=== PATIENT | male | born 1950 | race Caucasian/White ===

== ENCOUNTER 2017-12-11 03:58 | Observation (INO) | payer MEDICARE, OTHER ==
[2017-12-11] MEDS ORDERED: NITROGLYCERIN SL TABS 0.4 MG TAB SUBLINGUAL PRN (04:35)
[2017-12-11] MEDS ORDERED: diphenhydrAMINE 25 MG CAP PO PRN (04:37)
[2017-12-11] MEDS ORDERED: MELATONIN 1 MG TAB PO PRN (04:37)
--- NOTE | 2017-12-11 04:38 | ED ---
Chest Pain HPI - General Chief Complaint: Chest Pain Stated Complaint: Chest pain Time Seen by Provider: 12/11/17 04:06 Source: patient Mode of arrival: EMS Limitations: no limitations - History of Present Illness Initial Comments: This patient is 67-year-old man transferred here from [facility]. He presented there with substernal chest pain. He's been having intermittent episodes like this going back days to weeks. He states that the pain is brought on by exertion and relieved by rest. He states that he also believes the pain can be brought on if his potassium gets low, though he also gets body aches associated with this. The patient had gone to [facility], the physician there had discussed his case with college hire who felt that he should be transferred here to have telemetry monitoring and serial cardiac enzymes. The patient states that his symptoms have resolved by the time he arrives here. MD Complaint: chest pain -: days(s) Onset: during exertion Pain Location: substernal Pain Radiation: none Severity: moderate Quality: aching Consistency: now resolved Improves With: rest, other (Potassium) - Related Data Home Medications Medication Instructions Recorded Confirmed ALPRAZolam [Xanax] 0.25 mg PO TID 12/11/17 12/11/17 Aspirin EC [Ecotrin Low Dose] 81 mg PO DAILY 12/11/17 12/11/17 Atenolol [Tenormin] 25 mg PO DAILY 12/11/17 12/11/17 Furosemide [Lasix] 40 mg PO BID 12/11/17 12/11/17 Metolazone [Zaroxolyn] 5 mg PO DAILY 12/11/17 12/11/17 Potassium Chloride ER [K-Dur 20] 20 meq PO DAILY 12/11/17 12/11/17 Previous Rx's Medication Instructions Recorded Clopidogrel [Plavix] 75 mg PO DAILY #30 tab 12/17/13 Nitroglycerin Sl Tabs [Nitrostat] 0.4 mg SUBLINGUAL Q5M PRN #25 tab 03/23/14 Allergies Allergy/AdvReac Type Severity Reaction Status Date / Time heparin Allergy Unknown Verified 12/11/17 09:31 warfarin [From Coumadin] Allergy Unknown Verified 12/11/17 09:31 lisinopril AdvReac Intermediate Unknown Verified 12/11/17 09:31 Review of Systems ROS Statement: Those systems with pertinent positive or pertinent negative responses have been documented in the HPI. ROS Other: All systems not noted in ROS Statement are negative. Constitutional: Denies: fever Respiratory: Denies: cough, dyspnea Cardiovascular: Reports: chest pain, dyspnea on exertion. Denies: palpitations , orthopnea, edema, syncope Gastrointestinal: Denies: abdominal pain, vomiting, diarrhea Genitourinary: Denies: dysuria, hematuria Musculoskeletal: Denies: back pain Skin: Denies: rash Neurological: Denies: headache, weakness, numbness EKG Findings - EKG Results: EKG: interpreted by ERMD, normal axis EKG shows: atrial fibrillation - Blocks, [place], Hypertrophy, ST Abn: Repolarization changes or abnormalities: ST or T wave suggestive of ischemia ( There are ST depressions in 2, 3, aVF, V3 through 5 concerning for ischemia. The transferring physician reports these are present on the previous EKG) Past Medical History Past Medical History: Chest Pain / Angina, Hyperlipidemia, Hypertension, Myocardial Infarction ([place]), Mitral Valve Prolapse (MVP) Additional Past Medical History / Comment(s): hx closed head injury, mild he will lysis likely related to his mitral valve repair and ring placement causing intravascular hemolytic lysis. Was seen by hematology back in September 2013 hospitalization. CABG 08/27/2013 Last Myocardial Infarction Date:: 2004 History of Any Multi-Drug Resistant Organisms: None Reported Past Surgical History: Coronary Bypass/CABG, Heart Catheterization With Stent, Tonsillectomy Additional Past Surgical History / Comment(s): mitral valve repair Past Anesthesia/Blood Transfusion Reactions: Previous Problems w/ Anesthesia Additional Past Anesthesia/Blood Transfusion Reaction / Comment(s): confusion and lost memory from anesthesia Date of Last Stent Placement:: 2004 Past Psychological History: Anxiety Smoking Status: Former smoker Past Alcohol Use History: None Reported Past Drug Use History: None Reported - Past Family History Father Family Medical History: Myocardial Infarction ([place]) Additional Family Medical History / Comment(s): Father of a heart attack at age 55 General Exam Limitations: no limitations General appearance: alert, in no apparent distress Head exam: Present: atraumatic, normocephalic Eye exam: Present: normal appearance. Absent: scleral icterus, conjunctival injection ENT exam: Present: normal oropharynx Respiratory exam: Present: normal lung sounds bilaterally. Absent: respiratory distress, wheezes, rales, rhonchi, stridor Cardiovascular Exam: Present: irregular rhythm, systolic murmur (Grade 2/6 systolic ejection murmur). Absent: diastolic murmur, rubs, gallop GI/Abdominal exam: Present: soft. Absent: distended, tenderness, guarding, rebound, mass Extremities exam: Present: normal inspection, normal capillary refill. Absent: pedal edema, calf tenderness Back exam: Present: normal inspection. Absent: CVA tenderness (R), CVA tenderness (L) Neurological exam: Present: alert Skin exam: Present: warm, dry, intact, other (Chronic venous stasis changes to the bilateral lower extremities. No evidence of cellulitis.). Absent: rash Course Vital Signs 12/11/17 12/11/17 12/11/17 04:05 04:29 05:11 Temperature 98.2 F 98.1 F Pulse Rate 91 89 Pulse Rate [ 112 H Or First Assist Registered Nurse ] Respiratory 18 18 Rate Blood Pressure 161/84 130/68 O2 Sat by Pulse 100 99 Oximetry Chest Pain [facility] Patient's 67-year-old man with intermittent chest pain, transferred here for telemetry monitoring, serial cardiac enzymes, cardiology evaluation. The patient does have a heparin ALLERGY Disposition Clinical Impression: Chest pain Disposition: ADMITTED IP TO THIS HOSP Condition: Fair
[2017-12-11] MEDS ORDERED: NITROGLYCERIN OINT 1 INCH/GM PACKET TOPICAL SCH (06:00)
[2017-12-11 06:04] VITALS: BMI 27.5
[2017-12-11 08:48] VITALS: RESP 16
[2017-12-11] MEDS ORDERED: LOSARTAN 25 MG TAB PO SCH (09:00)
[2017-12-11] MEDS ORDERED: DILTIAZEM ORAL 60 MG TAB PO SCH (09:00)
[2017-12-11] MEDS ORDERED: ATENOLOL 25 MG TAB PO SCH ×2 (09:00→21:00)
[2017-12-11] MEDS ORDERED: CLOPIDOGREL 75 MG TAB PO SCH (09:00)
[2017-12-11] MEDS ORDERED: FUROSEMIDE 40 MG TAB PO SCH (09:00)
[2017-12-11 09:20] LABS: Albumin 3.9 g/dL (3.5-5.0); Calcium 8.9 mg/dL (8.4-10.2); Total Bilirubin 1.6 mg/dL (0.2-1.3); Total Protein 7.3 g/dL (6.3-8.2)
[2017-12-11] MEDS ORDERED: FUROSEMIDE 10 MG/ML 4 ML VIAL IV SCH (11:15)
--- NOTE | 2017-12-11 11:28 | P.HPIM ---
History of Present Illness 67-year-old gentleman with known history of coronary artery disease with CABG stent to LAD, mitral valve replacement, removal of atrial appendage for atrial fibrillation and as per the patient with heart failure ejection fraction of 40 with 50% given with complaints of chest pressure-like sensation lasted for a few hours denied any diaphoresis was comparing of some on and off shortness of breath cannot did not give a clear history of orthopnea paroxysmal nocturnal dyspnea. Patient's baseline creatinine 2014 was around 0.8 and now around 1.4 patient has mild pleural effusion. Patient denied any fever chills patient was having some chronic cough since his CABG probably from DARIANA inhibitor, patient was also having bilateral pedal edema hypokalemia. Review of Systems REVIEW OF SYSTEMS: CONSTITUTIONAL: No fever, no malaise, no fatigue. HEENT: No recent visual problems or hearing problems. Denied any sore throat. CARDIOVASCULAR: No orthopnea, PND, no palpitations, no syncope. PULMONARY no hemoptysis. GASTROINTESTINAL: No diarrhea, no nausea, no vomiting, no abdominal pain. Normoactive bowel sounds. NEUROLOGICAL: No headaches, no weakness, no numbness. HEMATOLOGICAL: Denies any bleeding or petechiae. GENITOURINARY: Denies any burning micturition, frequency, or urgency. MUSCULOSKELETAL/RHEUMATOLOGICAL: Denies any joint pain, swelling, or any muscle pain. ENDOCRINE: Denies any polyuria or polydipsia. The rest of the 14-point review of systems is negative. Past Medical History Past Medical History: Chest Pain / Angina, Hyperlipidemia, Hypertension, Myocardial Infarction ([place]), Mitral Valve Prolapse (MVP) Additional Past Medical History / Comment(s): hx closed head injury, mild he will lysis likely related to his mitral valve repair and ring placement causing intravascular hemolytic lysis. Was seen by hematology back in September 2013 hospitalization. CABG 08/27/2013 Last Myocardial Infarction Date:: 2004 History of Any Multi-Drug Resistant Organisms: None Reported Past Surgical History: Coronary Bypass/CABG, Heart Catheterization With Stent, Tonsillectomy Additional Past Surgical History / Comment(s): mitral valve repair Past Anesthesia/Blood Transfusion Reactions: Previous Problems w/ Anesthesia Additional Past Anesthesia/Blood Transfusion Reaction / Comment(s): confusion and lost memory from anesthesia Date of Last Stent Placement:: 2004 Past Psychological History: Anxiety Smoking Status: Former smoker Past Alcohol Use History: None Reported Past Drug Use History: None Reported - Past Family History Father Family Medical History: Myocardial Infarction ([place]) Additional Family Medical History / Comment(s): Father of a heart attack at age 55 Medications and Allergies Home Medications Medication Instructions Recorded Confirmed Type Clopidogrel [Plavix] 75 mg PO DAILY #30 tab 12/17/13 12/11/17 Rx Nitroglycerin Sl Tabs [Nitrostat] 0.4 mg SUBLINGUAL Q5M PRN #25 tab 03/23/14 Rx ALPRAZolam [Xanax] 0.25 mg PO TID 12/11/17 12/11/17 History Aspirin EC [Ecotrin Low Dose] 81 mg PO DAILY 12/11/17 12/11/17 History Atenolol [Tenormin] 25 mg PO DAILY 12/11/17 12/11/17 History Furosemide [Lasix] 40 mg PO BID 12/11/17 12/11/17 History Metolazone [Zaroxolyn] 5 mg PO DAILY 12/11/17 12/11/17 History Potassium Chloride ER [K-Dur 20] 20 meq PO DAILY 12/11/17 12/11/17 History Allergies Allergy/AdvReac Type Severity Reaction Status Date / Time heparin Allergy Unknown Verified 12/11/17 09:31 warfarin [From Coumadin] Allergy Unknown Verified 12/11/17 09:31 lisinopril AdvReac Intermediate Unknown Verified 12/11/17 09:31 Physical Exam Vitals: Vital Signs Temp Pulse Pulse Pulse Resp BP BP 12/11/17 08:00 97.7 F 88 16 138/74 12/11/17 06:08 112 H 18 12/11/17 05:11 98.1 F 89 18 130/68 12/11/17 04:29 112 H 12/11/17 04:05 98.2 F 91 18 161/84 Pulse Ox 12/11/17 08:00 97 12/11/17 06:08 12/11/17 05:11 99 12/11/17 04:29 12/11/17 04:05 100 Intake and Output 12/10/17 12/11/17 12/11/17 22:59 06:59 14:59 Intake Total 500 Balance 500 Intake: Oral 500 Other: # Voids 1 Weight 87.1 kg PHYSICAL EXAMINATION: GENERAL: The patient is alert and oriented x3, not in any acute distress. Well developed, well nourished. HEENT: Pupils are round and equally reacting to light. EOMI. No scleral icterus. No conjunctival pallor. Normocephalic, atraumatic. No pharyngeal erythema. No thyromegaly. CARDIOVASCULAR: S1 and S2 present. No murmurs, rubs, or gallops. PULMONARY: Chest is clear to auscultation, no wheezing or crackles. ABDOMEN: Soft, nontender, nondistended, normoactive bowel sounds. No palpable organomegaly. MUSCULOSKELETAL: No joint swelling or deformity. EXTREMITIES: No cyanosis, clubbing, does have bilateral pitting pedal edema NEUROLOGICAL: Gross neurological examination did not reveal any focal deficits. SKIN: No rashes. Results CBC & Chem 7: 12/11/17 04:27 Labs: Abnormal Lab Results - Last 24 Hours (Table) 12/11/17 Range/Units 04:27 Sodium 136 L (137-145) mmol/L Chloride 96 L (98-107) mmol/L BUN 56 H (9-20) mg/dL Creatinine 1.44 H (0.66-1.25) mg/dL Glucose 111 H (74-99) mg/dL Total Bilirubin 1.6 H (0.2-1.3) mg/dL Alkaline Phosphatase 170 H (38-126) U/L Thrombosis Risk Factor Assmnt - Choose All That Apply Each Risk Factor Represents 2 Points: Age 61-74 years Thrombosis Risk Factor Assessment Total Risk Factor Score: 2 Thrombosis Risk Factor Assessment Level: Low Risk Assessment and Plan Plan: chest pain: We'll rule out acute coronary syndromes cardiology is consulted to assess of troponins and EKG EKG showed ST-T wave depressions in anterolateral leads with T-wave inversions in the anterior leads which appear to be old changes. -Congestive heart failure chronic systolic dysfunction mild systolic dysfunction with mild acute exacerbation patient was switched to IV Lasix -Chronic kidney disease stage II with possible acute kidney injury probably from heart failure expected to improve with the Lasix -History of atrial fibrillation removal of atrial appendage in the past patient is not on any anticoagulation at this time. No issues with the atrial fibrillation since his surgery. -Hyperlipidemia -History of mitral valve prolapse status post replacement -Coronary artery disease with CABG in the past -Hypertension
[2017-12-11 11:52] VITALS: BP 145/72; PULSE 102; TEMP 98.1
--- NOTE | 2017-12-11 12:42 | P.DS ---
Providers Date of admission: 12/11/17 04:37 Expected date of discharge: 12/11/17 Attending physician: Bunny Portillo Consults: 12/11/17 04:35 Consult Physician Urgent Consulting Provider: Terry Haney Consult Reason/Comments: chest pain Do you want consulting provider notified?: Yes Primary care physician: [facility] Course: Final Diagnoses: chest pain: rule out acute coronary syndromes cardiology is consulted to assess of troponins and EKG EKG showed ST-T wave depressions in anterolateral leads with T-wave inversions in the anterior leads which appear to be old changes. Cleared by cardiology, patient to [facility], and will see Dr. NORMAN Solano at 1500 today as previously scheduled. -Congestive heart failure chronic systolic dysfunction mild systolic dysfunction with mild acute exacerbation. -Chronic kidney disease stage II with possible acute kidney injury. -History of atrial fibrillation removal of atrial appendage in the past patient is not on any anticoagulation at this time. No issues with the atrial fibrillation since his surgery. -Hyperlipidemia -History of mitral valve prolapse status post replacement -Coronary artery disease with CABG in the past -Hypertension 67-year-old gentleman with known history of coronary artery disease with CABG stent to LAD, mitral valve replacement, removal of atrial appendage for atrial fibrillation and as per the patient with heart failure ejection fraction of 40 with 50% given with complaints of chest pressure-like sensation lasted for a few hours denied any diaphoresis was comparing of some on and off shortness of breath cannot did not give a clear history of orthopnea paroxysmal nocturnal dyspnea. Patient's baseline creatinine 2014 was around 0.8 and now around 1.4 patient has mild pleural effusion. Patient denied any fever chills patient was having some chronic cough since his CABG probably from DARIANA inhibitor, patient was also having bilateral pedal edema hypokalemia. Evaluated by Dr. Meier, cardiology and cleared for discharge.[facility] to proceed [facility], and maintain appointment with Dr. NORMAN Solano at 1500 today as previously scheduled. Denies chest pain, palpitations or increased shortness of breath. Significant clinical improvement. Patient is being discharged home in a stable condition with her prognosis. EXAMINATION: GENERAL: The patient is alert and oriented x3, not in any acute distress. CARDIOVASCULAR: S1 and S2 present. No murmurs, rubs, or gallops. PULMONARY: Chest is clear to auscultation, no wheezing or crackles. ABDOMEN: Soft, nontender, nondistended, normoactive bowel sounds. NEUROLOGICAL: Gross neurological examination did not reveal any focal deficits. The impression and plan of care has been dictated as directed. : I performed a history and examination of this patient, discussed the same with the dictator. I agree with the dictator's note ,documented as a scribe. Any additional findings or plans will be noted. Time taken: 35 minutes Patient Condition at Discharge: Stable Plan - Discharge Summary New Discharge Prescriptions: Continue Clopidogrel [Plavix] 75 mg PO DAILY #30 tab Nitroglycerin Sl Tabs [Nitrostat] 0.4 mg SUBLINGUAL Q5M PRN #25 tab PRN Reason: Chest Pain Potassium Chloride ER [K-Dur 20] 20 meq PO DAILY ALPRAZolam [Xanax] 0.25 mg PO TID Aspirin EC [Ecotrin Low Dose] 81 mg PO DAILY Furosemide [Lasix] 40 mg PO BID Changed Atenolol [Tenormin] 25 mg PO BID #0 Discontinued Metolazone [Zaroxolyn] 5 mg PO DAILY Discharge Medication List Clopidogrel [Plavix] 75 mg PO DAILY #30 tab 12/17/13 [Rx] Nitroglycerin Sl Tabs [Nitrostat] 0.4 mg SUBLINGUAL Q5M PRN #25 tab 03/23/14 [Rx ] ALPRAZolam [Xanax] 0.25 mg PO TID 12/11/17 [History] Aspirin EC [Ecotrin Low Dose] 81 mg PO DAILY 12/11/17 [History] Atenolol [Tenormin] 25 mg PO BID #0 12/11/17 [Rx] Furosemide [Lasix] 40 mg PO BID 12/11/17 [History] Potassium Chloride ER [K-Dur 20] 20 meq PO DAILY 12/11/17 [History] Follow up Appointment(s)/Referral(s): Charles Antoine MD [Primary Care Provider] - 3 Days Lavonne Solano MD [STAFF PHYSICIAN] - 12/11/17 Ambulatory/Diagnostic Orders: Complete Blood Count w/diff [LAB.AMB] Time Frame: 3 Days, Location: None Selected
--- NOTE | 2017-12-11 14:21 | P.CRDCN ---
History of Present Illness History of present illness: Mr. 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 He recently established with Dr. NORMAN Solano last week. He had previously followed with Dr. Okeefe. When he saw Dr. Solano last week his medications were adjusted. He was previously on aldactone which was stopped due to significant breast tenderness. Blood work was drawn one week after stopping aldactone and his potassium was 2.7. He was called at home and instructed to take increased oral potassium and then see Dr. Solano in the office today at 1500. He states he was trying to take the increased potassium but he felt so weak, tired and was crampy all over. He went to ED at [facility] and his potassium was 3.3, magnesium 2.2. He was transferred here for further evaluation. He denies chest pain, shortness of breath, nausea, vomiting, palpitations, diaphoresis or dizziness. He states he is feeling much better with no further symptoms of weakness or fatigue. EKG reveals atrial fibrillation with controlled ventricular response, heart rate 85, ST depression noted in the inferior leads with T-wave inversion, ST depression noted in precordial leads. Compared to old EKG this is not a new finding. Laboratory data obtained here reveals sodium 136, creatinine 1.44, proBNP 2002 130, cardiac enzymes negative 1. Current cardiac medications include aspirin 81 mg daily, atenolol 25 mg twice a day, Plavix 75 mg daily, Lasix 40 mg twice a day potassium supplementation. Most recently underwent a RAQUEL at [facility] July 2017 revealed reduced LV systolic function with ejection fraction 40-45%, mildly thickened mitral valve leaflets with moderate to severe MR, mild systolic flattening of the septum, moderately dilated left atrium, moderately to severely dilated right atrium and moderate tricuspid regurgitation. Review of Systems At the time of my exam: CONSTITUTIONAL: Denies fever. Denies chills. EYES: Denies blurred vision. Denies vision changes. Denies eye pain. EARS, NOSE, MOUTH & THROAT: Denies headache. Denies sore throat. Denies ear pain. CARDIOVASCULAR: Denies chest pain. Denies shortness of breath. Denies orthopnea. Denies PND. Denies palpitations. RESPIRATORY: Denies cough. GASTROINTESTINAL: Denies abdominal pain. Denies diarrhea. Denies constipation. Denies nausea. Denies vomiting. MUSCULOSKELETAL: Denies myalgias. INTEGUMENTARY: Denies pruitis. Denies rash. NEUROLOGIC: Denies numbness. Denies tingling. Denies weakness. PSYCHIATRIC: Denies anxiety. Denies depression. ENDOCRINE: Denies fatigue. Denies weight change. Denies polydipsia. Denies polyurina. GENITOURINARY: Denies burning, hematuria or urgency with micturation. HEMATOLOGIC: Denies history of anemia. Denies bleeding. Past Medical History Past Medical History: Chest Pain / Angina, Hyperlipidemia, Hypertension, Myocardial Infarction ([place]), Mitral Valve Prolapse (MVP) Additional Past Medical History / Comment(s): hx closed head injury, mild he will lysis likely related to his mitral valve repair and ring placement causing intravascular hemolytic lysis. Was seen by hematology back in September 2013 hospitalization. CABG 08/27/2013 Last Myocardial Infarction Date:: 2004 History of Any Multi-Drug Resistant Organisms: None Reported Past Surgical History: Coronary Bypass/CABG, Heart Catheterization With Stent, Tonsillectomy Additional Past Surgical History / Comment(s): mitral valve repair Past Anesthesia/Blood Transfusion Reactions: Previous Problems w/ Anesthesia Additional Past Anesthesia/Blood Transfusion Reaction / Comment(s): confusion and lost memory from anesthesia Date of Last Stent Placement:: 2004 Past Psychological History: Anxiety Smoking Status: Former smoker Past Alcohol Use History: None Reported Past Drug Use History: None Reported - Past Family History Father Family Medical History: Myocardial Infarction ([place]) Additional Family Medical History / Comment(s): Father of a heart attack at age 55 Medications and Allergies Home Medications Medication Instructions Recorded Confirmed Type Clopidogrel [Plavix] 75 mg PO DAILY #30 tab 12/17/13 12/11/17 Rx Nitroglycerin Sl Tabs [Nitrostat] 0.4 mg SUBLINGUAL Q5M PRN #25 tab 03/23/14 Rx ALPRAZolam [Xanax] 0.25 mg PO TID 12/11/17 12/11/17 History Aspirin EC [Ecotrin Low Dose] 81 mg PO DAILY 12/11/17 12/11/17 History Atenolol [Tenormin] 25 mg PO BID #0 12/11/17 12/11/17 Rx Furosemide [Lasix] 40 mg PO BID 12/11/17 12/11/17 History Potassium Chloride ER [K-Dur 20] 20 meq PO DAILY 12/11/17 12/11/17 History Allergies Allergy/AdvReac Type Severity Reaction Status Date / Time heparin Allergy Unknown Verified 12/11/17 09:31 warfarin [From Coumadin] Allergy Unknown Verified 12/11/17 09:31 lisinopril AdvReac Intermediate Unknown Verified 12/11/17 09:31 Physical Exam Vitals: Vital Signs Temp Pulse Pulse Pulse Resp BP BP 12/11/17 11:51 98.1 F 102 H 16 145/72 12/11/17 08:00 97.7 F 88 16 138/74 12/11/17 06:08 112 H 18 12/11/17 05:11 98.1 F 89 18 130/68 12/11/17 04:29 112 H 12/11/17 04:05 98.2 F 91 18 161/84 Pulse Ox 12/11/17 11:51 97 12/11/17 08:00 97 12/11/17 06:08 12/11/17 05:11 99 12/11/17 04:29 12/11/17 04:05 100 Intake and Output 12/10/17 12/11/17 12/11/17 22:59 06:59 14:59 Intake Total 500 Balance 500 Intake: Oral 500 Other: Voiding Method Toilet # Voids 1 Weight 87.1 kg Blood pressure 138/74 heart rate 88 afebrile maintaining oxygen saturation on room air GENERAL: This is a 67-year-old male in no apparent distress at the time of my examination. HEENT: Head is atraumatic, normocephalic. Pupils are equal, round. Sclerae anicteric. Conjunctivae are clear. Mucous membranes of the mouth are moist. Neck is supple. There is no jugular venous distention. No carotid bruit is heard. LUNGS: Clear to auscultation no wheezes, rales or rhonchi. No chest wall tenderness is noted on palpation or with deep breathing. HEART: Irregular rate and rhythm with systolic ejection murmur, no rubs or gallops. S1 and S2 heard. ABDOMEN: Soft, nontender. Bowel sounds are heard. No organomegaly noted. EXTREMITIES: 1+ bilateral lower extremity edema and no calf tenderness noted. Patient states this is much improved over the previous week. VASCULAR: Radial and dorsalis pedis pulses palpated, no evidence of clubbing. NEUROLOGIC: Patient is awake, alert and oriented x3. Results 12/11/17 04:27 Cardiac Enzymes 12/11/17 12/11/17 Range/Units 04:27 04:27 AST 45 (17-59) U/L Troponin I 0.019 (0.000-0.034) ng/mL Comprehensive Metabolic Panel 12/11/17 Range/Units 04:27 Sodium 136 L (137-145) mmol/L Potassium (3.5-5.1) mmol/L Chloride 96 L (98-107) mmol/L Carbon Dioxide 27 (22-30) mmol/L BUN 56 H (9-20) mg/dL Creatinine 1.44 H (0.66-1.25) mg/dL Glucose 111 H (74-99) mg/dL Calcium 8.9 (8.4-10.2) mg/dL AST 45 (17-59) U/L ALT 37 (21-72) U/L Alkaline Phosphatase 170 H (38-126) U/L Total Protein 7.3 (6.3-8.2) g/dL Albumin 3.9 (3.5-5.0) g/dL Intake and Output 12/10/17 12/11/17 12/11/17 22:59 06:59 14:59 Intake Total 500 Balance 500 Intake: Oral 500 Other: Voiding Method Toilet # Voids 1 Weight 87.1 kg 12/11/17 04:27 Assessment and Plan Assessment: ASSESSMENT Hypokalemia, resolved Chronic persistent atrial fibrillation not on middle or intermediate school principal anticoagulation History of coronary artery disease status post bypass grafting and multiple stents History of ischemic cardiomyopathy, last ejection fraction 40-45% Hypertension Dyslipidemia, patient refuses to take statin medication. History of mitral valve prolapse status post repair and subsequent mitral regurgitation PLAN Potassium level has significantly improved. Ongoing lower extremity edema is improving with recent medications changes per Dr. Solano. Stable from a cardiac perspective to go home on current medications to see Dr. Solano in the office at 1500 today. Thank you kindly for this consultation. Nurse Practitioner note has been reviewed, I agree with a documented findings and plan of care. Patient was seen and examined.
[2017-12-11 15:21] LABS: Potassium 3.3 mmol/L (3.5-5.1)
[2017-12-11] MEDS ORDERED: ATORVASTATIN 80 MG TAB PO SCH (21:00)
[2017-12-12] MEDS ORDERED: ASPIRIN 325 MG TAB PO SCH (09:00)
[2017-12-12] MEDS ORDERED: ASPIRIN 81 MG PO SCH (09:00)
== END 2017-12-11 13:17 | disposition home or self-care (01) ==
LOC: EC 03:58 → 3OBS 04:37
PROVIDERS: ADMIT Internal Medicine; ATTEND Internal Medicine
DX: R07.89 Other chest pain (principal); E87.6 Hypokalemia; J90 Pleural effusion, not elsewhere classified; I25.5 Ischemic cardiomyopathy; I48.1 Persistent atrial fibrillation; I48.2 Chronic atrial fibrillation; I13.0 Hypertensive heart and chronic kidney disease with heart failure and stage 1 through stage 4 chronic kidney disease, or unspecified chronic kidney disease; N18.2 Chronic kidney disease, stage 2 (mild); I50.23 Acute on chronic systolic (congestive) heart failure; I36.1 Nonrheumatic tricuspid (valve) insufficiency; I25.10 Atherosclerotic heart disease of native coronary artery without angina pectoris; F41.9 Anxiety disorder, unspecified; E78.5 Hyperlipidemia, unspecified; Z79.82 Long term (current) use of aspirin; Z79.02 Long term (current) use of antithrombotics/antiplatelets; Z79.899 Other long term (current) drug therapy; Z88.8 Allergy status to other drugs, medicaments and biological substances; Z95.1 Presence of aortocoronary bypass graft; Z95.5 Presence of coronary angioplasty implant and graft; Z95.2 Presence of prosthetic heart valve; Z87.891 Personal history of nicotine dependence; Z87.820 Personal history of traumatic brain injury; Z82.49 Family history of ischemic heart disease and other diseases of the circulatory system
CPT/HCPCS: 99285 ×2; 96374; 36415; 93005; 83880; 80053; 84484; G0378; J1940

== ENCOUNTER 2019-05-12 14:54 | Observation (INO) | payer MEDICARE, OTHER ==
[2019-05-12] MEDS ORDERED: SODIUM CHLORIDE 0.9% 1,000 ML IV STA ×2 (15:17)
--- NOTE | 2019-05-12 15:28 | ED ---
General Adult HPI - General Chief complaint: Recheck/Abnormal Lab/Rx Stated complaint: low hemoglobin Time Seen by Provider: 05/12/19 15:01 Source: patient, EMS, RN notes reviewed, old records reviewed Mode of arrival: ambulatory Limitations: physical limitation - History of Present Illness Initial comments: Patient is a 69-year-old male with history of heart disease, and recent histories of GI bleed. Patient reports that he is currently staying at [facility] and initially signed hospice papers in regards to his health and multiple cardiac issues. Patient reports that when he was discharged from [facility] and sent to [facility] the past few days. Patient reports on discharge at [facility] they will resume patient Eliquis. Patient reports that he has been feeling increased fatigue, and has noted that he has had some darker stools within the past 2 days of returning to [facility]. Patient states that he has had this happen before when he was placed on Eliquis again. Patient states that he has no specific pains at this time. He states that he is just feeling generally very weak and fell. He reports that he has required blood tra nsfusions in the past. Patient states that upon arriving here he does not want to be on hospice criteria anymore, and wants to be a full code. Patient states that he was told by hospice nurse he could change his mind at any time for hospice versus full care choices. - Related Data Home Medications Medication Instructions Recorded Confirmed ALPRAZolam [Xanax] 0.25 mg PO TID 12/11/17 12/11/17 Aspirin EC [Ecotrin Low Dose] 81 mg PO DAILY 12/11/17 12/11/17 Furosemide [Lasix] 40 mg PO BID 12/11/17 12/11/17 Potassium Chloride ER [K-Dur 20] 20 meq PO DAILY 12/11/17 12/11/17 Previous Rx's Medication Instructions Recorded Clopidogrel [Plavix] 75 mg PO DAILY #30 tab 12/17/13 Nitroglycerin Sl Tabs [Nitrostat] 0.4 mg SUBLINGUAL Q5M PRN #25 tab 03/23/14 Atenolol [Tenormin] 25 mg PO BID #0 12/11/17 Allergies Allergy/AdvReac Type Severity Reaction Status Date / Time heparin Allergy Unknown Verified 12/11/17 09:31 warfarin [From Coumadin] Allergy Unknown Verified 12/11/17 09:31 lisinopril AdvReac Intermediate Unknown Verified 12/11/17 09:31 Review of Systems ROS Statement: Those systems with pertinent positive or pertinent negative responses have been documented in the HPI. ROS Other: All systems not noted in ROS Statement are negative. Past Medical History Past Medical History: Chest Pain / Angina, Hyperlipidemia, Hypertension, Myocardial Infarction ([place]), Mitral Valve Prolapse (MVP) Additional Past Medical History / Comment(s): hx closed head injury, mild he will lysis likely related to his mitral valve repair and ring placement causing intravascular hemolytic lysis. Was seen by hematology back in September 2013 hospitalization. CABG 08/27/2013 Last Myocardial Infarction Date:: 2004 History of Any Multi-Drug Resistant Organisms: None Reported Past Surgical History: Coronary Bypass/CABG, Heart Catheterization With Stent, Tonsillectomy Additional Past Surgical History / Comment(s): mitral valve repair Past Anesthesia/Blood Transfusion Reactions: Previous Problems w/ Anesthesia Additional Past Anesthesia/Blood Transfusion Reaction / Comment(s): confusion and lost memory from anesthesia Date of Last Stent Placement:: 2004 Past Psychological History: Anxiety Smoking Status: Former smoker Past Alcohol Use History: None Reported Past Drug Use History: None Reported - Past Family History Father Family Medical History: Myocardial Infarction ([place]) Additional Family Medical History / Comment(s): Father of a heart attack at age 55 General Exam - General Exam Comments Initial Comments: 69-year-old male. Patient appears pale. He is resting comfortably in bed. Denies any complaints of pain. Does appear to be generally weak. Limitations: physical limitation General appearance: alert, in no apparent distress Head exam: Present: atraumatic, normocephalic, normal inspection Eye exam: Present: normal appearance, PERRL, EOMI. Absent: scleral icterus, conjunctival injection, periorbital swelling ENT exam: Present: normal exam, mucous membranes moist Neck exam: Present: normal inspection. Absent: tenderness, meningismus, lymphadenopathy Respiratory exam: Present: normal lung sounds bilaterally. Absent: respiratory distress, wheezes, rales, rhonchi, stridor Cardiovascular Exam: Present: regular rate, normal rhythm, normal heart sounds. Absent: systolic murmur, diastolic murmur, rubs, gallop, clicks GI/Abdominal exam: Present: soft, normal bowel sounds, other. Absent: distended, tenderness, guarding, rebound, rigid Rectal exam: Present: normal rectal tone, black stool. Absent: normal inspection Extremities exam: Present: normal inspection, full ROM, normal capillary refill. Absent: tenderness, pedal edema, joint swelling, calf tenderness Back exam: Present: normal inspection Neurological exam: Present: alert, oriented X3, CN II-XII intact Psychiatric exam: Present: normal affect, normal mood Skin exam: Present: warm, dry, intact, normal color. Absent: rash Course Vital Signs 05/12/19 14:57 Temperature 97.0 F L Pulse Rate 101 H Respiratory 18 Rate Blood Pressure 116/70 O2 Sat by Pulse 100 Oximetry EKG Findings - EKG Comments: EKG Findings:: EKG shows atrial fibrillation, Patient reports this is chronic. ST-T wave abnormality considering anterolateral ischemia. Patient saturating 94 bpm. [place] normal undetected. QRS duration 88 ms. QT QTc is 360/450. Medical Decision Making - Medical Decision Making 59-year-old male presents from [facility], for low hemoglobin weakness. Patient denies pains. Patient is of sound mind and states that he does not want to be on hospice upon arriving to emergency department at this time. And does want full resuscitation and blood products. He does have an occult positive stool. Currently pending records from [facility] for patient's previous scopes within the past month for previous GI bleed. He reports he believes that this started after he was resumed on Elquis when returning to the [facility] facility the past 2 days. Patient is stool occult positive. Patient is hemoglobin at this time is 6.9. Given 1 unit of PRBCs. Patient had EKG which shows atrial fibrillation, with some anterolateral T-wave inversions. These were present on previous EKGs. He denies any chest pain. I discussed the case with Dr. Daugherty will admit the Patient. I then discussed the case with Allyssa SANTIAGO for [facility] hospitalist. Consult GI. - Lab Data Result diagrams: 05/12/19 15:39 05/12/19 15:39 Lab Results 05/12/19 05/12/19 05/12/19 Range/Units 15:39 15:39 15:39 WBC 9.3 (3.8-10.6) k/uL RBC 2.65 L (4.30-5.90) m/uL Hgb 6.9 L* (13.0-17.5) gm/dL Hct 22.9 L (39.0-53.0) % MCV 86.2 (80.0-100.0) fL MCH 26.1 (25.0-35.0) pg MCHC 30.3 L (31.0-37.0) g/dL RDW 20.6 H (11.5-15.5) % Plt Count 250 (150-450) k/uL Neutrophils % 78 % Lymphocytes % 9 % Monocytes % 6 % Eosinophils % 5 % Basophils % 0 % Neutrophils # 7.3 (1.3-7.7) k/uL Lymphocytes # 0.9 L (1.0-4.8) k/uL Monocytes # 0.5 (0-1.0) k/uL Eosinophils # 0.4 (0-0.7) k/uL Basophils # 0.0 (0-0.2) k/uL Hypochromasia Marked Poikilocytosis Slight Anisocytosis Moderate APTT (22.0-30.0) sec Sodium 130 L (137-145) mmol/L Potassium 4.6 (3.5-5.1) mmol/L Chloride 97 L (98-107) mmol/L Carbon Dioxide 27 (22-30) mmol/L Anion Gap 6 mmol/L BUN 43 H (9-20) mg/dL Creatinine 1.34 H (0.66-1.25) mg/dL Est GFR (CKD-EPI)AfAm 63 (>60 ml/min/1.73 sqM) Est GFR (CKD-EPI)NonAf 55 (>60 ml/min/1.73 sqM) Glucose 116 H (74-99) mg/dL Plasma Lactic Acid Angel (0.7-2.0) mmol/L Calcium 8.2 L (8.4-10.2) mg/dL Magnesium 2.2 (1.6-2.3) mg/dL Total Bilirubin 1.3 (0.2-1.3) mg/dL AST 27 (17-59) U/L ALT 11 (4-49) U/L Alkaline Phosphatase 231 H (38-126) U/L Total Protein 6.6 (6.3-8.2) g/dL Albumin 2.9 L (3.5-5.0) g/dL Lipase 232 (23-300) U/L Stool Occult Blood (Negative) Blood Type A Positive Blood Type Recheck A Pos Bld Type Recheck Status No Antibody Screen NEGATIVE Crossmatch See Detail Spec Expiration Date 05/15/2019 - 233805/12/19 05/12/19 05/12/19 Range/Units 15:39 15:39 15:50 WBC (3.8-10.6) k/uL RBC (4.30-5.90) m/uL Hgb (13.0-17.5) gm/dL Hct (39.0-53.0) % MCV (80.0-100.0) fL MCH (25.0-35.0) pg MCHC (31.0-37.0) g/dL RDW (11.5-15.5) % Plt Count (150-450) k/uL Neutrophils % % Lymphocytes % % Monocytes % % Eosinophils % % Basophils % % Neutrophils # (1.3-7.7) k/uL Lymphocytes # (1.0-4.8) k/uL Monocytes # (0-1.0) k/uL Eosinophils # (0-0.7) k/uL Basophils # (0-0.2) k/uL Hypochromasia Poikilocytosis Anisocytosis APTT 24.9 (22.0-30.0) sec Sodium (137-145) mmol/L Potassium (3.5-5.1) mmol/L Chloride (98-107) mmol/L Carbon Dioxide (22-30) mmol/L Anion Gap mmol/L BUN (9-20) mg/dL Creatinine (0.66-1.25) mg/dL Est GFR (CKD-EPI)AfAm (>60 ml/min/1.73 sqM) Est GFR (CKD-EPI)NonAf (>60 ml/min/1.73 sqM) Glucose (74-99) mg/dL Plasma Lactic Acid Angel 1.3 (0.7-2.0) mmol/L Calcium (8.4-10.2) mg/dL Magnesium (1.6-2.3) mg/dL Total Bilirubin (0.2-1.3) mg/dL AST (17-59) U/L ALT (4-49) U/L Alkaline Phosphatase (38-126) U/L Total Protein (6.3-8.2) g/dL Albumin (3.5-5.0) g/dL Lipase (23-300) U/L Stool Occult Blood Positive (Negative) Blood Type Blood Type Recheck Bld Type Recheck Status Antibody Screen Crossmatch Spec Expiration Date Disposition Clinical Impression: GI bleed Disposition: ADMITTED IP TO THIS [facility] Condition: Stable Is patient prescribed a controlled substance at d/c from ED?: No Referrals: Charles Antoine MD [Primary Care Provider] - 1-2 days Time of Disposition: 17:11
[2019-05-12 16:16] LABS: Anisocytosis Moderate; Basophils % (A) 0 %; Eosinophils # (A) 0.4 k/uL (0-0.7); Eosinophils % (A) 5 %; HCT 22.9 % (39.0-53.0); Hypochromasia Marked; Lymphocytes # (A) 0.9 k/uL (1.0-4.8); Lymphocytes % (A) 9 %; MCH 26.1 pg (25.0-35.0); MCHC 30.3 g/dL (31.0-37.0); MCV 86.2 fL (80.0-100.0); Mean Platelet Volume 9.3; Monocytes # (A) 0.5 k/uL (0-1.0); Monocytes % (A) 6 %; Neutrophils # (A) 7.3 k/uL (1.3-7.7); Neutrophils % (A) 78 %; Platelet Count 250 k/uL (150-450); Poikilocytosis Slight; RBC 2.65 m/uL (4.30-5.90); RDW 20.6 % (11.5-15.5); WBC 9.3 k/uL (3.8-10.6)
[2019-05-12 16:19] LABS: HGB 6.9 gm/dL (13.0-17.5)
[2019-05-12 16:23] LABS: Albumin 2.9 g/dL (3.5-5.0); Calcium 8.2 mg/dL (8.4-10.2); Magnesium 2.2 mg/dL (1.6-2.3); Potassium 4.6 mmol/L (3.5-5.1); Total Bilirubin 1.3 mg/dL (0.2-1.3); Total Protein 6.6 g/dL (6.3-8.2)
[2019-05-12] MEDS ORDERED: ONDANSETRON 4 MG/2 ML VIAL IVP PRN (17:14)
[2019-05-12] MEDS ORDERED: traMADol 50 MG TAB PO PRN (17:14)
[2019-05-12] MEDS ORDERED: ACETAMINOPHEN TAB 325 MG TAB PO PRN (17:14)
[2019-05-12] MEDS ORDERED: NALOXONE 0.4 MG/ML 1 ML VIAL IV PRN (17:14)
[2019-05-12] MEDS ORDERED: PANTOPRAZOLE 40 MG/10 ML VIAL IVP STA (17:17)
[2019-05-12] MEDS ORDERED: NITROGLYCERIN SL TABS 0.4 MG TAB SUBLINGUAL PRN (17:19)
[2019-05-12 20:56] LABS: Glucose,Whole Blood 135 mg/dL (75-99)
[2019-05-12] MEDS ORDERED: BISACODYL 10 MG SUPP RECTAL PRN (20:58)
[2019-05-12] MEDS ORDERED: ARTIFICIAL TEARS-HYPROMELLOSE DROPS 15 ML BTL BOTH EYES PRN (20:58)
[2019-05-12] MEDS ORDERED: MAGNESIUM HYDROXIDE 2,400 MG/10 ML CUP PO PRN (20:58)
[2019-05-12] MEDS ORDERED: POLYETHYLENE GLYCOL 3350 17 GM POWD.PACK PO PRN (20:58)
[2019-05-12] MEDS ORDERED: IPRATROPIUM-ALBUTEROL 3 ML NEB INHALATION PRN (20:58)
[2019-05-12] MEDS ORDERED: ATENOLOL 25 MG TAB PO SCH (21:00)
[2019-05-12 21:59] LABS: Anisocytosis Slight; Basophils % (A) 0 %; Eosinophils # (A) 0.6 k/uL (0-0.7); Eosinophils % (A) 6 %; HCT 23.6 % (39.0-53.0); Hypochromasia Marked; Lymphocytes % (A) 10 %; MCH 26.4 pg (25.0-35.0); MCHC 29.4 g/dL (31.0-37.0); MCV 89.5 fL (80.0-100.0); Mean Platelet Volume 10.7; Monocytes # (A) 0.6 k/uL (0-1.0); Monocytes % (A) 6 %; Neutrophils # (A) 7.4 k/uL (1.3-7.7); Neutrophils % (A) 76 %; Platelet Count 220 k/uL (150-450); Poikilocytosis Slight; RBC 2.63 m/uL (4.30-5.90); RDW 19.4 % (11.5-15.5); WBC 9.7 k/uL (3.8-10.6)
[2019-05-12 22:02] LABS: HGB 6.9 gm/dL (13.0-17.5)
[2019-05-12] MEDS: ALPRAZolam 0.25 MG TAB PO SCH (22:04)
[2019-05-12] MEDS: FUROSEMIDE 40 MG TAB PO SCH (22:05)
[2019-05-12] MEDS: SODIUM CHLORIDE 0.9% 1,000 ML IV SCH (22:06)
[2019-05-13] MEDS: traMADol 50 MG TAB PO SCH ×4 (01:43→21:04)
[2019-05-13] MEDS: ARTIFICIAL TEARS-HYPROMELLOSE DROPS 15 ML BTL BOTH EYES SCH ×3 (07:56→18:14)
[2019-05-13] MEDS: SENNOSIDES-DOCUSATE SODIUM 1 EACH TAB PO SCH ×2 (07:56→18:14)
[2019-05-13] MEDS: ALPRAZolam 0.25 MG TAB PO SCH ×3 (07:56→21:05)
[2019-05-13] MEDS: METOPROLOL TARTRATE 12.5 MG TAB PO SCH ×2 (07:56→18:14)
[2019-05-13] MEDS ORDERED: PANTOPRAZOLE 40 MG TABLET PO SCH (08:00)
[2019-05-13] MEDS: POTASSIUM CHLORIDE ER 20 MEQ TAB.ER PO SCH (08:01)
[2019-05-13] MEDS: FERROUS SULFATE 325 MG TAB PO SCH (08:01)
[2019-05-13] MEDS: BUMETANIDE 1 MG TAB PO SCH ×2 (08:03→18:13)
[2019-05-13] MEDS: FUROSEMIDE 40 MG TAB PO SCH (08:04)
[2019-05-13] MEDS: PANTOPRAZOLE 40 MG/10 ML VIAL IV SCH (08:04)
[2019-05-13] MEDS ORDERED: BUMETANIDE 1 MG TAB PO SCH (09:00)
[2019-05-13 09:28] LABS: Calcium 7.9 mg/dL (8.4-10.2); Potassium 4.1 mmol/L (3.5-5.1)
[2019-05-13 09:52] LABS: Anisocytosis Slight; HCT 27.1 % (39.0-53.0); HGB 7.9 gm/dL (13.0-17.5); Hypochromasia Marked; MCH 25.9 pg (25.0-35.0); MCHC 29.2 g/dL (31.0-37.0); MCV 88.6 fL (80.0-100.0); Mean Platelet Volume 11.3; Platelet Count 199 k/uL (150-450); Poikilocytosis Moderate; RBC 3.06 m/uL (4.30-5.90); RDW 19.1 % (11.5-15.5); WBC 9.4 k/uL (3.8-10.6)
[2019-05-13 11:11] LABS: Eosinophils # (M) 0.38 k/uL (0-0.7); Lymphocytes # (M) 0.38 k/uL (1.0-4.8); Monocytes # (M) 0.28 k/uL (0-1.0); Neutrophils # (M) 8.37 k/uL (1.3-7.7); Neutrophils % (M) 89 %; Nucleated Red Blood Cells 0 /100 WBC (0-0); Polychromasia Present; Total Cells Counted 100
[2019-05-13 11:12] LABS: Mixed Population RBC Present
[2019-05-13] MEDS ORDERED: MORPHINE ORAL SOLN 10 MG/5 ML CUP PO PRN (15:17)
--- NOTE | 2019-05-13 18:11 | HP ---
HISTORY AND PHYSICAL DATE OF SERVICE: 05/13/2019. CHIEF COMPLAINTS: Weakness, anemia, GI bleed. HISTORY OF PRESENT ILLNESS: This 69-year-old gentleman with a past medical history of multiple medical problems, including history of atrial fibrillation, history of hypertension, hyperlipidemia, history of myocardial infarction, history of mitral valve prolapse, history of closed head injury, being followed by Dr. Antoine in the outpatient setting, was recently evaluated in [facility] because of severe mitral regurgitation with a possible valvular leak also. The patient apparently was transitioned to hospice and was sent to [facility]. In [facility] the patient was noted to have tiredness and weakness, and the patient came to [facility], found to have anemia with hemoglobin 6.9. Two units of transfusion have been given. Patient was admitted for further evaluation and treatment. There is no history of any fever, rigor or chills. No history of headache, loss of consciousness, seizures. The patient had black stools and melena previously. Of note, the patient was evaluated previously at [facility] and had extensive workup, including a capsule endoscopy that showed possible AVMs in the small bowel. The patient also had polypectomy also. Please refer to the reports for further details. In any case, the patient is being transfused and Gastroenterology has been consulted. The patient also reports that he bleeds whenever he takes Eliquis, which was restarted at the time of recent discharge from [facility], apparently. PAST MEDICAL HISTORY: 1. History of atrial fibrillation. 2. History of hypertension. 3. Hyperlipidemia. 4. History of myocardial infarction. 5. GI bleed. 6. CAD, CABG, stent. HOME MEDICATIONS: 1. Ultram 25 mg p.o. b.i.d. 2. Senna 1 tablet p.o. b.i.d. 3. K-Dur 40 mEq p.o. b.i.d. 4. Artificial Teardrops. 5. MiraLAX 17 grams p.o. daily. 6. Protonix 40 mg p.o. daily. 7. Fleet enema. 8. Lopressor 12.5 mg p.o. b.i.d. 9. Milk of Magnesia. 10.Roxanol solution. 11.Levsin 0.125 mg q.4 hours p.r.n. 12.Iron gluconate 320 mg p.o. daily. 13.Bumex 3 mg p.o. b.i.d. 14.Dulcolax 10 mg daily p.r.n. 15.Tessalon Perles 100 mg p.o. t.i.d. p.r.n. 16.Ecotrin 81 mg p.o. daily. 17.Artificial Tears 1 drop both eyes t.i.d. 18.Eliquis 2.5 mg p.o. b.i.d. 19.Xanax 0.25 q.8 p.r.n. ALLERGIES: 1. LIPITOR. 2. DIGOXIN. 3. HEPARIN. 4. COUMADIN. 5. LISINOPRIL. FAMILY HISTORY: History of myocardial infarction in the family. SOCIAL HISTORY: Previous history of smoking. No current smoking or alcohol intake. REVIEW OF SYSTEMS: ENT: No diminished hearing. No diminished vision. CARDIOVASCULAR SYSTEM: No angina, palpitations. RESPIRATORY SYSTEM: No cough, hemoptysis. GI: As mentioned earlier. : No dysuria or retention. NERVOUS SYSTEM: No numbness, weakness. ALLERGY/IMMUNOLOGY: No asthma, hayfever. MUSCULOSKELETAL: As mentioned earlier. HEMATOLOGY/ONCOLOGY: As mentioned earlier. ENDOCRINE: No history of diabetes, hypothyroidism. CONSTITUTIONAL: As mentioned earlier. DERMATOLOGY: Negative. RHEUMATOLOGY: Negative. PSYCHIATRY: As mentioned earlier. PHYSICAL EXAMINATION: Patient alert and oriented x3. Pulse is 95, blood pressure 132/54, respiration 18, temperature 97.6, pulse ox 94% on 2 L. HEENT: Conjunctivae pale. Oral mucosa pale. NECK: Jugular venous distention elevated up to 10 cm. CARDIOVASCULAR SYSTEM: S1, S2 muffled. Ejection systolic murmur present. No S3. No S4. RESPIRATORY SYSTEM: Breath sounds diminished at the bases. A few scattered rhonchi and crackles. ABDOMEN: Soft, non-tender. No mass palpable. LEGS: No edema. No swelling. NERVOUS SYSTEM: Higher functions as mentioned earlier. Moves all 4 limbs. No focal motor or sensory deficit. LYMPHATICS: No lymph node palpable in neck, axillae or groin. SKIN: No ulcer, rash, bleeding. JOINTS: No active deforming arthropathy. LABS: Labs at this time show WBC 9.4, hemoglobin 7.9, sodium 131, potassium 4.4, creatinine 1.29. ASSESSMENT: 1. Acute gastrointestinal bleed with acute on chronic gastrointestinal bleed, possibly secondary to small intestine atriovenous malformation with acute blood loss anemia, status post transfusion, present on admission. 2. Hyponatremia. 3. Increased creatinine; chronic kidney stage III. 4. History of atrial fibrillation. 5. History of hypertension. 6. Hyperlipidemia. 7. On Xarelto. 8. History of myocardial infarction. 9. History of mitral valve prolapse. 10.History of closed-head injury. 11.History of intravascular hemolysis. 12.History of coronary artery disease, coronary artery bypass grafting, stent. 13.History of anxiety. RECOMMENDATIONS AND DISCUSSION: In this 69-year-old gentleman who presented with multiple complex medical issues, we will monitor the patient closely, continue the current medications, continue symptomatic treatment. Otherwise at this time I recommend continuing with transfusions. Monitor hemoglobin closely. Resume the home medications. DVT prophylaxis. Discussed with the patient about the CODE STATUS. As mentioned earlier, apparently the patient was on hospice, referred from [facility] to [facility], but the hospice was canceled. I discussed the prognosis, diagnosis and implications with the patient. At this time the patient would like to continue with FULL CODE at this time. The staff are aware. Once again, guarded prognosis. Further recommendations to follow. A copy of this dictation is being forwarded to Dr. Antoine, who is the primary physician. LAYLA / URSULA: [id number] / JENNIFER
[2019-05-13 18:31] LABS: Anisocytosis Slight; HCT 27.2 % (39.0-53.0); HGB 8.1 gm/dL (13.0-17.5); Hypochromasia Marked; MCH 26.4 pg (25.0-35.0); MCV 88.2 fL (80.0-100.0); Mean Platelet Volume 10.2; Platelet Count 200 k/uL (150-450); Poikilocytosis Moderate; RBC 3.08 m/uL (4.30-5.90); RDW 19.4 % (11.5-15.5)
[2019-05-13] MEDS: SODIUM CHLORIDE 0.9% 1,000 ML IV SCH (21:08)
[2019-05-14] MEDS: traMADol 50 MG TAB PO SCH ×5 (02:38→22:01)
[2019-05-14] MEDS: SODIUM CHLORIDE 0.9% 1,000 ML IV SCH (02:39)
[2019-05-14 08:16] LABS: Anisocytosis Slight; HGB 8.2 gm/dL (13.0-17.5); Hypochromasia Marked; MCH 25.9 pg (25.0-35.0); MCHC 29.2 g/dL (31.0-37.0); MCV 88.6 fL (80.0-100.0); Mean Platelet Volume 10.3; Platelet Count 220 k/uL (150-450); Poikilocytosis Moderate; RBC 3.16 m/uL (4.30-5.90); RDW 19.3 % (11.5-15.5); WBC 8.4 k/uL (3.8-10.6)
[2019-05-14] MEDS: FERROUS SULFATE 325 MG TAB PO SCH (08:23)
[2019-05-14] MEDS: METOPROLOL TARTRATE 12.5 MG TAB PO SCH ×2 (08:23→18:07)
[2019-05-14] MEDS: SENNOSIDES-DOCUSATE SODIUM 1 EACH TAB PO SCH ×2 (08:23→18:07)
[2019-05-14] MEDS: BUMETANIDE 1 MG TAB PO SCH ×2 (08:23→18:07)
[2019-05-14] MEDS: POTASSIUM CHLORIDE ER 20 MEQ TAB.ER PO SCH (08:23)
[2019-05-14] MEDS: ARTIFICIAL TEARS-HYPROMELLOSE DROPS 15 ML BTL BOTH EYES SCH ×3 (08:24→18:08)
[2019-05-14] MEDS: ALPRAZolam 0.25 MG TAB PO SCH ×3 (08:24→22:01)
[2019-05-14] MEDS: PANTOPRAZOLE 40 MG/10 ML VIAL IV SCH (08:25)
[2019-05-14 08:38] LABS: Calcium 7.9 mg/dL (8.4-10.2); Potassium 3.8 mmol/L (3.5-5.1)
--- NOTE | 2019-05-14 09:00 | P.CONS ---
History of Present Illness - Reason for Consult Consult date: 05/13/19 Anemia Requesting physician: Yudith Vicente - Chief Complaint Anemia - History of Present Illness 69-year-old male with medical comorbidities including atrial fibrillation, hypertension, hyperlipidemia, prior myocardial infarction, mitral valve prolapse who was recently evaluated at [facility] due to severe mitral regurgitation, however per the patient was not a candidate for intervention at that time and was sent to monitor was to be transition to hospice care. All at that facility the patient complained of tiredness and weakness and was found to be anemic with a hemoglobin of 6.9. On questioning the patient has had issues with anemia in the past. This was extensively worked up in the summer and fall of 2019 at [facility] with the patient reporting EGD, colonoscopy, video capsule endoscopy as well as multiple push enteroscopy's. Some reports have been able to be retrieved from [facility] with findings of polyps and nonbleeding AVM was noted. The patient reports a secondary to issues with his anemia anticoagulation therapy was held. However the patient had the anticoagulation restarted without his knowledge and subsequently was found to be anemic. He denies any signs or symptoms of GI bleed with no nausea, vomiting, hematemesis, coffee-ground emesis, change in bowel habits, blood per rectum or melanotic stool. Currently hemoglobin was found to 7.9 after transfusion. Patient has been tolerating his diet denies any abdominal pain. Review of Systems REVIEW OF SYSTEMS: CONSTITUTIONAL: Denies any fevers, chills, weight change or fatigue. CARDIOVASCULAR: Denies any chest pain, palpitations high or low blood pressures RESPIRATORY: Denies any shortness of breath, hemoptysis or cough. GENITOURINARY: No dysuria or hematuria. MUSCULOSKELETAL: No weakness reported. SKIN: Denies any new rashes or lesions, jaundice or pallor. PSYCHIATRIC: Denies any depression or anxiety. NEUROLOGY: Denies headache, denies any new focal deficits. EARS/NOSE/THROAT: No recent hearing change, congestion, nasal discharge or sore throat. EYES: No pain in eyes, discharge or change in vision. GASTROINTESTINAL: As per HPI. Past Medical History Past Medical History: Atrial Fibrillation, Chest Pain / Angina, Hyperlipidemia, Hypertension, Myocardial Infarction (OK), Mitral Valve Prolapse (MVP) Additional Past Medical History / Comment(s): hx closed head injury, mild he will lysis likely related to his mitral valve repair and ring placement causing intravascular hemolytic lysis. Was seen by hematology back in September 2013 hospitalization. CABG 08/27/2013. anemia Last Myocardial Infarction Date:: 2004 History of Any Multi-Drug Resistant Organisms: None Reported Past Surgical History: Coronary Bypass/CABG, Heart Catheterization With Stent, Tonsillectomy Additional Past Surgical History / Comment(s): mitral valve repair Past Anesthesia/Blood Transfusion Reactions: Previous Problems w/ Anesthesia Additional Past Anesthesia/Blood Transfusion Reaction / Comm: confusion and lost memory from anesthesia Date of Last Stent Placement:: 2004 Past Psychological History: Anxiety Smoking Status: Former smoker Past Alcohol Use History: None Reported Past Drug Use History: None Reported - Past Family History Father Family Medical History: Myocardial Infarction (OK) Additional Family Medical History / Comment(s): Father of a heart attack at age 55 Medications and Allergies Home Medications Medication Instructions Recorded Confirmed Type ALPRAZolam [Xanax] 0.25 mg PO Q8H PRN 12/11/17 05/12/19 History Aspirin EC [Ecotrin Low Dose] 81 mg PO DAILY@0800 12/11/17 05/12/19 History Potassium Chloride ER [K-Dur 20] 40 meq PO BID@0800,1700 12/11/17 05/12/19 History Apixaban [Eliquis] 2.5 mg PO BID@0800,1700 05/12/19 05/12/19 History Artificial Tears-Hypromellose 1 drop BOTH EYES TID@0800,1200,1700 05/12/19 05/12/19 History [Artificial Tear Drops] Benzonatate [Tessalon Perles] 100 mg PO TID PRN 05/12/19 05/12/19 History Bisacodyl [Dulcolax] 10 mg RECTAL DAILY PRN 05/12/19 05/12/19 History Bumetanide [Bumex] 3 mg PO BID 05/12/19 05/12/19 History Ferrous Gluconate 324 mg PO DAILY@0800 05/12/19 05/12/19 History Hyoscyamine Sulfate [Levsin] 0.125 mg PO Q4H PRN 05/12/19 05/12/19 History Ipratropium-Albuterol Nebulize 3 ml INHALATION RT-Q6H PRN 05/12/19 05/12/19 History [Duoneb 0.5 mg-3 mg/3 ml Soln] MORPHINE ORAL EMIL CONC 20mg/mL 5 mg PO Q4H PRN 05/12/19 05/12/19 History [Roxanol Oral Soln Conc 20MG/ML] Magnesium Hydroxide [Milk of 7,200 mg PO DAILY PRN 05/12/19 05/12/19 History Magnesia Concentrate] Metoprolol Tartrate [Lopressor] 12.5 mg PO BID@0800,1700 05/12/19 05/12/19 History Na Phos,M-B/Na Phos,Di-Ba [Fleet 133 ml RECTAL ONCE PRN 05/12/19 05/12/19 History Adult] Pantoprazole Sodium [Protonix] 40 mg PO DAILY@0800 05/12/19 05/12/19 History Polyethylene Glycol 3350 [Miralax] 17 gm PO DAILY PRN 05/12/19 05/12/19 History Polyvinyl Alcohol/Povidone [Clear 1 drop BOTH EYES Q2H PRN 05/12/19 05/12/19 History Eyes Natural Tears Drop] Sennosides/Docusate Sodium [La 1 tab PO BID@0800,1700 05/12/19 05/12/19 History Colace] traMADol HCL 25 mg PO QID@02,08,14,20 05/12/19 05/12/19 History Allergies Allergy/AdvReac Type Severity Reaction Status Date / Time atorvastatin Allergy Unknown Verified 05/12/19 18:06 digoxin Allergy Unknown Verified 05/12/19 18:06 heparin Allergy Unknown Verified 05/12/19 18:06 warfarin [From Coumadin] Allergy Unknown Verified 05/12/19 18:06 lisinopril AdvReac Intermediate Unknown Verified 05/12/19 18:06 Physical Exam Vitals: Vital Signs Temp Pulse Pulse Pulse Resp BP BP 05/13/19 12:12 97.9 F 76 18 117/65 05/13/19 05:40 97.6 F 95 18 132/54 05/13/19 03:19 97.7 F 96 18 94/57 05/13/19 00:51 97.7 F 87 18 102/59 05/13/19 00:21 97.5 F L 94 18 105/66 05/13/19 00:11 97.5 F L 93 18 110/66 05/12/19 22:09 97.8 F 98 20 116/53 05/12/19 19:09 97.5 F L 90 18 110/66 05/12/19 19:00 97.0 F L 96 18 116/63 05/12/19 17:53 97.0 F L 85 18 106/74 05/12/19 17:23 96.8 F L 85 18 112/53 05/12/19 17:13 97.0 F L 104 H 18 110/57 05/12/19 17:08 97.0 F L 92 18 111/66 05/12/19 14:57 97.0 F L 101 H 18 116/70 Pulse Ox 05/13/19 12:12 100 05/13/19 05:40 94 L 05/13/19 03:19 94 L 05/13/19 00:51 96 05/13/19 00:21 98 05/13/19 00:11 97 05/12/19 22:09 100 05/12/19 19:09 05/12/19 19:00 05/12/19 17:53 100 05/12/19 17:23 100 05/12/19 17:13 05/12/19 17:08 100 05/12/19 14:57 100 Intake and Output 05/12/19 05/13/19 05/13/19 22:59 06:59 14:59 Intake Total 310 550 960 Output Total 600 500 Balance 310 -50 460 Intake: Intake, IV Titration 240 Amount Sodium Chloride 0.9% 1, 240 000 ml @ 20 mls/hr IV . Q24H [facility] Rx#:[id number] Oral 960 Blood Product 310 310 As-1 Unit 310 [id number] As-3 Unit 310 [id number] Output: Urine 600 500 Other: Voiding Method Urinal # Voids 1 Weight 78.018 kg On physical examination, patient appears comfortable in no apparent distress. HEAD: Normocephalic, atraumatic. EYES: No scleral icterus. No conjunctival injection. MOUTH: No lesions, tongue midline. NECK: Trachea midline, no gross abnormalities. CHEST: Clear to auscultation with no wheezing or rhonchi appreciated. HEART: S1-S2 appreciated, irregularly irregular, murmur appreciated. ABDOMEN: Soft, obese. Bowel sounds are positive. No organomegaly. No guarding or rigidity. EXTREMITIES: No pedal edema. SKIN: No rashes, no jaundice. NEUROLOGIC: Alert and oriented x3. No focal deficits. Results CBC & Chem 7: 05/14/19 07:34 05/14/19 07:34 Labs: Abnormal Lab Results - Last 24 Hours (Table) 05/12/19 05/12/19 05/12/19 Range/Units 15:39 15:39 15:39 RBC 2.65 L (4.30-5.90) m/uL Hgb 6.9 L* (13.0-17.5) gm/dL Hct 22.9 L (39.0-53.0) % MCHC 30.3 L (31.0-37.0) g/dL RDW 20.6 H (11.5-15.5) % Neutrophils # (Manual) (1.3-7.7) k/uL Lymphocytes # 0.9 L (1.0-4.8) k/uL Lymphocytes # (Manual) (1.0-4.8) k/uL Sodium 130 L (137-145) mmol/L Chloride 97 L (98-107) mmol/L BUN 43 H (9-20) mg/dL Creatinine 1.34 H (0.66-1.25) mg/dL Glucose 116 H (74-99) mg/dL POC Glucose (mg/dL) (75-99) mg/dL Calcium 8.2 L (8.4-10.2) mg/dL Alkaline Phosphatase 231 H (38-126) U/L Albumin 2.9 L (3.5-5.0) g/dL Crossmatch See Detail 05/12/19 05/12/19 05/13/19 Range/Units 20:54 21:45 08:36 RBC 2.63 L 3.06 L (4.30-5.90) m/uL Hgb 6.9 L* 7.9 L (13.0-17.5) gm/dL Hct 23.6 L 27.1 L (39.0-53.0) % MCHC 29.4 L 29.2 L (31.0-37.0) g/dL RDW 19.4 H 19.1 H (11.5-15.5) % Neutrophils # (Manual) 8.37 H (1.3-7.7) k/uL Lymphocytes # (1.0-4.8) k/uL Lymphocytes # (Manual) 0.38 L (1.0-4.8) k/uL Sodium (137-145) mmol/L Chloride (98-107) mmol/L BUN (9-20) mg/dL Creatinine (0.66-1.25) mg/dL Glucose (74-99) mg/dL POC Glucose (mg/dL) 135 H (75-99) mg/dL Calcium (8.4-10.2) mg/dL Alkaline Phosphatase (38-126) U/L Albumin (3.5-5.0) g/dL Crossmatch 05/13/19 Range/Units 08:48 RBC (4.30-5.90) m/uL Hgb (13.0-17.5) gm/dL Hct (39.0-53.0) % MCHC (31.0-37.0) g/dL RDW (11.5-15.5) % Neutrophils # (Manual) (1.3-7.7) k/uL Lymphocytes # (1.0-4.8) k/uL Lymphocytes # (Manual) (1.0-4.8) k/uL Sodium 131 L (137-145) mmol/L Chloride (98-107) mmol/L BUN 40 H (9-20) mg/dL Creatinine 1.29 H (0.66-1.25) mg/dL Glucose 102 H (74-99) mg/dL POC Glucose (mg/dL) (75-99) mg/dL Calcium 7.9 L (8.4-10.2) mg/dL Alkaline Phosphatase (38-126) U/L Albumin (3.5-5.0) g/dL Crossmatch Assessment and Plan (1) GI bleed Narrative/Plan: 69-year-old male with multiple medical comorbidities who presented due to outpatient laboratory findings of anemia in the setting of anticoagulation therapy. The patient has an extensive cardiac history and was scheduled for valve repair at [facility] however was deemed not to be a candidate and was transitioned to more would where he was given the under hospice care. Was at this facility with the patient was found to be anemic after Eliquis was started on the patient. He has extensive history of anemia in the past while on anticoagulation therapy and reports numerous endoscopies including push enteroscopy, EGD, colonoscopy and video capsule endoscopy at [facility]. Some records were able to be obtained and suggestion is of possible small bowel AVMs. It is for this reason that the patient was not resumed on anticoagulation therapy, however at some point this was restarted without his knowledge and he was subsequently found to be anemic with a hemoglobin of 6.9, currently at 7.9 after transfusion. He denies any signs or symptoms of GI bleeding at this time. Current Visit: Yes Status: Acute Code(s): K92.2 - GASTROINTESTINAL HEMORRHAGE, UNSPECIFIED SNOMED Code(s): 46453351 (2) Anemia associated with acute blood loss Current Visit: Yes Status: Acute Code(s): D62 - ACUTE POSTHEMORRHAGIC ANEMIA SNOMED Code(s): 826889326 Plan: Supportive care Okay for diet Continue to monitor hemoglobin and hematocrit and transfuse as needed Continue to hold anticoagulation therapy Extensive discussion with the patient about his disease state and the risks, benefits and side effects of any endoscopic evaluation, at this time the patient wished to continue with conservative treatment given his extensive workup in the past and he would like to opt to hold anticoagulation and monitor hemoglobin and hematocrit with the idea of endoscopy only if he has any signs or symptoms of GI bleed or further fall in hemoglobin Thank you for allowing us to participate in the care of the patient, we will continue to follow
--- NOTE | 2019-05-14 16:12 | P.PN ---
Subjective Progress Note Date: 05/14/19 Principal diagnosis: Anemia associated with acute blood loss, GI bleed Patient is seen lying in bed reporting a tolerated advancement in his diet. No signs or symptoms of GI bleeding. No abdominal pain reported. Objective - Vital Signs Vital signs: Vital Signs Temp 97.4 F L 05/14/19 12:24 Pulse 90 05/14/19 12:24 Resp 17 05/14/19 12:24 BP 107/63 05/14/19 12:24 Pulse Ox 97 05/14/19 12:24 Intake & Output 05/13/19 05/14/19 05/14/19 18:59 06:59 18:59 Intake Total 960 810 600 Output Total 500 Balance 460 810 600 Intake: Intake, IV Titration 220 Amount Sodium Chloride 0.9% 1, 220 000 ml @ 20 mls/hr IV . Q24H [facility] Rx#:[id number] Oral 960 590 600 Output: Urine 500 Other: Voiding Method Urinal - Exam On physical examination, patient appears comfortable in no apparent distress. HEAD: Normocephalic, atraumatic. EYES: No scleral icterus. No conjunctival injection. MOUTH: No lesions, tongue midline. NECK: Trachea midline, no gross abnormalities significant JVD noted ABDOMEN: Soft, nontender to palpation. Bowel sounds are positive. No organomegaly. No guarding or rigidity. EXTREMITIES: No pedal edema. SKIN: No rashes, no jaundice. NEUROLOGIC: Alert and oriented x3. No focal deficits. - Labs CBC & Chem 7: 05/14/19 07:34 05/14/19 07:34 Labs: Abnormal Lab Results - Last 24 Hours (Table) 05/13/19 05/14/19 05/14/19 Range/Units 18:07 07:34 07:34 RBC 3.08 L 3.16 L (4.30-5.90) m/uL Hgb 8.1 L 8.2 L (13.0-17.5) gm/dL Hct 27.2 L 28.0 L (39.0-53.0) % MCHC 30.0 L 29.2 L (31.0-37.0) g/dL RDW 19.4 H 19.3 H (11.5-15.5) % Sodium 131 L (137-145) mmol/L BUN 38 H (9-20) mg/dL Calcium 7.9 L (8.4-10.2) mg/dL Assessment and Plan (1) GI bleed Narrative/Plan: 69-year-old male with multiple medical comorbidities who presented due to outpatient laboratory findings of anemia in the setting of anticoagulation therapy. The patient has an extensive cardiac history and was scheduled for valve repair at [facility] however was deemed not to be a candidate and was transitioned to [facility] where he was given the under hospice care. Was at this facility with the patient was found to be anemic after Eliquis was started on the patient. He has extensive history of anemia in the past while on anticoagulation therapy and reports numerous endoscopies including push enterosc opy, EGD, colonoscopy and video capsule endoscopy at [facility]. Some records were able to be obtained and suggestion is of possible small bowel AVMs. It is for this reason that the patient was not resumed on anticoagulation therapy, however at some point this was restarted without his knowledge and he was subsequently found to be anemic with a hemoglobin of 6.9, currently at 8.2 from 8.1 yesterday with no signs or symptoms of GI bleeding noted. Current Visit: Yes Status: Acute Code(s): K92.2 - GASTROINTESTINAL HEMORRHAGE, UNSPECIFIED SNOMED Code(s): 16063654 (2) Anemia associated with acute blood loss Current Visit: Yes Status: Acute Code(s): D62 - ACUTE POSTHEMORRHAGIC ANEMIA SNOMED Code(s): 488242763 Plan: Supportive care Okay for diet Continue to monitor hemoglobin and hematocrit and transfuse as needed Continue to hold anticoagulation therapy Extensive discussion with the patient about his disease state and the risks, benefits and side effects of any endoscopic evaluation, at this time the patient wished to continue with conservative treatment given his extensive workup in the past and he would like to opt to hold anticoagulation and monitor hemoglobin and hematocrit with the idea of endoscopy only if he has any signs or symptoms of GI bleed or further fall in hemoglobin Okay for discharge when otherwise medically stable Thank you for allowing us to participate in the care of the patient, the GI serv ice will stand by, please call us back any questions or concerns
--- NOTE | 2019-05-14 16:18 | CDI ---
Documentation Clarification Form Date: 05/14/2019 04:00:58 PM From: Lakesha Doshi RN, CCDS Admit Date: 05/12/2019 04:57:00 PM Patient Name: Joshua Lr Visit Number: [id number] Discharge Date: ATTENTION: The Clinical Documentation Specialists (CDI) and [facility] Coding Staff appreciate your assistance in clarifying documentation. Please respond to the clarification below the line at the bottom and electronically sign. The CDI & [facility] Coding staff will review the response and follow-up if needed. Please note: Queries are made part of the Legal Health Record. If you have any questions, please contact the author of this message via ITS. Dr. Yudith Vicente The EKD on admission to the ER on 05/12/19 is showing Atrial Fibrillation with vent rate 94 bpm. The patient past medical history also has atrial fibrillation and further specificity is indicated. History/Risk Factors: Atrial Fibrillation, Hypertension, GI bleed, Mitral valve prolapse, severe mitral regurgitation Clinical Indicators: 69-year-old male who present on 05/12/19 with complaints of weakness, found to have anemia with hemoglobin 6.9. 05/12/19 EKG/telemetry: Atrial Fibrillation at 94 bpm, ST & T wave abnormality, consider anterolateral ischemia Treatment: .9 % saline 1/L IV bolus, than @ 20 mls/hr IV Eliquis 2.5 mg PO BID (Home med now on Hold) In your professional opinion, can you please clarify the type of Atrial Fibrillation, if known? Chronic/Permanent Paroxysmal Persistent Other, please specify Unable to determine (Last Revision: July 2017) Persistent MTDD
--- NOTE | 2019-05-14 17:22 | PN ---
PROGRESS NOTE DATE OF SERVICE: 05/14/2019 This 69-year-old gentleman who was admitted with acute gastrointestinal bleed also had significant anemia blood-loss anemia. After transfusion, hemoglobin is 8.2. No active bleeding is noted at this time. Gastroenterology following the patient closely. Of note, the previous workup at [facility] showed at least 2 AVMs. The patient was restarted on Eliquis with problems of recurrent bleeding at this time. The patient also has been evaluated recently at [facility] possibly regarding significant perivalvular leak around the prosthetic mitral valve and as well as the tricuspid valve regurgitation and the patient is deemed not a candidate for surgery at this time. PAST MEDICAL HISTORY: Reviewed. REVIEW OF SYSTEMS: Cardiovascular: As mentioned earlier. Respiratory: As mentioned earlier. GI: As mentioned earlier. no dysuria. Nervous systems: No numbness or weakness. CURRENT MEDICATIONS: 1. Tylenol p.r.n. 2. DuoNeb q.i.d. and p.r.n. 3. Xanax 0.5 t.i.d. 4. Artificial tears. 5. Tessalon. 6. Dulcolax p.r.n. 7. Bumex 3 mg b.i.d. 8. Iron sulfate 320 mg p.o. daily. 9. Lopressor 12.5 mg p.o. b.i.d. 10.Morphine 5 mg q.4 p.r.n. 11.Zofran. 12.Protonix. 13.MiraLAX. 14.K-Dur 20 mEq. 15.Senokot-S 1 tablet p.o. b.i.d. 16.Ultram 25 mg p.o. q.i.d. PHYSICAL EXAM: Patient is alert, oriented x3. Pulse is 90. Blood pressure 107/67, respiration 17, temperature 97.4, pulse ox 97% on room air. HEENT: Conjunctivae normal. NECK is jugular venous distention at the root of the neck about 10 cm. CARDIOVASCULAR system: S1, S2 muffled. Ejection systolic murmur. No S3, no S4. RESPIRATORY: Breath sounds diminished in the bases. A few scattered rhonchi and crackles. ABDOMEN: Soft, nontender. No mass palpable. LEGS: No edema. No swelling. CENTRAL NERVOUS SYSTEM: No focal deficits. LABS: WBC 8.3, hemoglobin is 8.2, sodium 131. ASSESSMENT: 1. Acute gastrointestinal bleed with acute on chronic gastrointestinal bleed, possibly secondary to small intestinal arteriovenous malformation with acute blood loss anemia status post transfusion, present on admission. 2. Hyponatremia. 3. Increased creatinine with chronic kidney stage III. 4. History of atrial fibrillation chronic. 5. Hypertension. 6. Hyperlipidemia. 7. On Xarelto previously. 8. History of myocardial infarction. 9. History of mitral valve prolapse. 10.History of closed-head injury. 11.History of intravascular hemolysis. 12.History of coronary artery bypass grafting/coronary artery disease stent. 13.History of anxiety. 14.FULL CODE. RECOMMENDATIONS AND DISCUSSION: This 69-year-old gentleman who presented with multiple complex medical issues, we will monitor the patient closely. Continue the current medications, management and symptomatic treatment. Otherwise, avoid antiplatelet agents as well as Eliquis. Otherwise, repeat hemoglobin. Increase ambulation. Continue the rest of medications. PT/OT evaluation. Overall prognosis extremely guarded because of multiple complex medical issues. Follow closely with Gastroenterology. Gastroenterology does not seem to be planning any active investigations at this time because of the patient's recent past medical history. Prognosis guarded. Further medications to follow. MMODL / IJN: [id number] /
[2019-05-14] MEDS: BENZONATATE 100 MG CAP PO PRN (22:01)
[2019-05-15] MEDS: traMADol 50 MG TAB PO SCH ×4 (03:25→20:30)
[2019-05-15 08:08] LABS: Anisocytosis Moderate; HCT 26.1 % (39.0-53.0); HGB 7.8 gm/dL (13.0-17.5); Hypochromasia Marked; MCH 26.4 pg (25.0-35.0); MCHC 29.9 g/dL (31.0-37.0); MCV 88.4 fL (80.0-100.0); Mean Platelet Volume 9.9; Platelet Count 193 k/uL (150-450); Poikilocytosis Moderate; RBC 2.95 m/uL (4.30-5.90); WBC 8.1 k/uL (3.8-10.6)
[2019-05-15 08:15] LABS: Calcium 7.8 mg/dL (8.4-10.2); Potassium 3.7 mmol/L (3.5-5.1)
[2019-05-15] MEDS: PANTOPRAZOLE 40 MG/10 ML VIAL IV SCH (09:30)
[2019-05-15] MEDS: METOPROLOL TARTRATE 12.5 MG TAB PO SCH (09:31)
[2019-05-15] MEDS: SENNOSIDES-DOCUSATE SODIUM 1 EACH TAB PO SCH ×2 (09:32→16:16)
[2019-05-15] MEDS: ALPRAZolam 0.25 MG TAB PO SCH ×3 (09:32→20:30)
[2019-05-15] MEDS: FERROUS SULFATE 325 MG TAB PO SCH (09:32)
[2019-05-15] MEDS: POTASSIUM CHLORIDE ER 20 MEQ TAB.ER PO SCH (09:32)
[2019-05-15] MEDS: BUMETANIDE 1 MG TAB PO SCH ×2 (09:33→16:16)
[2019-05-15] MEDS: ARTIFICIAL TEARS-HYPROMELLOSE DROPS 15 ML BTL BOTH EYES SCH ×3 (09:35→15:38)
--- NOTE | 2019-05-15 15:04 | PN ---
PROGRESS NOTE DATE OF SERVICE: 05/15/2019 This 69-year-old gentleman admitted with acute GI bleed is being closely monitored at this time. The patient had AVMs diagnosed previously in [facility]. The patient has complained of tiredness and weakness. The patient ascribes that to Lopressor and is requesting atenolol 50 mg daily, which the patient was apparently on previously and doing well. Past medical history reviewed. PHYSICAL EXAMINATION: Patient is alert and oriented x3. Pulse 72, blood pressure 97/60, respiration 16, temperature 98.4, pulse ox 97% on room air. HEENT: Conjunctivae normal. NECK: No jugular venous distention. CARDIOVASCULAR SYSTEM: S1, S2 muffled. Ejection systolic and pansystolic murmur present. RESPIRATORY SYSTEM: Breath sounds diminished at the bases. No rhonchi. No crackles. ABDOMEN: Soft, non-tender. LEGS: No edema. No swelling. NERVOUS SYSTEM: No focal deficit. LABS: WBC 8.1, hemoglobin 7.8, sodium 131. ASSESSMENT: 1. Acute gastrointestinal bleed with acute on chronic blood-loss anemia, possibly secondary to small intestinal AVMs with acute blood loss anemia, status post transfusion, present on admission. 2. Hyponatremia. 3. Increased creatinine with chronic kidney disease, stage III. 4. History of atrial fibrillation, chronic. 5. Hypertension. 6. Hyperlipidemia. 7. On Xarelto previously. 8. History of myocardial infarction. 9. History of mitral valve prolapse. 10.History of closed-head injury. 11.History intravascular hemolysis. 12.History of coronary artery disease, coronary artery bypass grafting, stent. 13.History of anxiety. 14.FULL CODE. RECOMMENDATIONS AND DISCUSSION: I recommend to continue current medications, continue with the monitoring, symptomatic treatment. Otherwise at this time I would recommend repeat hemoglobin. I would also recommend repeat electrolyte and adjust medications. Start atenolol 50 mg p.o. daily and hold if the systolic pressure is less than 100. Continue to monitor. Continue the rest of the medications. Further recommendations to follow. Prognosis guarded. MMODL / RASHIDN: [id number] /
[2019-05-16] MEDS: traMADol 50 MG TAB PO SCH ×4 (00:57→19:55)
[2019-05-16 07:40] LABS: Calcium 7.8 mg/dL (8.4-10.2); Potassium 3.8 mmol/L (3.5-5.1)
[2019-05-16 08:55] LABS: Anisocytosis Slight; HCT 27.9 % (39.0-53.0); Hypochromasia Marked; MCH 25.8 pg (25.0-35.0); MCHC 28.6 g/dL (31.0-37.0); MCV 90.1 fL (80.0-100.0); Mean Platelet Volume 10.6; Platelet Count 223 k/uL (150-450); Poikilocytosis Moderate; WBC 7.1 k/uL (3.8-10.6)
[2019-05-16] MEDS ORDERED: ATENOLOL 50 MG TAB PO SCH (09:00)
[2019-05-16 09:29] LABS: Basophils # (M) 0.07 k/uL (0-0.2); Eosinophils # (M) 0.43 k/uL (0-0.7); Large Platelets Present; Lymphocytes # (M) 0.36 k/uL (1.0-4.8); Metamyelocytes # (M) 0.07 k/uL (0); Metamyelocytes % 1 %; Monocytes # (M) 0.28 k/uL (0-1.0); Neutrophils # (M) 5.96 k/uL (1.3-7.7); Neutrophils % (M) 84 %; Nucleated Red Blood Cells 0 /100 WBC (0-0); Total Cells Counted 200
[2019-05-16] MEDS: POTASSIUM CHLORIDE ER 20 MEQ TAB.ER PO SCH (09:36)
[2019-05-16] MEDS: FERROUS SULFATE 325 MG TAB PO SCH (09:36)
[2019-05-16] MEDS: BUMETANIDE 1 MG TAB PO SCH ×2 (09:36→17:30)
[2019-05-16] MEDS: ARTIFICIAL TEARS-HYPROMELLOSE DROPS 15 ML BTL BOTH EYES SCH ×3 (09:37→17:43)
[2019-05-16] MEDS: SENNOSIDES-DOCUSATE SODIUM 1 EACH TAB PO SCH ×2 (09:37→17:30)
[2019-05-16] MEDS: PANTOPRAZOLE 40 MG/10 ML VIAL IV SCH (09:38)
[2019-05-16] MEDS: ALPRAZolam 0.25 MG TAB PO SCH ×2 (09:38→15:22)
[2019-05-16] MEDS: BENZONATATE 100 MG CAP PO PRN (17:42)
[2019-05-16] MEDS ORDERED: ALPRAZolam 0.25 MG TAB PO PRN (17:56)
--- NOTE | 2019-05-16 20:07 | PN ---
PROGRESS NOTE DATE OF SERVICE: 05/16/2019 This 65-year-old gentleman with GI bleed previously diagnosed AVMs. No chest pain. No palpitations. The patient was on Eliquis previously which was withheld. caused more bleeding in which the patient is not keen on taking at this point. The patient was previously on aspirin and Plavix. No chest pain. No palpitations. No fever. No obvious bleeding is noted. EXAM: Alert and oriented times three. Pulse is 105. blood pressure 120/70, respirations 16, temperature 97.4, pulse ox 98% on room air. HEENT is conjunctivae normal. NECK: No JVD. CARDIOVASCULAR: S1, S2 muffled. RESPIRATORY SYSTEM: Breath sounds diminished at the bases. No rhonchi and no crackles. CARDIOVASCULAR: Ejection systolic murmur with pansystolic murmur present. ABDOMEN: Soft, nontender. Nervous System: No focal deficits. LABS: Hemoglobin 8 and sodium 133. Other labs are noted. ASSESSMENT: 1. 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 2. Hyponatremia. 3. Increased creatinine with chronic kidney disease stage 3. 4. history of atrial fibrillation chronic. 5. Hypertension. 6. Hyperlipidemia. 7. On Xarelto previously. 8. History of myocardial infarction. 9. History of mitral valve prolapse. 10.History of closed-head injury. 11.History of intravascular hemolysis. 12.History of coronary artery disease, coronary artery bypass grafting, stent. 13.History of anxiety. 14.FULL CODE. RECOMMENDATIONS AND DISCUSSION: In This 69-year-old gentleman who presented with multiple complex medical issues, we will monitor the patient closely, continue the current medications, management and symptomatic treatment. Otherwise, we will monitor hemoglobin closely. Patient also received 2 units transfusion. Repeat labs have been ordered. Prognosis guarded because of multiple complex medical issues. Further recommendations to follow. MMODL / IJN: [id number] / MTDD
[2019-05-17] MEDS: traMADol 50 MG TAB PO SCH ×3 (02:01→13:36)
[2019-05-17 05:49] VITALS: BP 107/54; PULSE 107; RESP 20; TEMP 97.5
[2019-05-17] MEDS: SENNOSIDES-DOCUSATE SODIUM 1 EACH TAB PO SCH (08:04)
[2019-05-17] MEDS: FERROUS SULFATE 325 MG TAB PO SCH (08:04)
[2019-05-17] MEDS: BENZONATATE 100 MG CAP PO PRN (08:04)
[2019-05-17] MEDS: POTASSIUM CHLORIDE ER 20 MEQ TAB.ER PO SCH (08:04)
[2019-05-17] MEDS: ARTIFICIAL TEARS-HYPROMELLOSE DROPS 15 ML BTL BOTH EYES SCH ×2 (08:04→12:17)
[2019-05-17] MEDS: BUMETANIDE 1 MG TAB PO SCH (08:05)
[2019-05-17] MEDS: PANTOPRAZOLE 40 MG/10 ML VIAL IV SCH (08:06)
[2019-05-17 08:37] LABS: Anisocytosis Slight; Basophils % (A) 1 %; Eosinophils # (A) 0.4 k/uL (0-0.7); Eosinophils % (A) 6 %; HCT 28.7 % (39.0-53.0); HGB 8.4 gm/dL (13.0-17.5); Hypochromasia Marked; Lymphocytes # (A) 0.8 k/uL (1.0-4.8); Lymphocytes % (A) 12 %; MCH 26.5 pg (25.0-35.0); MCHC 29.4 g/dL (31.0-37.0); MCV 90.1 fL (80.0-100.0); Mean Platelet Volume 9.7; Monocytes # (A) 0.4 k/uL (0-1.0); Monocytes % (A) 6 %; Neutrophils # (A) 4.9 k/uL (1.3-7.7); Neutrophils % (A) 73 %; Platelet Count 182 k/uL (150-450); Poikilocytosis Moderate; RBC 3.19 m/uL (4.30-5.90); RDW 19.7 % (11.5-15.5); WBC 6.7 k/uL (3.8-10.6)
[2019-05-17] MEDS ORDERED: ATENOLOL 12.5 MG TAB PO SCH (09:00)
[2019-05-17 09:11] LABS: Polychromasia Present
--- NOTE | 2019-05-17 11:27 | P.DS ---
Providers Date of admission: 05/12/19 16:57 Expected date of discharge: 05/17/19 Attending physician: Yudith Vicente Primary care physician: Charles Antoine [facility] Course: Final diagnosis Acute gastrointestinal bleed with acute on chronic blood loss anemia hospital secondary to small intestinal AVMs and acute blood loss anemia status post 2 transfusions, present on admission Hyponatremia Increased creatinine with chronic kidney disease stage III History of atrial fibrillation chronic Hypertension Hyperlipidemia On Xarelto previously History of myocardial infarction History of mitral valve prolapse History of closed head injury History of intravascular hemolysis history of coronary disease, coronary artery bypass grafting, stents history of anxiety Discharge disposition Patient is being discharged in a stable condition with guarded prognosis to [facility]. Patient will continue to hold eliquis and aspirin in the outpatient setting until follow-up with primary care provider Dr. Charles Antoine. Total time taken is 35 minutes. History of present illness This is a 65-year-old male who was recently admitted for GI bleed and was previously diagnosed with AVMs and is being monitored closely. Patient was on Eliquis which is being held upon discharge. During hospitalization patient received 2 IV transfusions of PRBCs and current hemoglobin today is 8.4. Patient will also be holding aspirin upon discharge until follow-up with primary care provider with the possibility of discussing resuming aspirin in 2 weeks. Patient was evaluated by GI during hospitalization recommending conservative treatment and monitoring hemoglobin. Currently patient's condition is stable and is ready for discharge to [facility] as he currently resides there. Patient denies any chest pain, shortness of breath, or palpitations. Patient is afebrile. Patient denies any nausea or vomiting and has been tolerating diet. No active bleeding noted. Guarded prognosis. On exam vital signs are stable. Temp is 97.5F, pulse is 107, respirations are 20, blood pressure is 107/54, oxygen saturation is 97% on room air. Cardio S1, S2 muffled. Respiratory shows diminished breath sounds at the bases otherwise no rhonchi, crackles, or wheezing noted. Abdomen is soft and nontender. Nervous system shows no focal deficits. Please refer to medication reconciliation sheet for a list of medications. Patient Condition at Discharge: Stable Plan - Discharge Summary Discharge Rx Participant: No New Discharge Prescriptions: New Potassium Chloride ER [K-Dur 20] 20 meq PO DAILY tab.er.prt Continue ALPRAZolam [Xanax] 0.25 mg PO Q8H PRN PRN Reason: Anxiety Polyvinyl Alcohol/Povidone [Clear Eyes Natural Tears Drop] 1 drop BOTH EYES Q2H PRN PRN Reason: Dry Eye(S) Polyethylene Glycol 3350 [Miralax] 17 gm PO DAILY PRN PRN Reason: Constipation MORPHINE ORAL EMIL CONC 20mg/mL [Roxanol Oral Soln Conc 20MG/ML] 5 mg PO Q4H PRN PRN Reason: Pain Magnesium Hydroxide [Milk of Magnesia Concentrate] 7,200 mg PO DAILY PRN PRN Reason: Constipation Ipratropium-Albuterol Nebulize [Duoneb 0.5 mg-3 mg/3 ml Soln] 3 ml INHALATION RT-Q6H PRN PRN Reason: Shortness Of Breath/WHEEZING Hyoscyamine Sulfate [Levsin] 0.125 mg PO Q4H PRN PRN Reason: STOMACH CRAMPING Na Phos,M-B/Na Phos,Di-Ba [Fleet Adult] 133 ml RECTAL ONCE PRN PRN Reason: Constipation Bisacodyl [Dulcolax] 10 mg RECTAL DAILY PRN PRN Reason: Constipation Benzonatate [Tessalon Perles] 100 mg PO TID PRN PRN Reason: Cough traMADol HCL 25 mg PO QID@02,08,14,20 Sennosides/Docusate Sodium [La Colace] 1 tab PO BID@0800,1700 Artificial Tears-Hypromellose [Artificial Tear Drops] 1 drop BOTH EYES TID@ 0800,1200,1700 Metoprolol Tartrate [Lopressor] 12.5 mg PO BID@0800,1700 Pantoprazole Sodium [Protonix] 40 mg PO DAILY@0800 Ferrous Gluconate 324 mg PO DAILY@0800 Bumetanide [BUMEX] 3 mg PO BID Discontinued Potassium Chloride ER [K-Dur 20] 40 meq PO BID@0800,1700 Aspirin EC [Ecotrin Low Dose] 81 mg PO DAILY@0800 Apixaban [Eliquis] 2.5 mg PO BID@0800,1700 Discharge Medication List ALPRAZolam [Xanax] 0.25 mg PO Q8H PRN 12/11/17 [History] Artificial Tears-Hypromellose [Artificial Tear Drops] 1 drop BOTH EYES TID@0800,1200,1700 05/12/19 [History] Benzonatate [Tessalon Perles] 100 mg PO TID PRN 05/12/19 [History] Bisacodyl [Dulcolax] 10 mg RECTAL DAILY PRN 05/12/19 [History] Bumetanide [BUMEX] 3 mg PO BID 05/12/19 [History] Ferrous Gluconate 324 mg PO DAILY@0800 05/12/19 [History] Hyoscyamine Sulfate [Levsin] 0.125 mg PO Q4H PRN 05/12/19 [History] Ipratropium-Albuterol Nebulize [Duoneb 0.5 mg-3 mg/3 ml Soln] 3 ml INHALATION RT-Q6H PRN 05/12/19 [History] MORPHINE ORAL EMIL CONC 20mg/mL [Roxanol Oral Soln Conc 20MG/ML] 5 mg PO Q4H PRN 05/12/19 [History] Magnesium Hydroxide [Milk of Magnesia Concentrate] 7,200 mg PO DAILY PRN 05/12/19 [History] Metoprolol Tartrate [Lopressor] 12.5 mg PO BID@0800,1700 05/12/19 [History] Na Phos,M-B/Na Phos,Di-Ba [Fleet Adult] 133 ml RECTAL ONCE PRN 05/12/19 [History] Pantoprazole Sodium [Protonix] 40 mg PO DAILY@0800 05/12/19 [History] Polyethylene Glycol 3350 [Miralax] 17 gm PO DAILY PRN 05/12/19 [History] Polyvinyl Alcohol/Povidone [Clear Eyes Natural Tears Drop] 1 drop BOTH EYES Q2H PRN 05/12/19 [History] Sennosides/Docusate Sodium [La Colace] 1 tab PO BID@0800,1700 05/12/19 [History] traMADol HCL 25 mg PO QID@02,08,14,20 05/12/19 [History] Potassium Chloride ER [K-Dur 20] 20 meq PO DAILY tab.er.prt 05/17/19 [Rx] Follow up Appointment(s)/Referral(s): Charles Antoine MD [Primary Care Provider] - 1-2 days Activity/Diet/Wound Care/Special Instructions: Patient is returning to [facility] Continue current diet Follow-up with primary care provider upon discharge Continue to hold Eliquis and aspirin with the possibility of resuming aspirin in 2 weeks if no further bleeding and after follow-up Activity as tolerated Discharge Disposition: TRANSFER TO SNF/ECF
== END 2019-05-17 16:11 ==
LOC: EC 14:54 → 5NMEDONC 16:57 → INTOOBSV 16:57 → 5NMEDONC 19:06 → UNDODISIN 05-17 16:11
PROVIDERS: ADMIT Hospitalist; ATTEND Hospitalist
DX: K55.21 Angiodysplasia of colon with hemorrhage (principal); D62 Acute posthemorrhagic anemia; E87.1 Hypo-osmolality and hyponatremia; N18.3 Chronic kidney disease, stage 3 (moderate); I12.9 Hypertensive chronic kidney disease with stage 1 through stage 4 chronic kidney disease, or unspecified chronic kidney disease; I48.19 Other persistent atrial fibrillation; E78.5 Hyperlipidemia, unspecified; I25.2 Old myocardial infarction; F41.9 Anxiety disorder, unspecified; I34.0 Nonrheumatic mitral (valve) insufficiency; I25.10 Atherosclerotic heart disease of native coronary artery without angina pectoris; Z86.79 Personal history of other diseases of the circulatory system; Z87.820 Personal history of traumatic brain injury; Z95.1 Presence of aortocoronary bypass graft; Z95.5 Presence of coronary angioplasty implant and graft; Z86.2 Personal history of diseases of the blood and blood-forming organs and certain disorders involving the immune mechanism; Z79.899 Other long term (current) drug therapy; Z79.82 Long term (current) use of aspirin; Z88.8 Allergy status to other drugs, medicaments and biological substances; Z90.89 Acquired absence of other organs; Z98.890 Other specified postprocedural states; Z91.89 Other specified personal risk factors, not elsewhere classified; Z87.891 Personal history of nicotine dependence; Z79.01 Long term (current) use of anticoagulants; Z86.010 Personal history of colon polyps; Z82.49 Family history of ischemic heart disease and other diseases of the circulatory system
CPT/HCPCS: 96376; 96374; 36430; 96361; 99285; 36415 ×2; 93005; 86900; 86901; 80053; 80048 ×4; 83605; 83690; 83735; 84443; 85025 ×4; 85027 ×4; 85730; 86850; 86920; 82272; 83036; G0378 ×6; P9016 ×2; C9113 ×2; 96360

== ENCOUNTER 2019-05-27 15:04 | Inpatient (IN) | payer MEDICAID, MEDICARE, OTHER ==
[2019-05-27] MEDS ORDERED: FUROSEMIDE 10 MG/ML 4 ML VIAL IV STA (15:37)
--- NOTE | 2019-05-27 15:45 | ED ---
General Adult HPI - General Chief complaint: GI Bleed Stated complaint: Weakness Time Seen by Provider: 05/27/19 15:14 Source: EMS Mode of arrival: EMS Limitations: no limitations - History of Present Illness Initial comments: Dictation was produced using [employer] dictation software. please excuse any grammatical, word or spelling errors. Chief Complaint: 69-year-old male brought in from the long term for hospice care. History of Present Illness: 69-year-old male used transferred by EMS for hospice care. Patient is a current resident [facility]. Patient is allegedly hospice. Past medical history of heart failure GI bleed. Her last couple days patient has been feeling weak. States that he short of breath and retaining fluid a lip into his abdomen. Patient does have a history of heart failure. Patient is a poor historian. Hospice nurse at bedside came to the emergency department with patient. She allegedly spoke with hospitalist team that patient was given a be coming to the emergency department to be admitted for comfort measures. The ROS documented in this emergency department record has been reviewed and confirmed by me. Those systems with pertinent positive or negative responses have been documented in the HPI. All other systems are other negative and/or noncontributory. PHYSICAL EXAM: General Impression: Alert and oriented x3, not in acute distress HEENT: Normocephalic atraumatic, extra-ocular movements intact, pupils equal and reactive to light bilaterally, pale Cardiovascular: Heart regular rate and rhythm, S1&S2 audible, no murmurs, rubs or gallops Chest: Lungs clear to auscultation bilaterally, no rhonchi, no wheeze, no rales Abdomen: Bowel sounds present, abdomen soft, non-tender, non-distended, no organomegaly Musculoskeletal: Pulses present and equal in all extremities, that her lower extremity lymphedema, induration with pitting edema as well extending to the lower abdomen Motor: no focal deficits noted Neurological: CN II-XII grossly intact, no focal motor or sensory deficits noted Skin: Intact with no visualized rashes Rectal exam: No signs of bleeding, no gross blood ED course: 69-year-old male multiple comorbidities transferred to emergency department for hospice care. She does not appear to be any significant acute distress at this time. As upon arrival shows heart rate of 11 cumbersome vital signs within acceptable limits. Patient given Lasix for fluid overload. Laboratory evaluation obtained. CBC shows hemoglobin 8.9. This appears to be above patient's baseline. Coag panel unremarkable. Metabolic panel is negative, there is elevated brain natriuretid peptide of 4000. X-ray suggests congestive heart failure. Clinical presentation consistent with acute, severe heart failure. Patient be admitted for symptom control, gentle diuresis is currently a hospice patient. Hospice nurse at bedside reports no aggressive interventions, no CPR or intubation. - Related Data Home Medications Medication Instructions Recorded Confirmed ALPRAZolam [Xanax] 0.25 mg PO Q8H PRN 12/11/17 05/12/19 Artificial Tears-Hypromellose 1 drop BOTH EYES TID@0800,1200,1700 05/12/19 05/12/19 [Artificial Tear Drops] Benzonatate [Tessalon Perles] 100 mg PO TID PRN 05/12/19 05/12/19 Bisacodyl [Dulcolax] 10 mg RECTAL DAILY PRN 05/12/19 05/12/19 Bumetanide [BUMEX] 3 mg PO BID 05/12/19 05/12/19 Ferrous Gluconate 324 mg PO DAILY@0800 05/12/19 05/12/19 Hyoscyamine Sulfate [Levsin] 0.125 mg PO Q4H PRN 05/12/19 05/12/19 Ipratropium-Albuterol Nebulize 3 ml INHALATION RT-Q6H PRN 05/12/19 05/12/19 [Duoneb 0.5 mg-3 mg/3 ml Soln] MORPHINE ORAL EMIL CONC 20mg/mL 5 mg PO Q4H PRN 05/12/19 05/12/19 [Roxanol Oral Soln Conc 20MG/ML] Magnesium Hydroxide [Milk of 7,200 mg PO DAILY PRN 05/12/19 05/12/19 Magnesia Concentrate] Metoprolol Tartrate [Lopressor] 12.5 mg PO BID@0800,1700 05/12/19 05/12/19 Na Phos,M-B/Na Phos,Di-Ba [Fleet 133 ml RECTAL ONCE PRN 05/12/19 05/12/19 Adult] Pantoprazole Sodium [Protonix] 40 mg PO DAILY@0800 05/12/19 05/12/19 Polyethylene Glycol 3350 [Miralax] 17 gm PO DAILY PRN 05/12/19 05/12/19 Polyvinyl Alcohol/Povidone [Clear 1 drop BOTH EYES Q2H PRN 05/12/19 05/12/19 Eyes Natural Tears Drop] Sennosides/Docusate Sodium [La 1 tab PO BID@0800,1700 05/12/19 05/12/19 Colace] traMADol HCL 25 mg PO QID@02,08,14,20 05/12/19 05/12/19 Previous Rx's Medication Instructions Recorded Potassium Chloride ER [K-Dur 20] 20 meq PO DAILY tab.er.prt 05/17/19 Allergies Allergy/AdvReac Type Severity Reaction Status Date / Time atorvastatin Allergy Unknown Verified 05/12/19 18:06 digoxin Allergy Unknown Verified 05/12/19 18:06 heparin Allergy Unknown Verified 05/12/19 18:06 warfarin [From Coumadin] Allergy Unknown Verified 05/12/19 18:06 lisinopril AdvReac Intermediate Unknown Verified 05/12/19 18:06 Review of Systems ROS Statement: Those systems with pertinent positive or pertinent negative responses have been documented in the HPI. ROS Other: All systems not noted in ROS Statement are negative. Past Medical History Past Medical History: Atrial Fibrillation, Chest Pain / Angina, Hyperlipidemia, Hypertension, Myocardial Infarction ([place]), Mitral Valve Prolapse (MVP) Additional Past Medical History / Comment(s): hx closed head injury, mild he will lysis likely related to his mitral valve repair and ring placement causing intravascular hemolytic lysis. Was seen by hematology back in September 2013 hospitalization. CABG 08/27/2013. anemia Last Myocardial Infarction Date:: 2004 History of Any Multi-Drug Resistant Organisms: None Reported Past Surgical History: Coronary Bypass/CABG, Heart Catheterization With Stent, Tonsillectomy Additional Past Surgical History / Comment(s): mitral valve repair Past Anesthesia/Blood Transfusion Reactions: Previous Problems w/ Anesthesia Additional Past Anesthesia/Blood Transfusion Reaction / Comment(s): confusion and lost memory from anesthesia Date of Last Stent Placement:: 2004 Past Psychological History: Anxiety Smoking Status: Former smoker Past Alcohol Use History: None Reported Past Drug Use History: None Reported - Past Family History Father Family Medical History: Myocardial Infarction ([place]) Additional Family Medical History / Comment(s): Father of a heart attack at age 55 General Exam Limitations: no limitations Course Vital Signs 05/27/19 15:11 Temperature 98.5 F Pulse Rate 101 H Respiratory 24 Rate Blood Pressure 116/71 O2 Sat by Pulse 95 Oximetry Medical Decision Making - Lab Data Result diagrams: 05/27/19 15:09 05/27/19 15:09 Lab Results 05/27/19 05/27/19 05/27/19 Range/Units 15:09 15:09 15:09 WBC 6.7 (3.8-10.6) k/uL RBC 3.40 L (4.30-5.90) m/uL Hgb 8.9 L (13.0-17.5) gm/dL Hct 30.4 L (39.0-53.0) % MCV 89.3 (80.0-100.0) fL MCH 26.2 (25.0-35.0) pg MCHC 29.3 L (31.0-37.0) g/dL RDW 17.8 H (11.5-15.5) % Plt Count 258 (150-450) k/uL Neutrophils % 75 % Lymphocytes % 11 % Monocytes % 6 % Eosinophils % 4 % Basophils % 1 % Neutrophils # 5.0 (1.3-7.7) k/uL Lymphocytes # 0.8 L (1.0-4.8) k/uL Monocytes # 0.4 (0-1.0) k/uL Eosinophils # 0.3 (0-0.7) k/uL Basophils # 0.1 (0-0.2) k/uL Hypochromasia Marked Poikilocytosis Moderate Anisocytosis Slight PT (9.0-12.0) sec INR (<1.2) APTT (22.0-30.0) sec Sodium 131 L (137-145) mmol/L Potassium 3.9 (3.5-5.1) mmol/L Chloride 99 (98-107) mmol/L Carbon Dioxide 24 (22-30) mmol/L Anion Gap 8 mmol/L BUN 35 H (9-20) mg/dL Creatinine 1.34 H (0.66-1.25) mg/dL Est GFR (CKD-EPI)AfAm 63 (>60 ml/min/1.73 sqM) Est GFR (CKD-EPI)NonAf 55 (>60 ml/min/1.73 sqM) Glucose 101 H (74-99) mg/dL Plasma Lactic Acid Angel (0.7-2.0) mmol/L Calcium 8.1 L (8.4-10.2) mg/dL Magnesium 2.0 (1.6-2.3) mg/dL NT-Pro-B Natriuret Pep pg/mL Stool Occult Blood (Negative) Blood Type A Positive Blood Type Recheck A Pos Bld Type Recheck Status No Antibody Screen NEGATIVE Spec Expiration Date 05/30/2019230805/27/19 05/27/19 05/27/19 Range/Units 15:09 15:09 15:09 WBC (3.8-10.6) k/uL RBC (4.30-5.90) m/uL Hgb (13.0-17.5) gm/dL Hct (39.0-53.0) % MCV (80.0-100.0) fL MCH (25.0-35.0) pg MCHC (31.0-37.0) g/dL RDW (11.5-15.5) % Plt Count (150-450) k/uL Neutrophils % % Lymphocytes % % Monocytes % % Eosinophils % % Basophils % % Neutrophils # (1.3-7.7) k/uL Lymphocytes # (1.0-4.8) k/uL Monocytes # (0-1.0) k/uL Eosinophils # (0-0.7) k/uL Basophils # (0-0.2) k/uL Hypochromasia Poikilocytosis Anisocytosis PT 11.6 (9.0-12.0) sec INR 1.1 (<1.2) APTT 26.3 (22.0-30.0) sec Sodium (137-145) mmol/L Potassium (3.5-5.1) mmol/L Chloride (98-107) mmol/L Carbon Dioxide (22-30) mmol/L Anion Gap mmol/L BUN (9-20) mg/dL Creatinine (0.66-1.25) mg/dL Est GFR (CKD-EPI)AfAm (>60 ml/min/1.73 sqM) Est GFR (CKD-EPI)NonAf (>60 ml/min/1.73 sqM) Glucose (74-99) mg/dL Plasma Lactic Acid Angel 1.5 (0.7-2.0) mmol/L Calcium (8.4-10.2) mg/dL Magnesium (1.6-2.3) mg/dL NT-Pro-B Natriuret Pep 4400 pg/mL Stool Occult Blood (Negative) Blood Type Blood Type Recheck Bld Type Recheck Status Antibody Screen Spec Expiration Date 05/27/19 Range/Units 15:32 WBC (3.8-10.6) k/uL RBC (4.30-5.90) m/uL Hgb (13.0-17.5) gm/dL Hct (39.0-53.0) % MCV (80.0-100.0) fL MCH (25.0-35.0) pg MCHC (31.0-37.0) g/dL RDW (11.5-15.5) % Plt Count (150-450) k/uL Neutrophils % % Lymphocytes % % Monocytes % % Eosinophils % % Basophils % % Neutrophils # (1.3-7.7) k/uL Lymphocytes # (1.0-4.8) k/uL Monocytes # (0-1.0) k/uL Eosinophils # (0-0.7) k/uL Basophils # (0-0.2) k/uL Hypochromasia Poikilocytosis Anisocytosis PT (9.0-12.0) sec INR (<1.2) APTT (22.0-30.0) sec Sodium (137-145) mmol/L Potassium (3.5-5.1) mmol/L Chloride (98-107) mmol/L Carbon Dioxide (22-30) mmol/L Anion Gap mmol/L BUN (9-20) mg/dL Creatinine (0.66-1.25) mg/dL Est GFR (CKD-EPI)AfAm (>60 ml/min/1.73 sqM) Est GFR (CKD-EPI)NonAf (>60 ml/min/1.73 sqM) Glucose (74-99) mg/dL Plasma Lactic Acid Angel (0.7-2.0) mmol/L Calcium (8.4-10.2) mg/dL Magnesium (1.6-2.3) mg/dL NT-Pro-B Natriuret Pep pg/mL Stool Occult Blood Negative (Negative) Blood Type Blood Type Recheck Bld Type Recheck Status Antibody Screen Spec Expiration Date Disposition Clinical Impression: Heart failure Disposition: ADMITTED IP TO THIS HOSP Condition: Fair Referrals: Dixon Sosa DO [Primary Care Provider] - 1-2 days Decision Time: 17:04
[2019-05-27 16:01] LABS: Anisocytosis Slight; Basophils # (A) 0.1 k/uL (0-0.2); Basophils % (A) 1 %; Eosinophils # (A) 0.3 k/uL (0-0.7); Eosinophils % (A) 4 %; HCT 30.4 % (39.0-53.0); HGB 8.9 gm/dL (13.0-17.5); Hypochromasia Marked; Lymphocytes # (A) 0.8 k/uL (1.0-4.8); Lymphocytes % (A) 11 %; MCH 26.2 pg (25.0-35.0); MCHC 29.3 g/dL (31.0-37.0); MCV 89.3 fL (80.0-100.0); Mean Platelet Volume 9.8; Monocytes # (A) 0.4 k/uL (0-1.0); Monocytes % (A) 6 %; Neutrophils % (A) 75 %; Platelet Count 258 k/uL (150-450); Poikilocytosis Moderate; RDW 17.8 % (11.5-15.5); WBC 6.7 k/uL (3.8-10.6)
[2019-05-27 16:06] LABS: Calcium 8.1 mg/dL (8.4-10.2); Potassium 3.9 mmol/L (3.5-5.1)
--- NOTE | 2019-05-27 16:10 | XR ---
EXAMINATION TYPE: XR chest 1V portable DATE OF EXAM: 05/27/2019 COMPARISON: 03/18/2014 HISTORY: Shortness of breath FINDINGS: Noted is pulmonary venous congestion with scattered infiltrates. There is also cardiomegaly and small effusions. IMPRESSION: Findings compatible with congestive failure. Infiltrates of other etiology are not excluded. Clinical correlation and progress studies are recommended.
[2019-05-27 16:25] LABS: INR 1.1 (<1.2); Partial Thromboplastin Time 26.3 sec (22.0-30.0); Prothrombin Time 11.6 sec (9.0-12.0)
[2019-05-27] MEDS ORDERED: BENZONATATE 100 MG CAP PO PRN (19:28)
[2019-05-27] MEDS ORDERED: MAGNESIUM HYDROXIDE 2,400 MG/10 ML CUP PO PRN (19:28)
[2019-05-27] MEDS ORDERED: BISACODYL 10 MG SUPP RECTAL PRN (19:28)
[2019-05-27] MEDS ORDERED: POLYETHYLENE GLYCOL 3350 17 GM POWD.PACK PO PRN (19:28)
[2019-05-27] MEDS: traMADol 50 MG TAB PO SCH (19:48)
[2019-05-27] MEDS: ALPRAZolam 0.5 MG TAB PO PRN (19:49)
[2019-05-27] MEDS: MELATONIN 3 MG TABLET PO SCH (19:49)
[2019-05-27] MEDS ORDERED: ARTIFICIAL TEARS-HYPROMELLOSE DROPS 15 ML BTL BOTH EYES PRN ×2 (20:57)
[2019-05-27] MEDS ORDERED: NA PHOS,M-B/NA PHOS,DI-BA 133 ML ENEMA RECTAL PRN (20:57)
[2019-05-27] MEDS ORDERED: FUROSEMIDE 10 MG/ML 4 ML VIAL IV SCH (21:00)
[2019-05-27] MEDS ORDERED: ACETAMINOPHEN TAB 500 MG TAB PO PRN (21:00)
[2019-05-27] MEDS: MINERAL OIL-WHITE PETROLATUM 120 GM JAR TOPICAL SCH (22:07)
--- NOTE | 2019-05-27 22:45 | HP ---
HISTORY AND PHYSICAL DATE OF SERVICE: 05/27/2019 CHIEF COMPLAINTS: Weakness and GI bleed. HISTORY OF PRESENT ILLNESS: This 69-year-old gentleman with a past medical history of multiple medical problems, such as hyponatremia, GI bleed, history of atrial fibrillation, history of hyperlipidemia, history of myocardial infarction, mitral valve prolapse, closed- head injury, history of significant mitral regurgitation, history of mitral valve repair and possibly paravalvular leak, being followed by Dr. Antoine in the outpatient setting, is a resident of [facility] for rehab at this time. The patient apparently is under hospice, as recommended by [facility]. Recently the patient was admitted with GI bleed. The patient has a history of previous AVMs documented at [facility]. Patient was treated symptomatically. Gastroenterology saw the patient. Patient improved significantly. Hemoglobin improved and the patient went home. Currently the patient is complaining of shortness of breath as well as weakness and generalized edema. The patient came to [facility] and was admitted for evaluation and treatment. A chest x-ray done in the ER, personally reviewed by me, showed evidence of CHF with bilateral pleural effusions. The patient was admitted for further evaluation and treatment. The hemoglobin is 8.9, creatinine is 1.34. Stool OB is negative. There is no history of any fever, rigor or chills. No history of headache, loss of consciousness, seizures. PAST MEDICAL HISTORY: History of previous mitral regurgitation, history of hypertension, hyperlipidemia, history of myocardial infarction, history of closed-head injury, history of CAD, CABG, stent. HOME MEDICATIONS: Reviewed. They include: 1. Ultram 25 mg p.o. q.i.d. 2. Senna 1 tablet p.o. b.i.d. p.r.n. 3. K-Dur 20 mEq p.o. daily. 4. Clear Eyes eyedrops. 5. MiraLAX p.r.n. 6. Protonix 40 mg p.o. daily. 7. Fleet enema. 8. Lopressor 12.5 mg p.o. b.i.d. 9. Melatonin 3 mg p.o. at bedtime. 10.Milk of Magnesia. 11.Morphine, oral. 12.DuoNeb q.i.d. and p.r.n. 13.Levsin 0.125 mg q.4 p.r.n. 14.Iron sulfate 325 mg p.o. daily. 15.Eucerin cream. 16.Bumex 3 mg p.o. b.i.d. 17.Dulcolax. 18.Tessalon Perles. 19.Artificial Tears. 20.Xanax 0.5 daily p.r.n. ALLERGIES: ATORVASTATIN, DIGOXIN, HEPARIN, COUMADIN, LISINOPRIL. FAMILY HISTORY: History of myocardial infarction in the family. SOCIAL HISTORY: Previous history of smoking. No current smoking or alcohol intake. REVIEW OF SYSTEMS: ENT: Diminished hearing. Diminished vision. CARDIOVASCULAR SYSTEM: As mentioned earlier. RESPIRATORY SYSTEM: As mentioned earlier. GI: As mentioned earlier. : No dysuria or retention. NERVOUS SYSTEM: No numbness, weakness. ALLERGY/IMMUNOLOGY: No asthma, hayfever. MUSCULOSKELETAL: As mentioned earlier. HEMATOLOGY/ONCOLOGY: No history of anemia. ENDOCRINE: No history of diabetes, hypothyroidism. CONSTITUTIONAL: As mentioned earlier. DERMATOLOGY: Negative. RHEUMATOLOGY: Negative. PSYCHIATRY: As mentioned earlier. PHYSICAL EXAMINATION: Patient is alert, oriented x3. Pulse is 102, blood pressure 118/81, respiration 25, temperature 98.2, pulse ox 100% on 3 L. HEENT: Conjunctivae pale. Oral mucosa moist. NECK: Jugular venous distention in the root of the neck. CARDIOVASCULAR SYSTEM: S1, S2 muffled. Ejection systolic murmur. RESPIRATORY SYSTEM: Breath sounds diminished at the bases. Bilateral scattered rhonchi and crackles. ABDOMEN: Soft, obese, non-tender. Abdominal wall edema present. LEGS: Bilateral leg edema. NERVOUS SYSTEM: Higher functions as mentioned earlier. Moves all 4 limbs. No focal motor or sensory deficit. LYMPHATICS: No lymph node palpable in neck, axillae or groin. SKIN: No ulcer, rash, bleeding. JOINTS: No active deforming arthropathy. LABS: WBC 6.6, hemoglobin 8.9, and platelets are 258. Sodium 139, potassium 3.9, creatinine 1.34. ASSESSMENT: 1. Congestive heart failure, acute exacerbation, with acute on chronic diastolic dysfunction. 2. History of recent gastrointestinal bleed with acute on chronic gastrointestinal bleed and small intestinal AVMs. 3. History of mitral valve prolapse and repair and possibly paravalvular leak. 4. History of atrial fibrillation. 5. History of chest pain, angina. 6. Hypertension. 7. Hyperlipidemia. 8. History of myocardial infarction. 9. History of intravascular hemolytic anemia. 10.History of coronary artery disease, coronary artery bypass grafting, stent. 11.History of tonsillectomy. 12.History of anxiety. 13.Remote history of nicotine dependence. 14.FULL CODE. RECOMMENDATIONS AND DISCUSSION: In this 69-year-old gentleman who presented with multiple complex medical issues, we will monitor the patient closely, continue the current medications, continue symptomatic treatment. The patient had evidence of CHF with significant bilateral pleural effusions. I would recommend fluid restriction of 200 mL/hour as well as intravenous Lasix 40 IV q.8. Otherwise, we will consult Cardiology. Resume the rest of the medications. Medication reconciliation will be done. Beta blockers. Will monitor the creatinine closely. I would also recommend a 2D echo with Doppler. Please note that currently the patient is FULL CODE and has been hospice on and off. I will have a detailed discussion with the family and the patient regarding the further course of action. It seems like the patient has significant difficulties with valvular pathology which was evaluated in [facility]. Will try to obtain some records from [facility] regarding their thoughts as far as the overall prognosis is concerned. A second opinion is always a possibility because of the multiple complex medical issues. We will continue to monitor. As mentioned earlier, monitor fluid/electrolyte balance closely and resume the home medications and continue to monitor. Discussed with the patient, who understands and agrees. Further recommendations to follow. A copy of this dictation is being forwarded to Dr. Antoine, who is the primary physician. LAYLA / URSULA: [id number] / JENNIFER
[2019-05-27] MEDS: FUROSEMIDE 10 MG/ML 4 ML VIAL IV SCH (23:17)
[2019-05-27] MEDS: IPRATROPIUM-ALBUTEROL 3 ML NEB INHALATION PRN (23:24)
[2019-05-28] MEDS ORDERED: FUROSEMIDE 40 MG TAB PO SCH
[2019-05-28] MEDS: traMADol 50 MG TAB PO SCH ×4 (01:53→20:36)
[2019-05-28 03:04] LABS: Appearance,Urine Clear (Clear); Bilirubin,Urine Negative (Negative); Blood,Urine Negative (Negative); Color,Urine Light Yellow; Glucose,Urine (UA) Negative (Negative); Ketones,Urine Negative (Negative); Leukocyte Esterase,Urine Negative (Negative); Nitrite,Urine Negative (Negative); PH, Urine 5.5 (5.0-8.0); Protein,Urine Negative (Negative); Specific Gravity,Urine 1.007 (1.001-1.035); Urobilinogen,Urine <2.0 mg/dL (<2.0)
[2019-05-28] MEDS: ALPRAZolam 0.5 MG TAB PO PRN (05:12)
[2019-05-28] MEDS ORDERED: METOPROLOL TARTRATE 12.5 MG TAB PO SCH (08:00)
[2019-05-28 08:51] LABS: Anisocytosis Slight; Basophils # (A) 0.1 k/uL (0-0.2); Basophils % (A) 1 %; Eosinophils # (A) 0.3 k/uL (0-0.7); Eosinophils % (A) 4 %; HCT 31.5 % (39.0-53.0); Hypochromasia Marked; Lymphocytes # (A) 0.6 k/uL (1.0-4.8); Lymphocytes % (A) 9 %; MCH 25.6 pg (25.0-35.0); MCHC 28.6 g/dL (31.0-37.0); MCV 89.6 fL (80.0-100.0); Mean Platelet Volume 9.2; Monocytes # (A) 0.4 k/uL (0-1.0); Monocytes % (A) 6 %; Neutrophils # (A) 5.1 k/uL (1.3-7.7); Neutrophils % (A) 78 %; Platelet Count 237 k/uL (150-450); Poikilocytosis Moderate; RBC 3.52 m/uL (4.30-5.90); WBC 6.6 k/uL (3.8-10.6)
[2019-05-28] MEDS ORDERED: METOPROLOL TARTRATE 25 MG TAB PO SCH (09:00)
[2019-05-28 09:01] LABS: Calcium 8.1 mg/dL (8.4-10.2); Potassium 3.9 mmol/L (3.5-5.1)
[2019-05-28] MEDS: FERROUS SULFATE 325 MG TAB PO SCH (09:06)
[2019-05-28] MEDS: FUROSEMIDE 10 MG/ML 4 ML VIAL IV SCH ×2 (09:06→16:29)
[2019-05-28] MEDS: ARTIFICIAL TEARS-HYPROMELLOSE DROPS 15 ML BTL BOTH EYES SCH ×3 (09:06→16:37)
[2019-05-28] MEDS: ASPIRIN 81 MG PO SCH (09:06)
[2019-05-28] MEDS: MINERAL OIL-WHITE PETROLATUM 120 GM JAR TOPICAL SCH ×2 (09:07→20:36)
[2019-05-28] MEDS: PANTOPRAZOLE 40 MG TABLET PO SCH (09:07)
[2019-05-28] MEDS: POTASSIUM CHLORIDE ER 20 MEQ TAB.ER PO SCH (09:07)
[2019-05-28] MEDS: SENNOSIDES-DOCUSATE SODIUM 1 EACH TAB PO SCH ×2 (09:07→16:29)
[2019-05-28] MEDS: POLYETHYLENE GLYCOL 3350 17 GM POWD.PACK PO SCH ×2 (09:07→16:30)
--- NOTE | 2019-05-28 11:48 | ECHOF ---
Referral Reason:chf MEASUREMENTS -------- HEIGHT: 177.8 cm WEIGHT: 90.7 kg BP: RVIDd: 5.8 cm (< 3.3) IVSd: 1.1 cm (0.6 - 1.1) LVIDd: 4.2 cm (3.9 - 5.3) LVPWd: 1.2 cm (0.6 - 1.1) IVSs: 1.3 cm LVIDs: 3.1 cm LVPWs: 1.5 cm LAESV Index (A-L): 47.91 ml/m Ao Diam: 2.8 cm (2.0 - 3.7) AV Cusp: 2.2 cm (1.5 - 2.6) LA Diam: 5.4 cm (2.7 - 3.8) MV EXCURSION: 18.685 mm (> 18.000) MV EF SLOPE: 69 mm/s (70 - 150) EPSS: 0.5 cm MV E Edgardo: 1.86 m/s MV DecT: 174 ms MV A Edgardo: 0.70 m/s MV E/A Ratio: 2.67 AR PHT: 534 ms RAP: 15.00 mmHg RVSP: 117.98 mmHg FINDINGS -------- Resting tachycardia (HR>100bpm). This was a technically good study. The left ventricular size is normal. There is mild concentric left ventricular hypertrophy. Overa ll left ventricular systolic function is low-normal with, an EF between 50 - 55 %. There is paradox ical/dysynergic septal motion consistent with right ventricular volume overload and/or elevated right ventricular end-diastolic pressure. The right ventricle is severely enlarged. Paradoxical motion of the right ventricular septum is con sistent with right ventricular overload and/or elevated right ventricular end-diastolic pressure. LA is severely dilated >40 ml/m2 The right atrium is mildly enlarged. Aortic valve is trileaflet and is mildly thickened. The mitral valve is normal. Severe mitral regurgitation is present. The peak and mean MV gradien ts are 12.83mmHg 5.64mmHg as measured by doppler. Mitral ring annulloplasty is in place. The tricuspid valve appears structurally normal. Severe tricuspid regurgitation present. There is severe pulmonary hypertension. There is no pulmonic regurgitation present. The aortic root size is normal. The inferior vena cava is dilated with no significant inspiratory collapse which is consistent estima justin right atrial pressure of >20 mmHg. There is no pericardial effusion. CONCLUSIONS -------- 1. Resting tachycardia (HR>100bpm). 2. This was a technically good study. 3. The left ventricular size is normal. 4. There is mild concentric left ventricular hypertrophy. 5. Overall left ventricular systolic function is low-normal with, an EF between 50 - 55 %. 6. There is paradoxical/dysynergic septal motion consistent with right ventricular volume overload an d/or elevated right ventricular end-diastolic pressure. 7. The right ventricle is severely enlarged. 8. Paradoxical motion of the right ventricular septum is consistent with right ventricular overload a nd/or elevated right ventricular end-diastolic pressure. 9. LA is severely dilated >40 ml/m2 10. The right atrium is mildly enlarged. 11. Aortic valve is trileaflet and is mildly thickened. 12. The mitral valve is normal. 13. Severe mitral regurgitation is present. 14. The peak and mean MV gradients are 12.83mmHg 5.64mmHg as measured by doppler. 15. Mitral ring annulloplasty is in place. 16. The tricuspid valve appears structurally normal. 17. Severe tricuspid regurgitation present. 18. There is severe pulmonary hypertension. 19. There is no pulmonic regurgitation present. 20. The aortic root size is normal. 21. The inferior vena cava is dilated with no significant inspiratory collapse which is consistent es timated right atrial pressure of >20 mmHg. 22. There is no pericardial effusion. SYNCHRO ASSEMBLER: Josefina Monahan RDCS
[2019-05-28 13:01] VITALS: BMI 27.1
--- NOTE | 2019-05-28 13:07 | P.CRDCN ---
History of Present Illness History of present illness: HISTORY OF PRESENTING ILLNESS This is a pleasant 69-year-old male past medical history significant for coronary artery disease status post bypass grafting in 2014, valvular heart disease status post mitral valve repair, and chronic diastolic heart failure, chronic persistent atrial fibrillation on long-term anticoagulation secondary to patient refusal, hypertension and dyslipidemia. He follows in the office with Dr. Solano. We have been asked to see in consultation for heart failure. He is seen and examined sitting up in bed in no acute distress. He was sent from [facility] secondary to increasing weakness, shortness of breath and lower extremity edema. He is currently on hospice however requested transfer to the hospital secondary to difficulty breathing. He is currently being diuresed with Lasix IV 40 mg 3 times a day. His heart rate is fluctuating between the 110 in the 120 currently in atrial fibrillation. He did not receive any of his Lopressor last night or this morning. Current daily cardiac medications include aspirin 81 mg daily, Bumex 3 mg twice a day and Lopressor 12.5 mg twice a day. Laboratory data reviewed, WBC 6.6, hemoglobin 9, platelets 237, sodium 131, potassium 3.9, creatinine 1.15, NT proBNP 4400. REVIEW OF SYSTEMS At the time of my exam: CONSTITUTIONAL: Denies fever or chills. CARDIOVASCULAR: Complains of shortness of breath and palpitations. Denies chest pain, orthopnea or PND. RESPIRATORY: Denies cough. GASTROINTESTINAL: Denies abdominal pain, diarrhea, constipation, nausea or vomiting. MUSCULOSKELETAL: Denies myalgias. NEUROLOGIC: Denies numbness, tingling or weakness. ENDOCRINE: Denies fatigue, weight change, polydipsia or polyurina. GENITOURINARY: Denies burning, hematuria or urgency with micturation. HEMATOLOGIC: Denies history of anemia or bleeding. PHYSICAL EXAMINATION Blood pressure 122/56 heart rate 114 afebrile and maintaining oxygen saturation on nasal cannula. CONSTITUTIONAL: No apparent distress. HEENT: Head is normocephalic. Pupils are equal, round. Sclerae anicteric. Mucous membranes of the mouth are moist. No JVD. No carotid bruit. CHEST EXAMINATION: Faint bibasilar rales. No chest wall tenderness is noted on palpation or with deep breathing. HEART EXAMINATION: Irregular rate and rhythm. S1, S2 heard. Systolic ejection murmur at the left sternal border, no gallops or rub. ABDOMEN: Soft, nontender. Positive bowel sounds. EXTREMITIES: 2+ peripheral pulses, 1+ bilateral lower extremity pitting edema and no calf tenderness. NEUROLOGIC EXAMINATION: Patient is awake, alert and oriented x3. ASSESSMENT Acute on chronic diastolic heart failure Chronic persistent atrial fibrillation with mildly rapid ventricular rates Hypertension Coronary artery disease status post bypass grafting PLAN Continue IV diuresis. Document accurate intake and output along with daily weights. Follow renal function and electrolytes in the morning. Increase Lopressor to 25 mg 3 times a day. We will continue to follow make recommendations accordingly. Thank you kindly for this consultation. Nurse Practitioner note has been reviewed, I agree with a documented findings and plan of care. Patient was seen and examined. Past Medical History Past Medical History: Atrial Fibrillation, Chest Pain / Angina, Hyperlipidemia, Hypertension, Myocardial Infarction (AL), Mitral Valve Prolapse (MVP) Additional Past Medical History / Comment(s): hx closed head injury, mild he will lysis likely related to his mitral valve repair and ring placement causing intravascular hemolytic lysis. Was seen by hematology back in September 2013 hospitalization. CABG 08/27/2013. anemia Last Myocardial Infarction Date:: 2004 History of Any Multi-Drug Resistant Organisms: None Reported Past Surgical History: Coronary Bypass/CABG, Heart Catheterization With Stent, Tonsillectomy Additional Past Surgical History / Comment(s): mitral valve repair Past Anesthesia/Blood Transfusion Reactions: Previous Problems w/ Anesthesia Additional Past Anesthesia/Blood Transfusion Reaction / Comment(s): confusion and lost memory from anesthesia Date of Last Stent Placement:: 2004 Past Psychological History: Anxiety Smoking Status: Former smoker Past Alcohol Use History: None Reported Past Drug Use History: None Reported - Past Family History Father Family Medical History: Myocardial Infarction (AL) Additional Family Medical History / Comment(s): Father of a heart attack at age 55 Medications and Allergies Home Medications Medication Instructions Recorded Confirmed Type Artificial Tears-Hypromellose 1 drop BOTH EYES TID@0800,1200,1700 05/12/19 05/27/19 History [Artificial Tear Drops] Benzonatate [Tessalon Perles] 100 mg PO TID PRN 05/12/19 05/27/19 History Bisacodyl [Dulcolax] 10 mg RECTAL DAILY PRN 05/12/19 05/27/19 History Bumetanide [BUMEX] 3 mg PO BID@0900,1700 05/12/19 05/27/19 History Ferrous Gluconate 324 mg PO DAILY@0800 05/12/19 05/27/19 History Hyoscyamine Sulfate [Levsin] 0.125 mg PO Q4H PRN 05/12/19 05/27/19 History Ipratropium-Albuterol Nebulize 3 ml INHALATION RT-Q8H PRN 05/12/19 05/27/19 History [Duoneb 0.5 mg-3 mg/3 ml Soln] MORPHINE ORAL EMIL CONC 20mg/mL 5 mg PO Q4H PRN 05/12/19 05/27/19 History [Roxanol Oral Soln Conc 20MG/ML] Magnesium Hydroxide [Milk of 7,200 mg PO DAILY PRN 05/12/19 05/27/19 History Magnesia Concentrate] Metoprolol Tartrate [Lopressor] 12.5 mg PO BID@0800,1700 05/12/19 05/27/19 History Na Phos,M-B/Na Phos,Di-Ba [Fleet 133 ml RECTAL ONCE PRN 05/12/19 05/27/19 Hist ory Adult] Pantoprazole Sodium [Protonix] 40 mg PO DAILY@0800 05/12/19 05/27/19 History Polyethylene Glycol 3350 [Miralax] 17 gm PO DAILY@0805/12/19 05/27/19 History Polyvinyl Alcohol/Povidone [Clear 1 drop BOTH EYES Q2H PRN 05/12/19 05/27/19 History Eyes Natural Tears Drop] Sennosides/Docusate Sodium [La 1 tab PO BID@0800,1700 05/12/19 05/27/19 History Colace] traMADol HCL 25 mg PO QID@02,08,14,20 05/12/19 05/27/19 History ALPRAZolam [Xanax] 0.5 mg PO DAILY@0800 05/27/19 05/27/19 History ALPRAZolam [Xanax] 0.5 mg PO Q8H PRN 05/27/19 05/27/19 History Artificial Tears-Hypromellose 1 drop BOTH EYES DAILY PRN 05/27/19 05/27/19 History [Artificial Tear Drops] Aspirin 81 mg PO DAILY@0800 05/27/19 05/27/19 History Eucerin Cream 1 applic TOPICAL BID 05/27/19 05/27/19 History Melatonin 3 mg PO HS@2100 05/27/19 05/27/19 History Polyethylene Glycol 3350 [Miralax] 17 gm PO DAILY PRN 05/27/19 05/27/19 History Potassium Chloride ER [K-Dur 20] 20 meq PO DAILY@0800 05/27/19 05/27/19 History Allergies Allergy/AdvReac Type Severity Reaction Status Date / Time atorvastatin Allergy Unknown Verified 05/27/19 19:06 digoxin Allergy Unknown Verified 05/27/19 19:06 heparin Allergy Unknown Verified 05/27/19 19:06 warfarin [From Coumadin] Allergy Unknown Verified 05/27/19 19:06 lisinopril AdvReac Intermediate Unknown Verified 05/27/19 19:06 Physical Exam Vitals: Vital Signs Temp Pulse Pulse Resp BP BP Pulse Ox 05/28/19 07:37 96 05/28/19 05:00 97.8 F 114 H 20 122/56 96 05/27/19 23:35 110 H 15 05/27/19 23:27 98 05/27/19 23:24 111 H 14 05/27/19 22:46 112 H 05/27/19 18:44 97.4 F L 118 H 20 119/66 99 05/27/19 17:58 111 H 25 H 126/63 100 05/27/19 17:13 102 H 25 H 118/81 100 05/27/19 15:14 105 H 26 H 118/70 100 05/27/19 15:11 98.5 F 101 H 24 116/71 95 Intake and Output 05/27/19 05/28/19 05/28/19 22:59 06:59 14:59 Output Total 400 Balance -400 Output: Urine 400 Other: Voiding Method Incontinent Urinal # Voids 1 1 Weight 90.718 kg Results 05/28/19 08:32 05/28/19 08:32 Coagulation 05/27/19 Range/Units 15:09 PT 11.6 (9.0-12.0) sec APTT 26.3 (22.0-30.0) sec CBC 05/27/19 05/28/19 Range/Units 15:09 08:32 WBC 6.7 6.6 (3.8-10.6) k/uL RBC 3.40 L 3.52 L (4.30-5.90) m/uL Hgb 8.9 L 9.0 L (13.0-17.5) gm/dL Hct 30.4 L 31.5 L (39.0-53.0) % Plt Count 258 237 (150-450) k/uL Comprehensive Metabolic Panel 05/27/19 05/28/19 Range/Units 15:09 08:32 Sodium 131 L 131 L (137-145) mmol/L Potassium 3.9 3.9 (3.5-5.1) mmol/L Chloride 99 101 (98-107) mmol/L Carbon Dioxide 24 21 L (22-30) mmol/L BUN 35 H 35 H (9-20) mg/dL Creatinine 1.34 H 1.15 (0.66-1.25) mg/dL Glucose 101 H 111 H (74-99) mg/dL Calcium 8.1 L 8.1 L (8.4-10.2) mg/dL Current Medications Generic Name Dose Route Start Last Admin Trade Name Freq PRN Reason Stop Dose Admin Acetaminophen 500 mg 05/27/19 21:00 Tylenol Tab PO Q6HR PRN Fever and/ or Pain Hydrocodone Bitart/Acetaminophen 1 each 05/27/19 21:00 [place] 5-325 PO Q6HR PRN Pain Albuterol/Ipratropium 3 ml 05/27/19 19:28 05/27/19 23:24 Duoneb 0.5 Mg-3 Mg/3 Ml Soln INHALATION 3 ml RT-Q8H PRN Administration Shortness Of Breath/WHEEZING Alprazolam 0.5 mg 05/27/19 19:28 05/28/19 05:12 Xanax PO 0.5 mg Q8H PRN Administration Anxiety Artificial Tears 1 drops 05/28/19 08:00 05/28/19 09:06 Artificial Tear Drops BOTH EYES 1 drops TID@0800,1200,1700 [facility] Administration Artificial Tears 1 drops 05/27/19 20:57 Artificial Tear Drops BOTH EYES Q2H PRN Dry Eye(s) Aspirin 81 mg 05/28/19 08:00 05/28/19 09:06 Aspirin PO 81 mg DAILY@0800 [facility] Administration Benzonatate 100 mg 05/27/19 19:28 Tessalon Perles PO TID PRN Cough Bisacodyl 10 mg 05/27/19 19:28 Dulcolax RECTAL DAILY PRN Constipation Ferrous Sulfate 325 mg 05/28/19 08:00 05/28/19 09:06 Feosol PO 325 mg DAILY@0800 [facility] Administration Furosemide 40 mg 05/28/19 00:00 05/28/19 09:06 Lasix IV 40 mg Q8HR [facility] Administration Magnesium Hydroxide 2,400 mg 05/27/19 19:28 Milk Of Magnesia PO DAILY PRN Constipation Melatonin 3 mg 05/27/19 21:00 05/27/19 19:49 Melatonin PO 3 mg HS@2100 [facility] Administration Metoprolol Tartrate 25 mg 05/28/19 09:00 05/28/19 09:07 Lopressor PO 25 mg BID [facility] Administration Multi-Ingred Cream/Lotion/Oil/Oint 1 applic 05/27/19 21:00 05/28/19 09:07 Eucerin Cream TOPICAL 1 applic BID [facility] Administration Pantoprazole Sodium 40 mg 05/28/19 08:00 05/28/19 09:07 Protonix PO 40 mg DAILY@0800 [facility] Administration Polyethylene Glycol 17 gm 05/27/19 19:28 Miralax PO DAILY PRN Constipation Polyethylene Glycol 17 gm 05/28/19 08:00 05/28/19 09:07 Miralax PO 17 gm DAILY@0800 [facility] Administration Potassium Chloride 20 meq 05/28/19 08:00 05/28/19 09:07 K-Dur 20 PO 20 meq DAILY@0800 [facility] Administration Senna/Docusate Sodium 1 each 05/28/19 08:00 05/28/19 09:07 Senokot-S PO 1 each BID@0800,1700 [facility] Administration Sodium Biphosphate/Sodium Phosphate 133 ml 05/27/19 20:57 Fleet Adult RECTAL ONCE PRN Constipation Tramadol HCl 25 mg 05/27/19 20:00 05/28/19 07:54 Ultram PO 25 mg QID@, [facility] Administration Intake and Output 05/27/19 05/28/19 05/28/19 22:59 06:59 14:59 Output Total 400 Balance -400 Output: Urine 400 Other: Voiding Method Incontinent Urinal # Voids 1 1 Weight 90.718 kg 05/28/19 08:32 05/28/19 08:32
--- NOTE | 2019-05-28 16:14 | PN ---
PROGRESS NOTE DATE OF SERVICE: 05/28/2019 This 69-year-old gentleman admitted with CHF, acute exacerbation, also had a history of chronic GI bleed. A 2D echo with Doppler was done today. The patient was started on IV Lasix. The patient has significant fluid overload. The 2D echo showed ejection fraction about 50% to 55% and paradoxical motion of the right ventricular septum as well as severely dilated LA. Severe mitral regurgitation was also noted. Mitral ring annuloplasty was in place. The patient also had a small intestinal AVM, but currently the hemoglobin is at 9. The patient received transfusion during the past admission. Patient is being closely monitored. Patient apparently was evaluated by [facility] and was recommended hospice at that time. Past medical history reviewed. REVIEW OF SYSTEMS: CARDIOVASCULAR SYSTEM: As mentioned earlier. RESPIRATORY SYSTEM: As mentioned earlier. GI: No nausea, vomiting. : No dysuria or retention. NERVOUS SYSTEM: No numbness, weakness. CURRENT MEDICATIONS: Reviewed. They include: 1. Tylenol p.r.n. 2. [place] 5 mg q.6 p.r.n. 3. DuoNeb q.i.d. and p.r.n. 4. Xanax 0.5 q.8. 5. Artificial Tears. 6. Aspirin 81 mg p.o. daily. 7. Tessalon 100 mg p.o. t.i.d. 8. Dulcolax. 9. Iron sulfate 320 mg daily. 10.Lasix 40 mg IV q.8. 11.Milk of Magnesia. 12.Melatonin. 13.Lopressor. 14.Eucerin. 15.Protonix. 16.MiraLAX. 17.K-Dur 20 mEq. 18.Senokot-S. 19.Fleet enema. 20.Ultram. PHYSICAL EXAMINATION: Patient is alert, oriented x3. Pulse is 114 blood pressure 122/56, respiration 20, temperature 97.8, pulse ox 96% on 2 L. HEENT: Conjunctivae normal. NECK: No jugular venous distention. CARDIOVASCULAR SYSTEM: S1, S2 muffled. RESPIRATORY SYSTEM: Breath sounds diminished at the bases. Bilateral scattered rhonchi and crackles. ABDOMEN: Soft, non-tender. LEGS: No edema. No swelling. NERVOUS SYSTEM: No focal deficit. LABS: WBC 6.6, hemoglobin is 9. Sodium 139, potassium 3.9 and creatinine is 1.15. ASSESSMENT: 1. Congestive heart failure, acute exacerbation, with acute on chronic diastolic dysfunction, ejection fraction 50% to 55%. 2. Severe mitral regurgitation, possibly with paravalvular leak. 3. History of recent gastrointestinal bleed with acute on chronic gastrointestinal bleed with small intestinal AVMs. 4. History of mitral valve prolapse and repair. 5. History of atrial fibrillation. 6. History of chest pain, angina. 7. Hypertension. 8. Hyperlipidemia. 9. History of myocardial infarction. 10.History of intravascular hemolytic anemia and hemolysis. 11.History of coronary artery disease, coronary artery bypass grafting, stent. 12.History of tonsillectomy. 13.History of anxiety. 14.Remote history of nicotine dependence. 15.FULL CODE. RECOMMENDATIONS AND DISCUSSION: In this 69-year-old gentleman who presented with multiple complex medical issues, we will monitor the patient closely, continue the current medications, continue with symptomatic treatment. Otherwise at this time I recommend continuing with IV Lasix. Monitor fluid/electrolyte balance closely. Creatinine has improved to 1.15. We will monitor the patient closely. I also had a detailed discussion with the patient's daughter, Hayley, over the phone. At this time I would recommend a second opinion from a major cardiovascular institute regarding the complicated mitral regurgitation, which is possibly the primary cause of the recurrent CHF at this time. Otherwise, continue to monitor. Continue the rest of the medications. I once again discussed with the patient, who understands. Further recommendations to follow. A copy of this dictation is being forwarded to Dr. Sosa and Dr. Antoine. DVT prophylaxis. Avoid antiplatelet agents and anticoagulants for now. MMODL / IJN: [id number] /
[2019-05-28] MEDS: METOPROLOL TARTRATE 25 MG TAB PO SCH ×2 (16:29→22:21)
[2019-05-28] MEDS: IPRATROPIUM-ALBUTEROL 3 ML NEB INHALATION PRN (19:29)
[2019-05-28] MEDS: MELATONIN 3 MG TABLET PO SCH (22:21)
[2019-05-29] MEDS: FUROSEMIDE 10 MG/ML 4 ML VIAL IV SCH ×4 (00:23→23:42)
[2019-05-29] MEDS: traMADol 50 MG TAB PO SCH ×4 (02:52→19:58)
[2019-05-29 07:46] LABS: Anisocytosis Slight; Basophils # (A) 0.1 k/uL (0-0.2); Basophils % (A) 1 %; Eosinophils # (A) 0.3 k/uL (0-0.7); Eosinophils % (A) 5 %; HCT 31.8 % (39.0-53.0); HGB 9.2 gm/dL (13.0-17.5); Hypochromasia Marked; Lymphocytes # (A) 0.6 k/uL (1.0-4.8); Lymphocytes % (A) 11 %; MCH 25.5 pg (25.0-35.0); MCHC 28.8 g/dL (31.0-37.0); MCV 88.6 fL (80.0-100.0); Mean Platelet Volume 7.9; Monocytes # (A) 0.5 k/uL (0-1.0); Monocytes % (A) 8 %; Neutrophils # (A) 4.5 k/uL (1.3-7.7); Neutrophils % (A) 74 %; Platelet Count 222 k/uL (150-450); Poikilocytosis Moderate; RBC 3.59 m/uL (4.30-5.90); RDW 18.2 % (11.5-15.5); WBC 6.1 k/uL (3.8-10.6)
[2019-05-29] MEDS: METOPROLOL TARTRATE 25 MG TAB PO SCH ×3 (07:57→21:14)
[2019-05-29] MEDS: POTASSIUM CHLORIDE ER 20 MEQ TAB.ER PO SCH (07:57)
[2019-05-29] MEDS: PANTOPRAZOLE 40 MG TABLET PO SCH (07:57)
[2019-05-29] MEDS: ASPIRIN 81 MG PO SCH (07:57)
[2019-05-29] MEDS: SENNOSIDES-DOCUSATE SODIUM 1 EACH TAB PO SCH ×2 (07:57→17:08)
[2019-05-29 07:58] LABS: Calcium 8.1 mg/dL (8.4-10.2); Potassium 3.8 mmol/L (3.5-5.1)
[2019-05-29] MEDS: FERROUS SULFATE 325 MG TAB PO SCH (07:58)
[2019-05-29] MEDS: POLYETHYLENE GLYCOL 3350 17 GM POWD.PACK PO SCH (07:58)
[2019-05-29] MEDS: ARTIFICIAL TEARS-HYPROMELLOSE DROPS 15 ML BTL BOTH EYES SCH ×3 (07:59→17:09)
[2019-05-29] MEDS: MINERAL OIL-WHITE PETROLATUM 120 GM JAR TOPICAL SCH ×2 (07:59→19:59)
--- NOTE | 2019-05-29 13:43 | P.PN ---
Subjective HISTORY OF PRESENTING ILLNESS This is a pleasant 69-year-old male past medical history significant for coronary artery disease status post bypass grafting in 2014, valvular heart disease status post mitral valve repair, and chronic diastolic heart failure, chronic persistent atrial fibrillation on long-term anticoagulation secondary to patient refusal, hypertension and dyslipidemia. He follows in the office with Dr. Solano. We have been asked to see in consultation for heart failure. He is seen and examined sitting up in bed in no acute distress. He was sent from [facility] secondary to increasing weakness, shortness of breath and lower extremity edema. He is currently on hospice however requested transfer to the hospital secondary to difficulty breathing. He is currently being diuresed with Lasix IV 40 mg 3 times a day. His heart rate is fluctuating between the 110 in the 120 currently in atrial fibrillation. He did not receive any of his Lopressor last night or this morning. Current daily cardiac medications include aspirin 81 mg daily, Bumex 3 mg twice a day and Lopressor 12.5 mg twice a day. Laboratory data reviewed, WBC 6.6, hemoglobin 9, platelets 237, sodium 131, potassium 3.9, creatinine 1.15, NT proBNP 4400. 05/29/2019 Patient is seen and examined sitting up in chair in no acute distress. He states his heart palpitations have greatly improved. He continues to feel mildly short of breath. Blood pressure 114/77 heart rate 94 afebrile maintaining oxygen saturation on nasal cannula. Laboratory data reviewed, WBC 6.1, hemoglobin 9.2, platelets 222, sodium 134, potassium 3.8 and creatinine 1.21. He is putting out 57 year and a maintaining a negative fluid balance. Currently maintained on aspirin 81 mg daily, Lasix IV 40 mg 3 times a day and Lopressor 25 mg 3 times a day. PHYSICAL EXAMINATION CONSTITUTIONAL: No apparent distress. HEENT: Head is normocephalic. Pupils are equal, round. Sclerae anicteric. Mucous membranes of the mouth are moist. No JVD. No carotid bruit. CHEST EXAMINATION: Clear to auscultation bilaterally. No chest wall tenderness is noted on palpation or with deep breathing. Diminished. HEART EXAMINATION: Irregular rate and rhythm. S1, S2 heard. Systolic ejection murmur at the left sternal border, no gallops or rub. EXTREMITIES: 2+ peripheral pulses, 1+ bilateral lower extremity pitting edema and no calf tenderness. ASSESSMENT Acute on chronic diastolic heart failure Chronic persistent atrial fibrillation with mildly rapid ventricular rates Hypertension Coronary artery disease status post bypass grafting PLAN Continue IV diuresis. Document accurate intake and output along with daily weights. Follow renal function and electrolytes in the morning. Further recommendations to follow based upon clinical course. Nurse Practitioner note has been reviewed, I agree with a documented findings and plan of care. Patient was seen and examined. Objective - Vital Signs Vital signs: Vital Signs Temp 97.5 F L 05/29/19 11:45 Pulse 94 05/29/19 11:45 Resp 16 05/29/19 11:45 BP 114/77 05/29/19 11:45 Pulse Ox 100 05/29/19 11:45 Intake & Output 05/28/19 05/29/19 05/29/19 18:59 06:59 18:59 Intake Total 480 Output Total 300 1000 Balance -300 -520 Weight 94.3 kg Intake: Oral 480 Output: Urine 300 1000 Other: Voiding Method Urinal Urinal Urinal # Voids 3 # Bowel Movements 1 - Labs CBC & Chem 7: 05/29/19 07:26 05/29/19 07:26 Labs: Abnormal Lab Results - Last 24 Hours (Table) 05/29/19 05/29/19 Range/Units 07:26 07:26 RBC 3.59 L (4.30-5.90) m/uL Hgb 9.2 L (13.0-17.5) gm/dL Hct 31.8 L (39.0-53.0) % MCHC 28.8 L (31.0-37.0) g/dL RDW 18.2 H (11.5-15.5) % Lymphocytes # 0.6 L (1.0-4.8) k/uL Sodium 134 L (137-145) mmol/L BUN 34 H (9-20) mg/dL Glucose 106 H (74-99) mg/dL Calcium 8.1 L (8.4-10.2) mg/dL
[2019-05-29] MEDS: ALPRAZolam 0.5 MG TAB PO PRN (14:20)
[2019-05-29] MEDS: HYDROcodone/APAP 5-325MG 1 EACH TAB PO PRN (21:14)
--- NOTE | 2019-05-29 23:13 | PN ---
PROGRESS NOTE DATE OF SERVICE: 05/29/2019 This 69-year-old gentleman who was admitted with CHF acute exacerbation, was apparently on hospice. Currently he wants FULL CODE. Patient was evaluated at [facility] for severe mitral regurgitation. Patient was apparently not a surgical candidate. The ejection fraction found to be 50-55%. Patient treated with Lasix. Patient being closely monitored. PAST MEDICAL HISTORY: Reviewed. REVIEW OF SYMPTOMS: CARDIOVASCULAR as mentioned earlier. RESPIRATORY: As mentioned earlier. GASTROINTESTINAL: No nausea or vomiting. : No dysuria or retention. CENTRAL NERVOUS SYSTEM: No numbness or weakness. CURRENT MEDICATIONS: Reviewed and include: 1. Tylenol 500 mg q.6h p.r.n. 2. [place] 5 mg p.r.n. 3. DuoNeb q.i.d. and p.r.n. 4. Xanax 0.5 p.o. q.8h. 5. Artificial Tears. 6. Aspirin 81 mg daily. 7. Tessalon Perles. 8. Dulcolax. 9. Iron sulfate. 10.Lasix. 11.Milk of magnesia. 12.Melatonin. 13.Lopressor. 14.Multivitamins. 15.MiraLAX. 16.K-Dur 20 mEq daily. 17.Senokot-S. 18.Fleets. 19.Ultram. PHYSICAL EXAM: Patient is alert, oriented x3. Pulse is 94, blood pressure 114/76, respirations 16, temp 97.4, pulse ox 100 percent on 2 L. HEENT: Conjunctivae normal. NECK: No JVD. CARDIOVASCULAR: S1, S2 muffled. RESPIRATIONS: Breath sounds diminished in the bases. Bilateral scattered rhonchi and crackles. Expiratory wheezing also present. ABDOMEN: Soft, nontender. LEGS: Bilateral leg edema. NERVOUS SYSTEM: Diffusely weak. LABS: WBC 6.2, hemoglobin 9.2. Sodium 130, potassium 3.8. ASSESSMENT: 1. Congestive heart failure acute exacerbation with acute on chronic diastolic dysfunction, ejection fraction 50-55 percent. 2. Severe mitral regurgitation, possible paravalvular leak. 3. History of recent gastrointestinal bleed with acute on chronic gastrointestinal bleed with small intestinal AVMs. 4. History of mitral prolapse and repair. 5. History of atrial fibrillation, chronic persistent. 6. History of chest pains/angina. 7. Hypertension. 8. Hyperlipidemia. 9. History of myocardial infarction. 10.History of intravascular hemolytic anemia . 11.Coronary artery disease, coronary artery bypass grafting/ stent. 12.History of tonsillectomy. 13.History of anxiety. 14.Remote history of nicotine dependence. 15.FULL CODE. RECOMMENDATIONS AND DISCUSSION: In this 69-year-old gentleman who presented with multiple complex medical issues. We will monitor the patient closely, continue the current medications, management and symptomatic treatment. Continue with diuretics. Monitor fluid and electrolytes balance closely. Follow the creatinine closely. Currently patient is on Lasix 40 mg IV q.8h. The most recent chest x-ray done on 05/27/2019, I would recommend repeat chest x-ray tomorrow. I also discussed the case at length with Hayley, the daughter, who works in [place] with and at this time the possibility of a second opinion also being discussed, but apparently the patient has significant concerns with transportation. Only relative in town is the patient's sister who does not have any mode of transportation. She works in a factory at night according to the daughter who works in [place]. We will consult social Work, Case Management to facilitate a 2nd opinion. If it is not 2nd opinion is not possible or if the patient chooses against it, the options will be either FULL CODE or NO CODE MEANS NO CPR, NO VENT or HOSPICE. Currently the patient is fluctuating between hospice and hospice in the ECF and FULL CODE in the hospital. We will try to avoid the situation. With discussed the patient and the daughter and the daughter will also explain to the patient once more and we will continue to monitor. Further recommendations to follow. See orders for details. MMODL / IJN: [id number] / JENNIFER
[2019-05-29] MEDS: MELATONIN 3 MG TABLET PO SCH (23:42)
[2019-05-30] MEDS: traMADol 50 MG TAB PO SCH ×4 (02:16→20:47)
[2019-05-30] MEDS: HYDROcodone/APAP 5-325MG 1 EACH TAB PO PRN ×2 (03:49→12:29)
--- NOTE | 2019-05-30 06:35 | XR ---
EXAMINATION TYPE: XR chest 1V portable DATE OF EXAM: 05/30/2019 HISTORY: chf. REFERENCE: Previous study dated 05/27/2019. FINDINGS: There has been a midline sternotomy. There are bilateral effusions. Heart size upper limits of normal. There is improved aeration of both lungs. There is decrease in interstitial change. IMPRESSION: IMPROVING CHANGES OF CONGESTIVE HEART FAILURE.
[2019-05-30 08:21] LABS: Calcium 8.3 mg/dL (8.4-10.2); Potassium 4.1 mmol/L (3.5-5.1)
[2019-05-30 08:30] LABS: Anisocytosis Slight; Basophils % (A) 0 %; Eosinophils # (A) 0.3 k/uL (0-0.7); Eosinophils % (A) 5 %; HCT 32.2 % (39.0-53.0); HGB 9.3 gm/dL (13.0-17.5); Hypochromasia Marked; Lymphocytes # (A) 0.8 k/uL (1.0-4.8); Lymphocytes % (A) 12 %; MCH 25.6 pg (25.0-35.0); MCHC 28.9 g/dL (31.0-37.0); MCV 88.9 fL (80.0-100.0); Mean Platelet Volume 9.8; Monocytes # (A) 0.5 k/uL (0-1.0); Monocytes % (A) 7 %; Neutrophils # (A) 5.1 k/uL (1.3-7.7); Neutrophils % (A) 74 %; Platelet Count 312 k/uL (150-450); Poikilocytosis Moderate; RBC 3.62 m/uL (4.30-5.90); RDW 17.7 % (11.5-15.5); WBC 6.9 k/uL (3.8-10.6)
[2019-05-30] MEDS: ASPIRIN 81 MG PO SCH (09:01)
[2019-05-30] MEDS: MINERAL OIL-WHITE PETROLATUM 120 GM JAR TOPICAL SCH ×2 (09:01→20:49)
[2019-05-30] MEDS: POLYETHYLENE GLYCOL 3350 17 GM POWD.PACK PO SCH (09:01)
[2019-05-30] MEDS: POTASSIUM CHLORIDE ER 20 MEQ TAB.ER PO SCH (09:01)
[2019-05-30] MEDS: PANTOPRAZOLE 40 MG TABLET PO SCH (09:01)
[2019-05-30] MEDS: FERROUS SULFATE 325 MG TAB PO SCH (09:01)
[2019-05-30] MEDS: ARTIFICIAL TEARS-HYPROMELLOSE DROPS 15 ML BTL BOTH EYES SCH ×3 (09:01→16:23)
[2019-05-30] MEDS: SENNOSIDES-DOCUSATE SODIUM 1 EACH TAB PO SCH ×2 (09:04→16:22)
[2019-05-30] MEDS: METOPROLOL TARTRATE 25 MG TAB PO SCH ×3 (09:04→20:47)
[2019-05-30] MEDS: FUROSEMIDE 10 MG/ML 4 ML VIAL IV SCH ×2 (09:20→16:22)
[2019-05-30] MEDS: ALPRAZolam 0.5 MG TAB PO PRN (17:09)
--- NOTE | 2019-05-30 20:04 | PN ---
PROGRESS NOTE DATE OF SERVICE: 05/30/2019 This 69-year-old gentleman was admitted with CHF acute exacerbation, also had significant valvular lesions. The patient is being closely monitored at this time. The most recent chest x-ray which was done today and reviewed by me personally showed evidence of CHF and bilateral pleural effusion also. The patient is on IV Lasix. The patient is on slightly negative output at this time. Intake and output balanced at this time. No chest pain. No palpitations. PAST MEDICAL HISTORY: Reviewed. REVIEW OF SYSTEMS: CARDIOVASCULAR SYSTEM: As mentioned earlier. RESPIRATORY: As mentioned earlier. GI: As mentioned earlier. : No dysuria. NERVOUS SYSTEM: No numbness or weakness. CURRENT MEDICATIONS: 1. Tylenol p.r.n. 2. Hydrocodone 5 mg q.6h p.r.n. 3. DuoNeb q.i.d. and p.r.n. 4. Xanax 0.5 q.8. 5. Artificial Tears. 6. Aspirin 81 mg daily. 7. Tessalon 100 mg p.o. t.i.d. 8. Dulcolax 10 mg daily. 9. Iron sulfate 320 mg. 10.Lasix 40 mg IV q.8h. 11.Milk of magnesium. 12.Melatonin 3 mg at bedtime. 13.Lopressor 25 mg p.o. t.i.d. 14.Protonix 40 mg p.o. daily. 15.MiraLAX 17 g. 16.K-Dur 20 mg p.o. daily. 17.Senokot-S 1 tablet p.o. b.i.d. 18.Fleets enema. 19.Ultram 25 mg p.o. q.i.d. PHYSICAL EXAMINATION: Alert and oriented x3. Pulse 95, blood pressure 106/55, respirations 16, temperature 97.7, pulse ox 100% on 2 L. HEENT: Conjunctivae normal. Oral mucosa moist. NECK: No jugular venous distention. No lymph node enlargement. CARDIOVASCULAR: S1, S2. RESPIRATORY: Diminished breath sounds at the bases. Scattered rhonchi and crackles. Expiratory wheezing also present. ABDOMEN: Soft, nontender. No mass palpable. LEGS: Bilateral leg edema. NERVOUS SYSTEM: No focal deficits. LABS: WBC 6.8, hemoglobin 9.3, sodium 131, creatinine is 1.32. ASSESSMENT: 1. Congestive heart failure acute exacerbation with acute on chronic diastolic dysfunction, ejection fraction 50-55%. 2. Severe mitral regurgitation, possible paravalvular leak. 3. History of recent gastrointestinal bleed with acute on chronic gastrointestinal bleed with small intestinal AVMs. 4. Acute renal failure, prerenal, acute tubular necrosis. 5. History of mitral prolapse and repair. 6. History of atrial fibrillation, chronic, persistent. 7. History of chest pain, angina. 8. Hypertension. 9. Hyperlipidemia. 10.History of myocardial infarction. 11.History of intravascular hemolytic anemia. 12.History of coronary artery disease, coronary artery bypass graft, stent. 13.History of tonsillectomy. 14.History of anxiety. 15.Remote history of nicotine dependence. 16.FULL CODE. RECOMMENDATIONS AND DISCUSSION: I recommend to continue current medications. continue symptomatic treatment. The patient, as mentioned earlier, we had a detailed discussion with the code status. The patient and family at the bedside. The sister and daughter are from [place] so currently the patient is leaning towards no code, no CPR, no vent. However, he also expressed wishes to obtain a 2nd opinion, possibly at the [facility]. We will discuss with the director of social media marketing and rn case management tomorrow and arrange for the same. Otherwise, we will continue to monitor. Prognosis guarded. Further recommendations to follow. MMODL / IJN: [id number] /
[2019-05-30] MEDS: MELATONIN 3 MG TABLET PO SCH (20:47)
[2019-05-31] MEDS: FUROSEMIDE 10 MG/ML 4 ML VIAL IV SCH ×2 (00:34→08:35)
[2019-05-31] MEDS: traMADol 50 MG TAB PO SCH ×3 (00:34→14:40)
[2019-05-31] MEDS: ALPRAZolam 0.5 MG TAB PO PRN (05:31)
[2019-05-31] MEDS: HYDROcodone/APAP 5-325MG 1 EACH TAB PO PRN (05:34)
[2019-05-31] MEDS: ARTIFICIAL TEARS-HYPROMELLOSE DROPS 15 ML BTL BOTH EYES SCH ×2 (08:35→11:40)
[2019-05-31] MEDS: ASPIRIN 81 MG PO SCH (08:36)
[2019-05-31] MEDS: POTASSIUM CHLORIDE ER 20 MEQ TAB.ER PO SCH (08:36)
[2019-05-31] MEDS: FERROUS SULFATE 325 MG TAB PO SCH (08:36)
[2019-05-31] MEDS: SENNOSIDES-DOCUSATE SODIUM 1 EACH TAB PO SCH (08:36)
[2019-05-31] MEDS: METOPROLOL TARTRATE 25 MG TAB PO SCH (08:36)
[2019-05-31] MEDS: PANTOPRAZOLE 40 MG TABLET PO SCH (08:37)
[2019-05-31] MEDS: POLYETHYLENE GLYCOL 3350 17 GM POWD.PACK PO SCH (08:37)
[2019-05-31] MEDS: MINERAL OIL-WHITE PETROLATUM 120 GM JAR TOPICAL SCH (08:38)
[2019-05-31 11:57] VITALS: BP 113/73; PULSE 93; RESP 17; TEMP 97.9
--- NOTE | 2019-05-31 20:14 | PN ---
PROGRESS NOTE DATE OF SERVICE: 05/31/2019 This 69-year-old gentleman admitted with CHF acute exacerbation, has had multiple hospital admissions. The patient also had apparently significant valvular regurgitation, perivalvular leak also. The patient was recommended hospice from [facility], however, the family and the patient wants to proceed and the hospice was canceled at this time. The patient will be closely monitored. Recommended to obtain a second opinion from the [facility] on an expedited basis to determine the further course of action. Otherwise, chest x-ray which was reviewed today by me showed significant CHF, continued and fluid also. PAST MEDICAL: Reviewed. REVIEW OF SYSTEMS: CARDIOVASCULAR: No angina. RESPIRATORY: As mentioned earlier. GI: As mentioned earlier. : No dysuria or retention. NERVOUS SYSTEM: No numbness or weakness. CURRENT MEDICATIONS: 1. Tylenol p.r.n. 2. [place]. 3. DuoNeb. 4. Xanax. 5. Artificial Tears. 6. Aspirin. 7. Tessalon Perles. 8. Iron sulfate. 9. Lasix. 10.Melatonin. 11.Lopressor. 12.Protonix. 13.MiraLAX. 14.K-Dur. 15.Senokot-S. PHYSICAL EXAM: Patient is alert, oriented x3. Pulse is 93, blood pressure 130/70, respirations 17, temperature 97.9, pulse ox 100% on 2 L HEENT: Conjunctivae normal. Oral mucosa moist. NECK: No jugular venous distention. No lymph node enlargement. CARDIOVASCULAR: S1, S2. RESPIRATORY: Diminished breath sounds at the bases. Bilateral scattered rhonchi and crackles. ABDOMEN: Soft, nontender. LEGS: No edema, no swelling. NERVOUS SYSTEM: No focal deficits. LABS: WBC 6.2, hemoglobin 10.3, sodium 130, and creatinine is 3.13. ASSESSMENT: 1. Congestive heart failure acute exacerbation with acute on chronic diastolic dysfunction, ejection fraction 50-55%. 2. Severe mitral regurgitation with possible paravalvular leak. 3. History of recent gastrointestinal bleed with chronic gastrointestinal bleed with small intestinal AVMs. 4. Recurrent bleeding from the AVM and, hence, Eliquis is on hold. 5. Acute renal failure, prerenal acute tubular necrosis. 6. History of mitral valve prolapse and repair. 7. History of atrial fibrillation, chronic, persistent. 8. History of chest pain and angina. 9. Hypertension. 10.Hyperlipidemia. 11.History of myocardial infarction. 12.History of intravascular hemolytic anemia. 13.History of coronary artery disease, coronary artery bypass graft, stent. 14.History of tonsillectomy. 15.History of anxiety. 16.Remote history of nicotine dependence. 17.NO CODE, NO CPR, NO VENT. PLAN AND DISCUSSION: As mentioned earlier, I had a detailed discussion with the family members and the patient on multiple occasions and this 69-year-old gentleman would like to have second opinion. I recommend the case operator to get in touch with the [facility] and obtain a second opinion regarding the significant paravalvular leak and mitral regurgitation and the feasibility of any surgical treatment. Otherwise, we will continue to monitor, continue the diuretics. Patient still has persistent CHF. Closely follow with Cardiology. Prognosis guarded because of multiple complex medical issues. Further recommendations to follow. See orders for details. MMODL / IJN: [id number] / MTDD
== END 2019-05-31 15:00 | DRG 291 ==
LOC: EC 15:04 → 5NMEDONC 17:05
PROVIDERS: ADMIT Hospitalist; ATTEND Hospitalist
DX: I11.0 Hypertensive heart disease with heart failure (principal); N17.0 Acute kidney failure with tubular necrosis; I48.19 Other persistent atrial fibrillation; Z51.5 Encounter for palliative care; I50.33 Acute on chronic diastolic (congestive) heart failure; F41.9 Anxiety disorder, unspecified; I34.0 Nonrheumatic mitral (valve) insufficiency; I25.10 Atherosclerotic heart disease of native coronary artery without angina pectoris; Z66 Do not resuscitate; E78.5 Hyperlipidemia, unspecified; Z82.49 Family history of ischemic heart disease and other diseases of the circulatory system; I25.2 Old myocardial infarction; Z79.899 Other long term (current) drug therapy; Z79.01 Long term (current) use of anticoagulants; Z79.82 Long term (current) use of aspirin; Z88.8 Allergy status to other drugs, medicaments and biological substances; Z95.5 Presence of coronary angioplasty implant and graft; Z95.1 Presence of aortocoronary bypass graft; Z87.891 Personal history of nicotine dependence; Z90.89 Acquired absence of other organs; Z98.890 Other specified postprocedural states
CPT/HCPCS: 36415; 71045; 80048; 81003; 82272; 83605; 83735; 83880; 85025; 85610; 85730; 86850; 86900; 86901; 93005; 93306; 94640; 94760; 96374; 99284

== ENCOUNTER 2019-05-31 15:01 | Inpatient (IN) | payer MEDICARE, OTHER ==
[2019-05-31] MEDS: HYDROcodone/APAP 5-325MG 1 EACH TAB PO PRN ×2 (16:07→22:09)
[2019-05-31] MEDS ORDERED: ARTIFICIAL TEARS-HYPROMELLOSE DROPS 15 ML BTL BOTH EYES PRN (16:36)
[2019-05-31] MEDS ORDERED: IPRATROPIUM-ALBUTEROL 3 ML NEB INHALATION PRN (16:36)
[2019-05-31] MEDS ORDERED: ALPRAZolam 0.5 MG TAB PO PRN (16:36)
[2019-05-31] MEDS ORDERED: BISACODYL 10 MG SUPP RECTAL PRN (16:36)
[2019-05-31] MEDS ORDERED: BENZONATATE 100 MG CAP PO PRN (16:36)
[2019-05-31] MEDS ORDERED: MAGNESIUM HYDROXIDE 2,400 MG/10 ML CUP PO PRN (16:42)
[2019-05-31] MEDS: METOPROLOL TARTRATE 25 MG TAB PO SCH ×2 (17:10→22:09)
[2019-05-31] MEDS: FUROSEMIDE 10 MG/ML 4 ML VIAL IV SCH ×2 (17:10→23:07)
[2019-05-31] MEDS: ACETAMINOPHEN TAB 500 MG TAB PO PRN ×2 (17:10→23:07)
[2019-05-31] MEDS: ARTIFICIAL TEARS-HYPROMELLOSE DROPS 15 ML BTL BOTH EYES SCH (17:12)
[2019-05-31] MEDS: SENNOSIDES-DOCUSATE SODIUM 1 EACH TAB PO SCH (17:15)
[2019-05-31] MEDS: MINERAL OIL-WHITE PETROLATUM 120 GM JAR TOPICAL SCH (20:06)
[2019-05-31] MEDS: traMADol 50 MG TAB PO SCH (20:07)
[2019-05-31] MEDS ORDERED: MELATONIN 3 MG TABLET PO SCH (21:00)
[2019-06-01] MEDS: traMADol 50 MG TAB PO SCH ×3 (01:42→15:20)
[2019-06-01] MEDS: HYDROcodone/APAP 5-325MG 1 EACH TAB PO PRN ×3 (04:08→16:56)
[2019-06-01] MEDS: ACETAMINOPHEN TAB 500 MG TAB PO PRN (05:58)
[2019-06-01] MEDS ORDERED: ASPIRIN 81 MG PO SCH (08:00)
[2019-06-01] MEDS ORDERED: POTASSIUM CHLORIDE ER 20 MEQ TAB.ER PO SCH (08:00)
[2019-06-01] MEDS ORDERED: PANTOPRAZOLE 40 MG TABLET PO SCH (08:00)
[2019-06-01] MEDS ORDERED: FERROUS SULFATE 325 MG TAB PO SCH (08:00)
[2019-06-01 08:37] LABS: Calcium 8.1 mg/dL (8.4-10.2)
[2019-06-01 08:57] LABS: Anisocytosis Slight; Basophils % (A) 1 %; Eosinophils # (A) 0.4 k/uL (0-0.7); Eosinophils % (A) 5 %; HCT 34.6 % (39.0-53.0); HGB 9.7 gm/dL (13.0-17.5); Hypochromasia Marked; Lymphocytes % (A) 13 %; MCV 89.5 fL (80.0-100.0); Mean Platelet Volume 9.4; Monocytes # (A) 0.5 k/uL (0-1.0); Monocytes % (A) 7 %; Neutrophils # (A) 5.2 k/uL (1.3-7.7); Neutrophils % (A) 72 %; Platelet Count 336 k/uL (150-450); Poikilocytosis Moderate; RBC 3.87 m/uL (4.30-5.90); RDW 17.7 % (11.5-15.5); WBC 7.3 k/uL (3.8-10.6)
[2019-06-01] MEDS: FUROSEMIDE 10 MG/ML 4 ML VIAL IV SCH ×2 (08:58→15:46)
[2019-06-01] MEDS ORDERED: POLYETHYLENE GLYCOL 3350 17 GM POWD.PACK PO SCH (09:00)
[2019-06-01] MEDS: SENNOSIDES-DOCUSATE SODIUM 1 EACH TAB PO SCH (09:51)
[2019-06-01] MEDS: METOPROLOL TARTRATE 25 MG TAB PO SCH ×2 (09:51→15:46)
[2019-06-01] MEDS: ARTIFICIAL TEARS-HYPROMELLOSE DROPS 15 ML BTL BOTH EYES SCH ×2 (09:57→13:18)
[2019-06-01] MEDS: MINERAL OIL-WHITE PETROLATUM 120 GM JAR TOPICAL SCH (09:58)
[2019-06-01 11:34] LABS: Polychromasia Present
--- NOTE | 2019-06-01 11:57 | P.DS ---
Providers Date of admission: 05/31/19 15:17 Expected date of discharge: 06/01/19 Attending physician: Yudith Vicente Consults: 05/31/19 16:48 Consult Physician Routine Consulting Provider: Lizbeth More Consult Reason/Comments: chf Do you want consulting provider notified?: Already Contacted Primary care physician: [facility] Course: Final diagnosis Congestive heart failure acute exacerbation with acute on chronic diastolic dysfunction, ejection fraction 50-55% Severe mitral regurgitation with possible paravalvular leak History of recent gastrointestinal bleed with chronic gastrointestinal bleed with small intestinal AVMs Recurrent bleeding from AVM and hence anticoagulation is on hold Acute renal failure, pre-renal acute tubular necrosis History of mitral valve prolapse and repair history of atrial fibrillation, chronic, persistent History of chest pain and angina Hypertension Hyperlipidemia History of myocardial infarction history of intravascular hemolytic anemia History of coronary artery disease, coronary artery bypass grafting, stent History of tonsillectomy history of anxiety Remote history of nicotine dependence No code, no CPR, no vent Discharge disposition Patient is being discharged in a stable condition with guarded prognosis to [facility] for continued PT/OT therapy as he is a resident there. Patient will follow-up with Dr. Sosa in the outpatient setting upon discharge. Patient will continue on a short course of oral antibiotics in the form of Keflex 3 times daily for the next 10 days and then may discontinue. Total time taken is 35 minutes. History of present illness This is a 69-year-old male who was recently admitted with congestive heart failure acute exacerbation and was being closely monitored. Patient apparently has significant valvular regurgitation with perivalvular leak and has an appointment with [facility] tomorrow for a second opinion and possible further course of action. Patient was treated with IV Lasix and will continue with oral Lasix 40 mg twice a day in the outpatient setting. Patient will also complete a short course of oral antibiotics in the form of Keflex 500 mg 3 times daily for the next 10 days. Patient was on anticoagulation in the form of Eliquis and is currently on hold for recent readmissions due to GI bleeds. Currently patient's condition is stable and is ready for discharge today. No reports of chest pain, worsening shortness of breath, or palpitations. Patient is afebrile. No reports of nausea or vomiting and patient is tolerating diet. Guarded prognosis. On exam vital signs are stable. Temp is 97.8F, pulse is 95, respirations are 20, blood pressure 103/60, oxygen saturation is 100% % on 2.5 L via nasal cannula. Cardio S1, S2 are muffled. Respiratory system shows diminished breath sounds at the bases along with a few scattered rhonchi noted. Abdomen is soft and nontender. Nervous system shows mild diffuse weakness. Please refer to medication reconciliation sheet for a list of medications. Patient Condition at Discharge: Stable Plan - Discharge Summary Discharge Rx Participant: Yes New Discharge Prescriptions: New Cephalexin [Keflex] 500 mg PO Q8HR 10 Days #30 cap Furosemide [Lasix] 40 mg PO BID 30 Days #60 tablet Metoprolol Tartrate [Lopressor] 25 mg PO TID 30 Days #90 tab HYDROcodone/APAP 5-325MG [[place] 5-325] 1 each PO Q6HR PRN #2 tab PRN Reason: Pain Acetaminophen Tab [Tylenol] 500 mg PO Q6HR PRN tab PRN Reason: Fever And/ Or Pain Continue Polyvinyl Alcohol/Povidone [Clear Eyes Natural Tears Drop] 1 drop BOTH EYES Q2H PRN PRN Reason: Dry Eye(S) Polyethylene Glycol 3350 [Miralax] 17 gm PO DAILY@0800 Magnesium Hydroxide [Milk of Magnesia Concentrate] 7,200 mg PO DAILY PRN PRN Reason: Constipation Ipratropium-Albuterol Nebulize [Duoneb 0.5 mg-3 mg/3 ml Soln] 3 ml INHALATION RT-Q8H PRN PRN Reason: Shortness Of Breath/WHEEZING Hyoscyamine Sulfate [Levsin] 0.125 mg PO Q4H PRN PRN Reason: STOMACH CRAMPING Na Phos,M-B/Na Phos,Di-Ba [Fleet Adult] 133 ml RECTAL ONCE PRN PRN Reason: Constipation Bisacodyl [Dulcolax] 10 mg RECTAL DAILY PRN PRN Reason: Constipation Benzonatate [Tessalon Perles] 100 mg PO TID PRN PRN Reason: Cough Sennosides/Docusate Sodium [La Colace] 1 tab PO BID@0800,1700 Artificial Tears-Hypromellose [Artificial Tear Drops] 1 drop BOTH EYES TID@0800,1200,1700 Pantoprazole Sodium [Protonix] 40 mg PO DAILY@0800 Ferrous Gluconate 324 mg PO DAILY@0800 Bumetanide [BUMEX] 3 mg PO BID@0900,1700 Artificial Tears-Hypromellose [Artificial Tear Drops] 1 drop BOTH EYES DAILY PRN PRN Reason: Dry Eye(S) Polyethylene Glycol 3350 [Miralax] 17 gm PO DAILY PRN PRN Reason: Constipation Melatonin 3 mg PO HS@2100 Aspirin 81 mg PO DAILY@0800 Potassium Chloride ER [K-Dur 20] 20 meq PO DAILY@0800 Eucerin Cream 1 applic TOPICAL BID ALPRAZolam [Xanax] 0.5 mg PO Q8H PRN #1 tab PRN Reason: Anxiety ALPRAZolam [Xanax] 0.5 mg PO DAILY@0800 #1 tab Discontinued MORPHINE ORAL EMIL CONC 20mg/mL [Roxanol Oral Soln Conc 20MG/ML] 5 mg PO Q4H PRN PRN Reason: Pain traMADol HCL 25 mg PO QID@02,08,14,20 Metoprolol Tartrate [Lopressor] 12.5 mg PO BID@0800,1700 Discharge Medication List Artificial Tears-Hypromellose [Artificial Tear Drops] 1 drop BOTH EYES TID@0800,1200,1700 05/12/19 [History] Benzonatate [Tessalon Perles] 100 mg PO TID PRN 05/12/19 [History] Bisacodyl [Dulcolax] 10 mg RECTAL DAILY PRN 05/12/19 [History] Bumetanide [BUMEX] 3 mg PO BID@0900,1700 05/12/19 [History] Ferrous Gluconate 324 mg PO DAILY@0800 05/12/19 [History] Hyoscyamine Sulfate [Levsin] 0.125 mg PO Q4H PRN 05/12/19 [History] Ipratropium-Albuterol Nebulize [Duoneb 0.5 mg-3 mg/3 ml Soln] 3 ml INHALATION RT-Q8H PRN 05/12/19 [History] Magnesium Hydroxide [Milk of Magnesia Concentrate] 7,200 mg PO DAILY PRN 05/12/19 [History] Na Phos,M-B/Na Phos,Di-Ba [Fleet Adult] 133 ml RECTAL ONCE PRN 05/12/19 [Hist ory] Pantoprazole Sodium [Protonix] 40 mg PO DAILY@0800 05/12/19 [History] Polyethylene Glycol 3350 [Miralax] 17 gm PO DAILY@0800 05/12/19 [History] Polyvinyl Alcohol/Povidone [Clear Eyes Natural Tears Drop] 1 drop BOTH EYES Q2H PRN 05/12/19 [History] Sennosides/Docusate Sodium [La Colace] 1 tab PO BID@0800,1700 05/12/19 [History] Artificial Tears-Hypromellose [Artificial Tear Drops] 1 drop BOTH EYES DAILY PRN 05/27/19 [History] Aspirin 81 mg PO DAILY@0800 05/27/19 [History] Eucerin Cream 1 applic TOPICAL BID 05/27/19 [History] Melatonin 3 mg PO HS@2100 05/27/19 [History] Polyethylene Glycol 3350 [Miralax] 17 gm PO DAILY PRN 05/27/19 [History] Potassium Chloride ER [K-Dur 20] 20 meq PO DAILY@0800 05/27/19 [History] ALPRAZolam [Xanax] 0.5 mg PO DAILY@0800 #1 tab 06/01/19 [Rx] ALPRAZolam [Xanax] 0.5 mg PO Q8H PRN #1 tab 06/01/19 [Rx] Acetaminophen Tab [Tylenol] 500 mg PO Q6HR PRN tab 06/01/19 [Rx] Cephalexin [Keflex] 500 mg PO Q8HR 10 Days #30 cap 06/01/19 [Rx] Furosemide [Lasix] 40 mg PO BID 30 Days #60 tablet 06/01/19 [Rx] HYDROcodone/APAP 5-325MG [[place] 5-325] 1 each PO Q6HR PRN #2 tab 06/01/19 [Rx] Metoprolol Tartrate [Lopressor] 25 mg PO TID 30 Days #90 tab 06/01/19 [Rx] Follow up Appointment(s)/Referral(s): Dixon Sosa DO [Primary Care Provider] - 1 Week Activity/Diet/Wound Care/Special Instructions: pt has an appt at [facility] for a second opinion with trey Torres on 06/02 at 12:55 Patient is going to [place] Activity as tolerated Follow-up with Dr. sosa upon discharge Continue antibiotics until finished Continue current diet Discharge Disposition: TRANSFER TO SNF/ECF
[2019-06-01 12:59] VITALS: BMI 30.4
[2019-06-01] MEDS ORDERED: ONDANSETRON 4 MG/2 ML VIAL IVP PRN (13:01)
[2019-06-01 13:12] VITALS: BP 115/79; PULSE 88; RESP 14; TEMP 97.4
--- NOTE | 2019-06-01 15:48 | P.CRDCN ---
History of Present Illness History of present illness: This is Julieth Kmainski PA-C dictating a consult on this patient The patient was interviewed and examined by me as well as by Dr. Hui Case discussed with Dr. Hui and he agrees with the plan of care HPI Patient is a 69-year-old male with a past medical history of CAD status post CABG, valvular heart disease status post mitral valve repair, chronic diastolic heart failure, chronic persistent atrial fibrillation, hypertension, and dyslipidemia who presented with complaints of shortness of breath and worsening lower extremity edema. He is a patient of Dr. Solano. For the last couple days he has had worsening lower extremity edema and has been progressively more short of breath. Upon presentation to the hospital blood pressure was 113/73, pulse was in the 90s. Labs are significant for sodium of 130, BUN 47, creatinine 1.92, hemoglobin 9.7. The patient was started on IV Lasix. The plan is for him to be evaluated at the [facility] for second opinion regarding management of his valvular heart disease. Patient seen and examined sitting up in the chair. States his breathing has improved somewhat. No chest pain. ROS: No fevers, chills or rigors, no cough, phlegm or expectoration, no nausea, vomiting or diarrhea, no hematuria, dysuria, no musculoskeletal complaints, no strokes or seizures, no skin lesions. EXAMINATION: Patient is afebrile, pulse in the 80s and 90s, respirations 14, blood pressure 115/79, oxygen saturation 100% on 2 L nasal cannula Patient seen and examined sitting in the chair, in no acute distress Lungs are diminished at the bases with crackles bilaterally Heart is irregular, systolic murmur noted 1-2+ pitting edema bilaterally REVIEW OF LABS, ECG & MEDICAL DATA WBC 7.3, hemoglobin 9.7, platelets 336, potassium 5.0, BUN 47, creatinine 1.92 Echocardiogram on May 28 showed EF 50-55%, severe MR with mitral annuloplasty ring in place IMPRESSION / ASSESSMENT: Acute on chronic diastolic heart failure Valvular heart disease status post mitral valve repair CAD status post CABG Chronic persistent atrial fibrillation, rate controlled, not on anticoagulation secondary to history of GI bleeding Hypertension Dyslipidemia Anemia Acute kidney injury PLAN: Continue cautious diuresis and monitor BMP closely He has appointment at the [facility] tomorrow for further evaluation and management of his valvular heart disease Past Medical History Past Medical History: Atrial Fibrillation, Chest Pain / Angina, Heart Failure, Hyperlipidemia, Hypertension, Myocardial Infarction (ND), Mitral Valve Prolapse (MVP) Additional Past Medical History / Comment(s): hx closed head injury, mild he will lysis likely related to his mitral valve repair and ring placement causing intravascular hemolytic lysis. Was seen by hematology back in September 2013 hospitalization. CABG 08/27/2013. anemia Last Myocardial Infarction Date:: 2004 History of Any Multi-Drug Resistant Organisms: None Reported Past Surgical History: Coronary Bypass/CABG, Heart Catheterization With Stent, Tonsillectomy Additional Past Surgical History / Comment(s): mitral valve repair Past Anesthesia/Blood Transfusion Reactions: Previous Problems w/ Anesthesia Additional Past Anesthesia/Blood Transfusion Reaction / Comment(s): confusion and lost memory from anesthesia Date of Last Stent Placement:: 2004 Past Psychological History: Anxiety Smoking Status: Former smoker Past Alcohol Use History: None Reported Past Drug Use History: None Reported - Past Family History Father Family Medical History: Myocardial Infarction (ND) Additional Family Medical History / Comment(s): Father of a heart attack at age 55 Medications and Allergies Home Medications Medication Instructions Recorded Confirmed Type Artificial Tears-Hypromellose 1 drop BOTH EYES TID@0800,1200,1700 05/12/19 05/31/19 History [Artificial Tear Drops] Benzonatate [Tessalon Perles] 100 mg PO TID PRN 05/12/19 05/31/19 History Bisacodyl [Dulcolax] 10 mg RECTAL DAILY PRN 05/12/19 05/31/19 History Bumetanide [BUMEX] 3 mg PO BID@0900,1700 05/12/19 05/31/19 History Ferrous Gluconate 324 mg PO DAILY@0800 05/12/19 05/31/19 History Hyoscyamine Sulfate [Levsin] 0.125 mg PO Q4H PRN 05/12/19 05/31/19 History Ipratropium-Albuterol Nebulize 3 ml INHALATION RT-Q8H PRN 05/12/19 05/31/19 History [Duoneb 0.5 mg-3 mg/3 ml Soln] Magnesium Hydroxide [Milk of 7,200 mg PO DAILY PRN 05/12/19 05/31/19 History Magnesia Concentrate] Na Phos,M-B/Na Phos,Di-Ba [Fleet 133 ml RECTAL ONCE PRN 05/12/19 05/31/19 History Adult] Pantoprazole Sodium [Protonix] 40 mg PO DAILY@0800 05/12/19 05/31/19 History Polyethylene Glycol 3350 [Miralax] 17 gm PO DAILY@0800 05/12/19 05/31/19 History Polyvinyl Alcohol/Povidone [Clear 1 drop BOTH EYES Q2H PRN 05/12/19 05/31/19 History Eyes Natural Tears Drop] Sennosides/Docusate Sodium [La 1 tab PO BID@0800,1700 05/12/19 05/31/19 History Colace] Artificial Tears-Hypromellose 1 drop BOTH EYES DAILY PRN 05/27/19 05/31/19 History [Artificial Tear Drops] Aspirin 81 mg PO DAILY@0800 05/27/19 05/31/19 History Eucerin Cream 1 applic TOPICAL BID 05/27/19 05/31/19 History Melatonin 3 mg PO HS@2100 05/27/19 05/31/19 History Polyethylene Glycol 3350 [Miralax] 17 gm PO DAILY PRN 05/27/19 05/31/19 History Potassium Chloride ER [K-Dur 20] 20 meq PO DAILY@0800 05/27/19 05/31/19 History ALPRAZolam [Xanax] 0.5 mg PO DAILY@0800 #1 tab 06/01/19 Rx ALPRAZolam [Xanax] 0.5 mg PO Q8H PRN #1 tab 06/01/19 Rx Acetaminophen Tab [Tylenol] 500 mg PO Q6HR PRN tab 06/01/19 Rx Cephalexin [Keflex] 500 mg PO Q8HR 10 Days #30 cap 06/01/19 Rx Furosemide [Lasix] 40 mg PO BID 30 Days #60 tablet 06/01/19 Rx HYDROcodone/APAP 5-325MG [[place] 1 each PO Q6HR PRN #2 tab 06/01/19 Rx 5-325] Metoprolol Tartrate [Lopressor] 25 mg PO TID 30 Days #90 tab 06/01/19 Rx Allergies Allergy/AdvReac Type Severity Reaction Status Date / Time atorvastatin Allergy Unknown Verified 05/27/19 19:06 digoxin Allergy Unknown Verified 05/27/19 19:06 heparin Allergy Unknown Verified 05/27/19 19:06 warfarin [From Coumadin] Allergy Unknown Verified 05/27/19 19:06 lisinopril AdvReac Intermediate Unknown Verified 05/27/19 19:06 Physical Exam Vitals: Vital Signs Temp Pulse Pulse Resp BP BP Pulse Ox 06/01/19 13:50 88 14 06/01/19 13:10 97.4 F L 88 14 115/79 100 06/01/19 10:47 97.8 F 95 20 103/60 100 06/01/19 05:20 98.1 F 98 16 100/70 100 05/31/19 21:19 97.5 F L 93 18 90/58 100 05/31/19 17:11 88 18 05/31/19 17:10 97.9 F 93 18 113/73 100 05/31/19 17:01 91 18 Intake and Output 06/01/19 06/01/19 06/01/19 06:59 14:59 22:59 Intake Total 300 237 Output Total 215 Balance 300 22 Intake: Oral 300 237 Output: Urine 215 Other: Voiding Method Urinal Urinal # Voids 1 Weight 96.247 kg 96.247 kg Results 06/01/19 07:54 06/01/19 07:54 CBC 06/01/19 Range/Units 07:54 WBC 7.3 (3.8-10.6) k/uL RBC 3.87 L (4.30-5.90) m/uL Hgb 9.7 L (13.0-17.5) gm/dL Hct 34.6 L (39.0-53.0) % Plt Count 336 (150-450) k/uL Comprehensive Metabolic Panel 06/01/19 Range/Units 07:54 Sodium 130 L (137-145) mmol/L Potassium 5.0 (3.5-5.1) mmol/L Chloride 99 (98-107) mmol/L Carbon Dioxide 23 (22-30) mmol/L BUN 47 H (9-20) mg/dL Creatinine 1.92 H (0.66-1.25) mg/dL Glucose 103 H (74-99) mg/dL Calcium 8.1 L (8.4-10.2) mg/dL Current Medications Generic Name Dose Route Start Last Admin Trade Name Freq PRN Reason Stop Dose Admin Acetaminophen 500 mg 05/31/19 16:42 02/18/20 05:58 Tylenol Tab PO 500 mg Q6HR PRN Administration Fever and/ or Pain Hydrocodone Bitart/Acetaminophen 1 each 05/31/19 15:48 06/01/19 09:48 [place] 5-325 PO 1 each Q6HR PRN Administration Pain Albuterol/Ipratropium 3 ml 05/31/19 16:36 05/31/19 17:01 Duoneb 0.5 Mg-3 Mg/3 Ml Soln INHALATION 3 ml RT-Q8H PRN Administration Shortness Of Breath/WHEEZING Alprazolam 0.5 mg 05/31/19 16:36 Xanax PO Q8H PRN Anxiety Artificial Tears 1 drops 05/31/19 16:36 Artificial Tear Drops BOTH EYES DAILY PRN Dry Eye(s) Artificial Tears 1 drops 05/31/19 17:00 06/01/19 13:18 Artificial Tear Drops BOTH EYES Not Given TID@0800,1200,1700 [facility] Aspirin 81 mg 06/01/19 08:00 06/01/19 09:54 Aspirin PO 81 mg DAILY@0800 [facility] Administration Benzonatate 100 mg 05/31/19 16:36 Tessalon Perles PO TID PRN Cough Bisacodyl 10 mg 05/31/19 16:36 Dulcolax RECTAL DAILY PRN Constipation Ferrous Sulfate 325 mg 06/01/19 08:00 06/01/19 09:51 Feosol PO 325 mg DAILY@0800 [facility] Administration Furosemide 40 mg 05/31/19 16:45 06/01/19 15:46 Lasix IV 40 mg Q8HR [facility] Administration Magnesium Hydroxide 2,400 mg 05/31/19 16:42 Milk Of Magnesia PO DAILY PRN Constipation Melatonin 3 mg 05/31/19 21:00 05/31/19 23:56 Melatonin PO 3 mg HS@2100 [facility] Administration Metoprolol Tartrate 25 mg 05/31/19 16:45 06/01/19 15:46 Lopressor PO 25 mg TID [facility] Administration Multi-Ingred Cream/Lotion/Oil/Oint 1 applic 05/31/19 21:00 06/01/19 09:58 Eucerin Cream TOPICAL 1 applic BID VALERIE Administration Ondansetron HCl 4 mg 06/01/19 13:01 06/01/19 13:07 Zofran IVP 4 mg Q6HR PRN Administration Nausea And Vomiting Pantoprazole Sodium 40 mg 06/01/19 08:00 06/01/19 09:50 Protonix PO 40 mg DAILY@0800 VALERIE Administration Polyethylene Glycol 17 gm 06/01/19 09:00 06/01/19 09:54 Miralax PO 17 gm DAILY VALERIE Administration Potassium Chloride 20 meq 06/01/19 08:00 06/01/19 09:54 K-Dur 20 PO 20 meq DAILY@0800 VALERIE Administration Senna/Docusate Sodium 1 each 05/31/19 17:00 06/01/19 09:51 Senokot-S PO 1 each BID@0800,1700 VALERIE Administration Tramadol HCl 25 mg 05/31/19 20:00 06/01/19 15:20 Ultram PO Not Given QID@02,08,14,20 [facility] Intake and Output 06/01/19 06/01/19 06/01/19 06:59 14:59 22:59 Intake Total 300 237 Output Total 215 Balance 300 22 Intake: Oral 300 237 Output: Urine 215 Other: Voiding Method Urinal Urinal # Voids 1 Weight 96.247 kg 96.247 kg Patient Weight 06/02/19 06:59 Weight 96.247 kg 06/01/19 07:54 06/01/19 07:54
== END 2019-06-01 17:20 | DRG 291 ==
LOC: 5NMEDONC 15:17
PROVIDERS: ADMIT Hospitalist; ATTEND Hospitalist
DX: I11.0 Hypertensive heart disease with heart failure (principal); N17.0 Acute kidney failure with tubular necrosis; I48.19 Other persistent atrial fibrillation; I50.33 Acute on chronic diastolic (congestive) heart failure; E78.5 Hyperlipidemia, unspecified; I25.10 Atherosclerotic heart disease of native coronary artery without angina pectoris; I25.2 Old myocardial infarction; I34.1 Nonrheumatic mitral (valve) prolapse; F41.9 Anxiety disorder, unspecified; K31.819 Angiodysplasia of stomach and duodenum without bleeding; Z79.82 Long term (current) use of aspirin; Z79.899 Other long term (current) drug therapy; Z87.891 Personal history of nicotine dependence; Z95.1 Presence of aortocoronary bypass graft; Z95.5 Presence of coronary angioplasty implant and graft; Z87.820 Personal history of traumatic brain injury; Z88.8 Allergy status to other drugs, medicaments and biological substances; Z66 Do not resuscitate; Z82.49 Family history of ischemic heart disease and other diseases of the circulatory system
CPT/HCPCS: 80048; 85025; 94640

== ENCOUNTER 2019-06-02 11:31 | Inpatient (IN) | payer MEDICARE, OTHER ==
[2019-06-02] MEDS ORDERED: ASPIRIN 81 MG PO STA (11:48)
[2019-06-02] MEDS ORDERED: NITROGLYCERIN OINT 1 INCH/GM PACKET TOPICAL STA (11:48)
--- NOTE | 2019-06-02 11:51 | ED ---
General Adult HPI - General Chief complaint: Chest Pain Stated complaint: Chest pain Time Seen by Provider: 06/02/19 11:33 Source: patient, EMS, RN notes reviewed Mode of arrival: EMS Limitations: no limitations - History of Present Illness Initial comments: Patient is a pleasant 69-year-old male presenting to the emergency Department with complaints of chest discomfort. Onset of symptoms was this morning. Discomfort has improved with nitroglycerin and is now 4-5/10. Discomfort is difficult to describe it does radiate to left arm. Patient does have history of previous cardiac problems with similar symptoms. Patient does have some mild associated dyspnea. No nausea or diaphoresis. Patient does have leg swelling that is chronic and unchanged. No calf pain. Patient also has some abdominal swelling. 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 - Related Data Home Medications Medication Instructions Recorded Confirmed Artificial Tears-Hypromellose 1 drop BOTH EYES TID@0800,1200,1700 05/12/19 05/31/19 [Artificial Tear Drops] Benzonatate [Tessalon Perles] 100 mg PO TID PRN 05/12/19 05/31/19 Bisacodyl [Dulcolax] 10 mg RECTAL DAILY PRN 05/12/19 05/31/19 Bumetanide [BUMEX] 3 mg PO BID@0900,1700 05/12/19 05/31/19 Ferrous Gluconate 324 mg PO DAILY@0800 05/12/19 05/31/19 Hyoscyamine Sulfate [Levsin] 0.125 mg PO Q4H PRN 05/12/19 05/31/19 Ipratropium-Albuterol Nebulize 3 ml INHALATION RT-Q8H PRN 05/12/19 05/31/19 [Duoneb 0.5 mg-3 mg/3 ml Soln] Magnesium Hydroxide [Milk of 7,200 mg PO DAILY PRN 05/12/19 05/31/19 Magnesia Concentrate] Na Phos,M-B/Na Phos,Di-Ba [Fleet 133 ml RECTAL ONCE PRN 05/12/19 05/31/19 Adult] Pantoprazole Sodium [Protonix] 40 mg PO DAILY@0800 05/12/19 05/31/19 Polyethylene Glycol 3350 [Miralax] 17 gm PO DAILY@0800 05/12/19 05/31/19 Polyvinyl Alcohol/Povidone [Clear 1 drop BOTH EYES Q2H PRN 05/12/19 05/31/19 Eyes Natural Tears Drop] Sennosides/Docusate Sodium [La 1 tab PO BID@0800,1700 05/12/19 05/31/19 Colace] Artificial Tears-Hypromellose 1 drop BOTH EYES DAILY PRN 05/27/19 05/31/19 [Artificial Tear Drops] Aspirin 81 mg PO DAILY@0800 05/27/19 05/31/19 Eucerin Cream 1 applic TOPICAL BID 05/27/19 05/31/19 Melatonin 3 mg PO HS@2100 05/27/19 05/31/19 Polyethylene Glycol 3350 [Miralax] 17 gm PO DAILY PRN 05/27/19 05/31/19 Potassium Chloride ER [K-Dur 20] 20 meq PO DAILY@0800 05/27/19 05/31/19 Previous Rx's Medication Instructions Recorded ALPRAZolam [Xanax] 0.5 mg PO DAILY@0800 #1 tab 06/01/19 ALPRAZolam [Xanax] 0.5 mg PO Q8H PRN #1 tab 06/01/19 Acetaminophen Tab [Tylenol] 500 mg PO Q6HR PRN tab 06/01/19 Cephalexin [Keflex] 500 mg PO Q8HR 10 Days #30 cap 06/01/19 Furosemide [Lasix] 40 mg PO BID 30 Days #60 tablet 06/01/19 HYDROcodone/APAP 5-325MG [[place] 1 tab PO Q6HR PRN #4 tab 06/01/19 5-325] Metoprolol Tartrate [Lopressor] 25 mg PO TID 30 Days #90 tab 06/01/19 Allergies Allergy/AdvReac Type Severity Reaction Status Date / Time atorvastatin Allergy Unknown Verified 06/02/19 13:38 digoxin Allergy Unknown Verified 06/02/19 13:38 heparin Allergy Unknown Verified 06/02/19 13:38 warfarin [From Coumadin] Allergy Unknown Verified 06/02/19 13:38 lisinopril AdvReac Intermediate Unknown Verified 06/02/19 13:38 Review of Systems ROS Statement: Those systems with pertinent positive or pertinent negative responses have been documented in the HPI. ROS Other: All systems not noted in ROS Statement are negative. Constitutional: Denies: fever Eyes: Denies: eye pain ENT: Denies: ear pain Respiratory: Reports: as per HPI. Denies: cough Cardiovascular: Reports: chest pain Endocrine: Denies: fatigue Gastrointestinal: Reports: as per HPI Genitourinary: Denies: dysuria Musculoskeletal: Denies: back pain Skin: Denies: rash Neurological: Denies: weakness Past Medical History Past Medical History: Atrial Fibrillation, Chest Pain / Angina, Heart Failure, Hyperlipidemia, Hypertension, Myocardial Infarction ([place]), Mitral Valve Prolapse (MVP) Additional Past Medical History / Comment(s): hx closed head injury, mild he will lysis likely related to his mitral valve repair and ring placement causing intravascular hemolytic lysis. Was seen by hematology back in September 2013 hospitalization. CABG 08/27/2013. anemia Last Myocardial Infarction Date:: 2004 History of Any Multi-Drug Resistant Organisms: None Reported Past Surgical History: Coronary Bypass/CABG, Heart Catheterization With Stent, Tonsillectomy Additional Past Surgical History / Comment(s): mitral valve repair Past Anesthesia/Blood Transfusion Reactions: Previous Problems w/ Anesthesia Additional Past Anesthesia/Blood Transfusion Reaction / Comment(s): confusion and lost memory from anesthesia Date of Last Stent Placement:: 2004 Past Psychological History: Anxiety Smoking Status: Former smoker Past Alcohol Use History: None Reported Past Drug Use History: None Reported - Past Family History Father Family Medical History: Myocardial Infarction ([place]) Additional Family Medical History / Comment(s): Father of a heart attack at age 55 General Exam Limitations: no limitations General appearance: alert, in no apparent distress Head exam: Present: normocephalic Eye exam: Present: normal appearance, PERRL ENT exam: Present: normal oropharynx Neck exam: Present: normal inspection Respiratory exam: Present: normal lung sounds bilaterally Cardiovascular Exam: Present: irregular rhythm Expanded Peripheral pulses: 2+: Radial (R), Radial (L), Dorsalis Pedis (R), Dorsalis Pedis (L) GI/Abdominal exam: Present: soft, distended (Mild distention), normal bowel sounds. Absent: tenderness, guarding, pulsatile mass Extremities exam: Present: pedal edema. Absent: calf tenderness Neurological exam: Present: alert Psychiatric exam: Present: normal affect, normal mood Skin exam: Present: normal color Course Vital Signs 06/02/19 06/02/19 11:38 13:32 Temperature 97.6 F Pulse Rate 109 H 102 H Respiratory 20 18 Rate Blood Pressure 91/64 91/53 O2 Sat by Pulse 96 95 Oximetry EKG Findings - EKG Comments: EKG Findings:: A. fib with RVR, rate 104. QRS 88. QT 338. QTC 444. Normal axis. Low QRS voltage. No anterior lateral ST depression as well as some inferior. Reviewed previous EKGs 05/27/19 and 05/12/19 Medical Decision Making - Medical Decision Making Patient reevaluated and resting comfortably in bed. Patient updated on results and plan. Case discussed in detail with Dr. Arreaga, covering for Dr. Sosa, who will admit. Cardiology will be placed on consult. - Lab Data Result diagrams: 06/02/19 11:50 06/02/19 11:50 Lab Results 06/02/19 06/02/19 06/02/19 Range/Units 11:50 11:50 11:50 WBC 8.9 (3.8-10.6) k/uL RBC 3.81 L (4.30-5.90) m/uL Hgb 9.7 L (13.0-17.5) gm/dL Hct 33.3 L (39.0-53.0) % MCV 87.5 (80.0-100.0) fL MCH 25.5 (25.0-35.0) pg MCHC 29.1 L (31.0-37.0) g/dL RDW 17.8 H (11.5-15.5) % Plt Count 364 (150-450) k/uL Neutrophils % 79 % Lymphocytes % 11 % Monocytes % 5 % Eosinophils % 2 % Basophils % 1 % Neutrophils # 7.1 (1.3-7.7) k/uL Lymphocytes # 1.0 (1.0-4.8) k/uL Monocytes # 0.5 (0-1.0) k/uL Eosinophils # 0.2 (0-0.7) k/uL Basophils # 0.0 (0-0.2) k/uL Manual Slide Review Performed Polychromasia Present Hypochromasia Marked Poikilocytosis Moderate Anisocytosis Slight PT (9.0-12.0) sec INR (<1.2) APTT (22.0-30.0) sec Sodium 129 L (137-145) mmol/L Potassium 5.2 H (3.5-5.1) mmol/L Chloride 99 (98-107) mmol/L Carbon Dioxide 22 (22-30) mmol/L Anion Gap 8 mmol/L BUN 50 H (9-20) mg/dL Creatinine 2.14 H (0.66-1.25) mg/dL Est GFR (CKD-EPI)AfAm 36 (>60 ml/min/1.73 sqM) Est GFR (CKD-EPI)NonAf 31 (>60 ml/min/1.73 sqM) Glucose 125 H (74-99) mg/dL Calcium 8.1 L (8.4-10.2) mg/dL Magnesium 2.2 (1.6-2.3) mg/dL Total Bilirubin 1.3 (0.2-1.3) mg/dL AST 25 (17-59) U/L ALT 11 (4-49) U/L Alkaline Phosphatase 229 H (38-126) U/L Troponin I (0.000-0.034) ng/mL NT-Pro-B Natriuret Pep 7550 pg/mL Total Protein 5.7 L (6.3-8.2) g/dL Albumin 2.5 L (3.5-5.0) g/dL Amylase 31 (30-110) U/L Lipase 35 (23-300) U/L 06/02/19 06/02/19 Range/Units 11:50 11:50 WBC (3.8-10.6) k/uL RBC (4.30-5.90) m/uL Hgb (13.0-17.5) gm/dL Hct (39.0-53.0) % MCV (80.0-100.0) fL MCH (25.0-35.0) pg MCHC (31.0-37.0) g/dL RDW (11.5-15.5) % Plt Count (150-450) k/uL Neutrophils % % Lymphocytes % % Monocytes % % Eosinophils % % Basophils % % Neutrophils # (1.3-7.7) k/uL Lymphocytes # (1.0-4.8) k/uL Monocytes # (0-1.0) k/uL Eosinophils # (0-0.7) k/uL Basophils # (0-0.2) k/uL Manual Slide Review Polychromasia Hypochromasia Poikilocytosis Anisocytosis PT 12.0 (9.0-12.0) sec INR 1.2 H (<1.2) APTT 26.9 (22.0-30.0) sec Sodium (137-145) mmol/L Potassium (3.5-5.1) mmol/L Chloride (98-107) mmol/L Carbon Dioxide (22-30) mmol/L Anion Gap mmol/L BUN (9-20) mg/dL Creatinine (0.66-1.25) mg/dL Est GFR (CKD-EPI)AfAm (>60 ml/min/1.73 sqM) Est GFR (CKD-EPI)NonAf (>60 ml/min/1.73 sqM) Glucose (74-99) mg/dL Calcium (8.4-10.2) mg/dL Magnesium (1.6-2.3) mg/dL Total Bilirubin (0.2-1.3) mg/dL AST (17-59) U/L ALT (4-49) U/L Alkaline Phosphatase (38-126) U/L Troponin I <0.012 (0.000-0.034) ng/mL NT-Pro-B Natriuret Pep pg/mL Total Protein (6.3-8.2) g/dL Albumin (3.5-5.0) g/dL Amylase (30-110) U/L Lipase (23-300) U/L - Radiology Data Radiology results: image reviewed (Chest x-ray shows [id number] effusions with adjacent atelectasis or consolidation. Correlate mild CHF. Similar to prior.) Disposition Clinical Impression: Chest pain, CHF (congestive heart failure) Disposition: ADMITTED IP TO THIS HOSP Is patient prescribed a controlled substance at d/c from ED?: No Referrals: Charles Antoine MD [Primary Care Provider] - 1-2 days Decision Time: 13:49
--- NOTE | 2019-06-02 12:13 | XR ---
EXAMINATION TYPE: XR chest 2V DATE OF EXAM: 06/02/2019 COMPARISON: 05/30/2019 HISTORY: 69-year-old male with chest pain TECHNIQUE: AP and lateral views FINDINGS: Median sternotomy wires are present. Heart borderline enlarged. Small to moderate effusions with biba silar opacities and mild interstitial prominence. IMPRESSION: [id number] effusions with adjacent atelectasis and/or consolidation. Correlate for possible mi ld CHF as an etiology. Relatively unchanged from prior.
[2019-06-02 12:18] LABS: Albumin 2.5 g/dL (3.5-5.0); Calcium 8.1 mg/dL (8.4-10.2); Magnesium 2.2 mg/dL (1.6-2.3); Potassium 5.2 mmol/L (3.5-5.1); Total Bilirubin 1.3 mg/dL (0.2-1.3); Total Protein 5.7 g/dL (6.3-8.2)
[2019-06-02 12:29] LABS: Anisocytosis Slight; Basophils % (A) 1 %; Eosinophils # (A) 0.2 k/uL (0-0.7); Eosinophils % (A) 2 %; HCT 33.3 % (39.0-53.0); HGB 9.7 gm/dL (13.0-17.5); Hypochromasia Marked; Lymphocytes % (A) 11 %; MCH 25.5 pg (25.0-35.0); MCHC 29.1 g/dL (31.0-37.0); MCV 87.5 fL (80.0-100.0); Mean Platelet Volume 9.4; Monocytes # (A) 0.5 k/uL (0-1.0); Monocytes % (A) 5 %; Neutrophils # (A) 7.1 k/uL (1.3-7.7); Neutrophils % (A) 79 %; Platelet Count 364 k/uL (150-450); Poikilocytosis Moderate; RBC 3.81 m/uL (4.30-5.90); RDW 17.8 % (11.5-15.5); WBC 8.9 k/uL (3.8-10.6)
[2019-06-02 12:30] LABS: INR 1.2 (<1.2); Partial Thromboplastin Time 26.9 sec (22.0-30.0)
[2019-06-02] MEDS ORDERED: ALPRAZolam 0.5 MG TAB PO STA (12:39)
[2019-06-02] MEDS ORDERED: HYDROcodone/APAP 5-325MG 1 EACH TAB PO STA (12:39)
[2019-06-02 13:16] LABS: Polychromasia Present
[2019-06-02] MEDS ORDERED: NITROGLYCERIN SL TABS 0.4 MG TAB SUBLINGUAL PRN (13:50)
[2019-06-02] MEDS: NITROGLYCERIN OINT 1 INCH/GM PACKET TOPICAL SCH (17:28)
[2019-06-02] MEDS: METOPROLOL TARTRATE 25 MG TAB PO SCH (21:57)
[2019-06-02] MEDS: FUROSEMIDE 100 MG in SODIUM CHLORIDE 0.9% 90 ML IV SCH (23:46)
[2019-06-03] MEDS: NITROGLYCERIN OINT 1 INCH/GM PACKET TOPICAL SCH ×2 (01:07→05:23)
[2019-06-03] MEDS: METOPROLOL TARTRATE 25 MG TAB PO SCH ×4 (01:35→17:07)
[2019-06-03] MEDS: HYDROcodone/APAP 5-325MG 1 EACH TAB PO PRN ×2 (02:49→09:59)
[2019-06-03 04:46] LABS: Anisocytosis Slight; HGB 9.5 gm/dL (13.0-17.5); Hypochromasia Marked; MCH 24.6 pg (25.0-35.0); MCHC 27.9 g/dL (31.0-37.0); MCV 88.2 fL (80.0-100.0); Mean Platelet Volume 9.3; Platelet Count 349 k/uL (150-450); Poikilocytosis Slight; RBC 3.86 m/uL (4.30-5.90); RDW 18.4 % (11.5-15.5); WBC 10.4 k/uL (3.8-10.6)
[2019-06-03 04:57] LABS: Albumin 2.5 g/dL (3.5-5.0); Calcium 8.2 mg/dL (8.4-10.2); Cholesterol 129 mg/dL (<200); HDL Cholesterol 17 mg/dL (40-60); LDL Cholesterol,Calculated 94 mg/dL (0-99); Potassium 5.8 mmol/L (3.5-5.1); Total Bilirubin 1.9 mg/dL (0.2-1.3); Total Protein 5.6 g/dL (6.3-8.2); Triglycerides 92 mg/dL (<150)
[2019-06-03] MEDS: ALPRAZolam 0.5 MG TAB PO PRN ×2 (06:28→15:14)
[2019-06-03] MEDS: FUROSEMIDE 100 MG in SODIUM CHLORIDE 0.9% 90 ML IV SCH ×2 (07:20→16:47)
--- NOTE | 2019-06-03 08:50 | P.CRDCN ---
History of Present Illness Consult date: 06/03/19 Requesting physician: Yudith Vicente Consult reason: chest pain, shortness of breath Chief complaint: Chest pain, shortness of breath History of present illness: This is a 69-year-old gentleman with past medical history significant for coronary artery disease and prior bypass surgery in 2013, valvular heart disease with prior mitral valve repair, chronic diastolic congestive heart fail ure, persistent atrial fibrillation, hypertension, hyperlipidemia, this is a third admission to the hospital in the past one week. He presents to the hospital on this occasion with symptoms of chest discomfort, difficulty in breathing. He was scheduled to be seen today at [facility] re garding his alveolar issues, but apparently his appointment had been canceled he had an echocardiogram with Doppler study performed on the of this month which revealed a normal left ventricular systolic function, his LAD was severely dilated, severe mitral regurgitation, mitral ring annuloplasty in place, severe tricuspid regurg severe pulmonary hypertension. Chest x-ray showed small to moderate bilateral effusions with adjacent atelectasis. EKG showed atrial fibrillation with a rapid ventricular response and ST depression is noted in the inferior lateral leads. Blood pressure on arrival here 91/60, heart rate 108, 96% on room air. Blood pressure this morning 88/50, heart rate in the low 100s, 99% on 2 L of oxygen. White blood cell count 10.4, hemoglobin 9.5, platelet count 349. Sodium 128, potassium 5.8, BUN 56, creatinine 2.3. Magnesium 2.2, total bilirubin 1.9, alkaline phosphatase 225, troponins 0.012, 0.024, 0.196. BNP 7550. Patient was initiated on a Lasix drip in the emergency room, he is putting out minimal amounts of urine at this time. At the time of my exami nation, patient is complaining of feeling quite short of breath, he is having some symptoms of chest pressure as well as some left upper abdominal discomfort. Past Medical History Past Medical History: Atrial Fibrillation, Chest Pain / Angina, Heart Failure, H yperlipidemia, Hypertension, Myocardial Infarction ([place]), Mitral Valve Prolapse (MVP) Additional Past Medical History / Comment(s): hx closed head injury, mild he will lysis likely related to his mitral valve repair and ring placement causing intravascular hemolytic lysis. Was seen by hematology back in September 2013 hospitalization. CABG 08/27/2013. anemia Last Myocardial Infarction Date:: 2004 History of Any Multi-Drug Resistant Organisms: None Reported Past Surgical History: Coronary Bypass/CABG, Heart Catheterization With Stent, Tonsillectomy Additional Past Surgical History / Comment(s): mitral valve repair Past Anesthesia/Blood Transfusion Reactions: Previous Problems w/ Anesthesia Additional Past Anesthesia/Blood Transfusion Reaction / Comment(s): confusion and lost memory from anesthesia Date of Last Stent Placement:: 2004 Past Psychological History: Anxiety Smoking Status: Former smoker Past Alcohol Use History: None Reported Past Drug Use History: None Reported - Past Family History Father Family Medical History: Myocardial Infarction ([place]) Additional Family Medical History / Comment(s): Father of a heart attack at age 55 Medications and Allergies Home Medications Medication Instructions Recorded Confirmed Type Artificial Tears-Hypromellose 1 drop BOTH EYES TID@0800,1200,1700 05/12/19 06/02/19 History [Artificial Tear Drops] Benzonatate [Tessalon Perles] 100 mg PO TID PRN 05/12/19 06/02/19 History Bisacodyl [Dulcolax] 10 mg RECTAL DAILY PRN 05/12/19 06/02/19 History Bumetanide [BUMEX] 3 mg PO BID@0900,1700 05/12/19 06/02/19 History Ferrous Gluconate 324 mg PO DAILY@0805/12/19 06/02/19 History Hyoscyamine Sulfate [Levsin] 0.125 mg PO Q4H PRN 05/12/19 06/02/19 History Ipratropium-Albuterol Nebulize 3 ml INHALATION RT-Q8H PRN 05/12/19 06/02/19 History [Duoneb 0.5 mg-3 mg/3 ml Soln] Magnesium Hydroxide [Milk of 7,200 mg PO DAILY PRN 05/12/19 06/02/19 History Magnesia Concentrate] Na Phos,M-B/Na Phos,Di-Ba [Fleet 133 ml RECTAL ONCE PRN 05/12/19 06/02/19 History Adult] Pantoprazole Sodium [Protonix] 40 mg PO DAILY@0800 05/12/19 06/02/19 History Polyethylene Glycol 3350 [Miralax] 17 gm PO DAILY@0800 05/12/19 06/02/19 History Polyvinyl Alcohol/Povidone [Clear 1 drop BOTH EYES Q2H PRN 05/12/19 06/02/19 History Eyes Natural Tears Drop] Sennosides/Docusate Sodium [La 1 tab PO BID@0800,1700 05/12/19 06/02/19 History Colace] Artificial Tears-Hypromellose 1 drop BOTH EYES DAILY PRN 05/27/19 06/02/19 History [Artificial Tear Drops] Aspirin 81 mg PO DAILY@0800 05/27/19 06/02/19 History Eucerin Cream 1 applic TOPICAL BID 05/27/19 06/02/19 History Melatonin 3 mg PO HS@2100 05/27/19 06/02/19 History Polyethylene Glycol 3350 [Miralax] 17 gm PO DAILY PRN 05/27/19 06/02/19 History Potassium Chloride ER [K-Dur 20] 20 meq PO DAILY@0800 05/27/19 06/02/19 History ALPRAZolam [Xanax] 0.5 mg PO DAILY@0800 #1 tab 06/01/19 06/02/19 Rx ALPRAZolam [Xanax] 0.5 mg PO Q8H PRN #1 tab 06/01/19 06/02/19 Rx Acetaminophen Tab [Tylenol] 500 mg PO Q6HR PRN tab 06/01/19 06/02/19 Rx Cephalexin [Keflex] 500 mg PO Q8HR 10 Days #30 cap 06/01/19 06/02/19 Rx Furosemide [Lasix] 40 mg PO BID 30 Days #60 tablet 06/01/19 06/02/19 Rx HYDROcodone/APAP 5-325MG [[place] 1 tab PO Q6HR PRN #4 tab 06/01/19 06/02/19 Rx 5-325] Metoprolol Tartrate [Lopressor] 25 mg PO TID 30 Days #90 tab 06/01/19 06/02/19 Rx Allergies Allergy/AdvReac Type Severity Reaction Status Date / Time atorvastatin Allergy Unknown Verified 06/02/19 13:38 digoxin Allergy Unknown Verified 06/02/19 13:38 heparin Allergy Unknown Verified 06/02/19 13:38 warfarin [From Coumadin] Allergy Unknown Verified 06/02/19 13:38 lisinopril AdvReac Intermediate Unknown Verified 06/02/19 13:38 Physical Exam Vitals: Vital Signs Temp Pulse Pulse Resp BP BP BP 06/03/19 07:46 97 F L 109 H 22 88/53 06/03/19 03:16 22 06/03/19 03:02 97.6 F 104 H 22 107/67 06/03/19 01:44 109 H 18 101/66 06/02/19 23:15 98 F 109 H 20 92/56 06/02/19 21:25 97.9 F 111 H 18 92/61 06/02/19 20:59 104 H 18 96/66 06/02/19 19:44 98 18 93/51 06/02/19 19:00 18 06/02/19 18:00 18 06/02/19 17:00 96 18 91/57 06/02/19 16:00 18 06/02/19 15:00 102 H 18 85/55 06/02/19 14:00 102 H 18 85/47 06/02/19 13:32 102 H 18 91/53 06/02/19 11:38 97.6 F 109 H 20 91/64 Pulse Ox 06/03/19 07:46 99 06/03/19 03:16 06/03/19 03:02 99 06/03/19 01:44 99 06/02/19 23:15 99 06/02/19 21:25 98 06/02/19 20:59 96 06/02/19 19:44 96 06/02/19 19:00 06/02/19 18:00 95 06/02/19 17:00 95 06/02/19 16:00 95 06/02/19 15:00 95 06/02/19 14:00 95 06/02/19 13:32 95 06/02/19 11:38 96 Intake and Output 06/02/19 06/03/19 06/03/19 22:59 06:59 14:59 Intake Total 118 Balance 118 Intake: Oral 118 Other: Voiding Method Diaper Indwelling Catheter Weight 95.708 kg 97 kg CONSTITUTIONAL: 69-year-old gentleman very short of breath at the time of my examination HEENT: Head is normocephalic. Pupils are equal, round. Sclerae anicteric. Mucous membranes of the mouth are moist. Elevated jugular venous pressure . No carotid bruit. CHEST EXAMINATION: bibasilar rales. No chest wall tenderness is noted on palpation or with deep breathing. HEART EXAMINATION: Irregular rate and rhythm. S1, S2 heard. Systolic ejection murmur at the left sternal border, no gallops or rub. ABDOMEN: Soft, left upper quadrant tenderness. Positive bowel sounds. EXTREMITIES: 2+ peripheral pulses, 1+ bilateral lower extremity pitting edema, chronic venous stasis. NEUROLOGIC EXAMINATION: Patient is awake, alert and oriented x3. Results 06/03/19 04:06 06/03/19 04:06 Cardiac Enzymes 06/02/19 06/02/19 06/02/19 Range/Units 11:50 11:50 18:30 AST 25 (17-59) U/L Troponin I <0.012 0.024 (0.000-0.034) ng/mL 06/02/19 06/03/19 Range/Units 23:38 04:06 AST 32 (17-59) U/L Troponin I 0.196 H* (0.000-0.034) ng/mL Coagulation 06/02/19 Range/Units 11:50 PT 12.0 (9.0-12.0) sec APTT 26.9 (22.0-30.0) sec Lipids 06/03/19 Range/Units 04:06 Triglycerides 92 (<150) mg/dL Cholesterol 129 (<200) mg/dL HDL Cholesterol 17 L (40-60) mg/dL CBC 06/02/19 06/03/19 Range/Units 11:50 04:06 WBC 8.9 10.4 (3.8-10.6) k/uL RBC 3.81 L 3.86 L (4.30-5.90) m/uL Hgb 9.7 L 9.5 L (13.0-17.5) gm/dL Hct 33.3 L 34.0 L (39.0-53.0) % Plt Count 364 349 (150-450) k/uL Comprehensive Metabolic Panel 06/02/19 06/03/19 Range/Units 11:50 04:06 Sodium 129 L 128 L (137-145) mmol/L Potassium 5.2 H 5.8 H (3.5-5.1) mmol/L Chloride 99 97 L (98-107) mmol/L Carbon Dioxide 22 20 L (22-30) mmol/L BUN 50 H 56 H (9-20) mg/dL Creatinine 2.14 H 2.37 H (0.66-1.25) mg/dL Glucose 125 H 93 (74-99) mg/dL Calcium 8.1 L 8.2 L (8.4-10.2) mg/dL AST 25 32 (17-59) U/L ALT 11 12 (4-49) U/L Alkaline Phosphatase 229 H 225 H (38-126) U/L Total Protein 5.7 L 5.6 L (6.3-8.2) g/dL Albumin 2.5 L 2.5 L (3.5-5.0) g/dL Current Medications Generic Name Dose Route Start Last Admin Trade Name Freq PRN Reason Stop Dose Admin Hydrocodone Bitart/Acetaminophen 1 each 06/02/19 21:22 06/03/19 02:49 [place]ansom 5-325 PO 1 each Q6HR PRN Administration Pain Alprazolam 0.5 mg 06/02/19 21:22 06/03/19 06:28 Xanax PO 0.5 mg Q8H PRN Administration Anxiety Aspirin 325 mg 06/03/19 09:00 Aspirin PO DAILY VALERIE Furosemide 100 mg/ Sodium 100 mls @ 10 mls/hr 06/02/19 23:30 06/02/19 23:46 Chloride IV 10 mg/hr .Q10H VALERIE 10 mls/hr Administration 10 MG/HR Melatonin 3 mg 06/03/19 21:00 Melatonin PO HS@2100 VALERIE Metoprolol Tartrate 25 mg 06/02/19 22:00 06/03/19 01:43 Lopressor PO 25 mg TID VALERIE Administration Nitroglycerin 0.4 mg 06/02/19 13:50 Nitrostat SUBLINGUAL Q5M PRN Chest Pain Nitroglycerin 1 inch 06/02/19 18:00 06/03/19 05:23 Nitro-Bid Oint TOPICAL Not Given Q6HR VALERIE Sodium Chloride 10 ml 06/02/19 21:00 06/02/19 21:57 Saline Flush IV Not Given BID VALERIE Intake and Output 06/02/19 06/03/19 06/03/19 22:59 06:59 14:59 Intake Total 118 Balance 118 Intake: Oral 118 Other: Voiding Method Diaper Indwelling Catheter Weight 95.708 kg 97 kg 06/03/19 04:06 06/03/19 04:06 EKG Interpretations (text) EKG shows atrial fibrillation with ST depression noted in the inferior lateral leads Assessment and Plan Plan: Assessment and plan #1 diastolic congestive heart failure acute on chronic #2 chest pressure and heaviness, possible acute coronary syndrome, initial troponin negative, subsequent troponin 0.024, 0.196. EKG shows atrial fibrillation with ST depression noted in the inferior lateral leads. #3 known history of coronary artery disease with prior bypass surgery #4 history of mitral valve repair, most recent echo showed severe mitral regurgitation, severe tricuspid regurg was performed approximately a week ago n ormal LV function #5 hypertension #6 hyperlipidemia #7 hyponatremia #8 acute on chronic renal failure #9 hyperkalemia #10 chronic anemia Plan We will decrease the patient's aspirin 81 mg daily, continue IV Lasix drip, continue metoprolol, Nitropaste. Patient's overall prognosis is guarded. Further recommendations to follow. DNP note has been reviewed, I agree with a documented findings and plan of care. Patient was seen and examined.
[2019-06-03] MEDS ORDERED: ASPIRIN 325 MG TAB PO SCH (09:00)
[2019-06-03] MEDS ORDERED: ASPIRIN 81 MG PO SCH (09:00)
[2019-06-03 09:09] VITALS: BMI 30.7
[2019-06-03] MEDS ORDERED: IPRATROPIUM-ALBUTEROL 3 ML NEB INHALATION PRN (09:21)
[2019-06-03] MEDS ORDERED: BENZONATATE 100 MG CAP PO PRN (09:21)
[2019-06-03] MEDS ORDERED: ACETAMINOPHEN TAB 500 MG TAB PO PRN (09:21)
[2019-06-03] MEDS ORDERED: BISACODYL 10 MG SUPP RECTAL PRN (09:21)
[2019-06-03] MEDS ORDERED: POLYETHYLENE GLYCOL 3350 17 GM POWD.PACK PO PRN (09:21)
[2019-06-03] MEDS ORDERED: FAMOTIDINE 20 MG TAB PO SCH ×2 (10:00→21:00)
--- NOTE | 2019-06-03 10:16 | P.HPIM ---
History of Present Illness Patient is 69-year-old male with significant past Juvenal history of CABG mitral valve repair in the past chronic diastolic dysfunction severe pulmonary hypertension came in with complaints of shortness of breath and chest pressure l matt sensation found to be in heart failure with pulmonary edema elevated JVD and elevated BNP. Patient blood pressure is low because of poor hemodynamics including severe pulmonary hypertension patient has severe mitral regurgitation and will need replacement of the mitral valve. Patient is supposed to follow. He was to [place] was unable to follow-up admission as his appointment was canceled. Patient was started on IV Lasix drip. Patient prognosis is extremely poor because of severe mitral regurgitation poor hemodynamics status because of severe pulmonary hypertension. Patient had normal ejection fraction the past. Patient has multiple other provided abnormalities secondary to cardiorenal syndrome including low sodium of 128 potassium of 5.8. Patient is in acute renal failure with a serum creatinine being 2.5 baseline around 1.2 today patient does have persistent A. fib presently rate controlled but patient is not on any anti-coagulation because of multiple AVMs with recurrent GI bleeds. Review of Systems REVIEW OF SYSTEMS: CONSTITUTIONAL: No fever, no malaise, no fatigue. HEENT: No recent visual problems or hearing problems. Denied any sore throat. CARDIOVASCULAR: no syncope. PULMONARY: No shortness of breath, no cough, no hemoptysis. GASTROINTESTINAL: No diarrhea, no nausea, no vomiting, no abdominal pain. NEUROLOGICAL: No headaches, no weakness, no numbness. HEMATOLOGICAL: Denies any bleeding or petechiae. GENITOURINARY: Denies any burning micturition, frequency, or urgency. MUSCULOSKELETAL/RHEUMATOLOGICAL: Denies any joint pain, swelling, or any muscle pain. ENDOCRINE: Denies any polyuria or polydipsia. The rest of the 14-point review of systems is negative. Past Medical History Past Medical History: Atrial Fibrillation, Chest Pain / Angina, Heart Failure, Hyperlipidemia, Hypertension, Myocardial Infarction ([place]), Mitral Valve Prolapse ([place]) Additional Past Medical History / Comment(s): hx closed head injury, mild he will lysis likely related to his mitral valve repair and ring placement causing intravascular hemolytic lysis. Was seen by hematology back in September 2013 hospitalization. CABG 08/27/2013. anemia Last Myocardial Infarction Date:: 2004 History of Any Multi-Drug Resistant Organisms: None Reported Past Surgical History: Coronary Bypass/CABG, Heart Catheterization With Stent, Tonsillectomy Additional Past Surgical History / Comment(s): mitral valve repair Past Anesthesia/Blood Transfusion Reactions: Previous Problems w/ Anesthesia Additional Past Anesthesia/Blood Transfusion Reaction / Comment(s): confusion and lost memory from anesthesia Date of Last Stent Placement:: 2004 Past Psychological History: Anxiety Smoking Status: Former smoker Past Alcohol Use History: None Reported Past Drug Use History: None Reported - Past Family History Father Family Medical History: Myocardial Infarction ([place]) Additional Family Medical History / Comment(s): Father of a heart attack at age 55 Medications and Allergies Home Medications Medication Instructions Recorded Confirmed Type Artificial Tears-Hypromellose 1 drop BOTH EYES TID@0800,1200,1700 05/12/19 06/02/19 History [Artificial Tear Drops] Benzonatate [Tessalon Perles] 100 mg PO TID PRN 05/12/19 06/02/19 History Bisacodyl [Dulcolax] 10 mg RECTAL DAILY PRN 05/12/19 06/02/19 History Bumetanide [BUMEX] 3 mg PO BID@0900,1700 05/12/19 06/02/19 History Ferrous Gluconate 324 mg PO DAILY@0800 05/12/19 06/02/19 History Hyoscyamine Sulfate [Levsin] 0.125 mg PO Q4H PRN 05/12/19 06/02/19 History Ipratropium-Albuterol Nebulize 3 ml INHALATION RT-Q8H PRN 05/12/19 06/02/19 History [Duoneb 0.5 mg-3 mg/3 ml Soln] Magnesium Hydroxide [Milk of 7,200 mg PO DAILY PRN 05/12/19 06/02/19 History Magnesia Concentrate] Na Phos,M-B/Na Phos,Di-Ba [Fleet 133 ml RECTAL ONCE PRN 05/12/19 06/02/19 History Adult] Pantoprazole Sodium [Protonix] 40 mg PO DAILY@0800 05/12/19 06/02/19 History Polyethylene Glycol 3350 [Miralax] 17 gm PO DAILY@0800 05/12/19 06/02/19 History Polyvinyl Alcohol/Povidone [Clear 1 drop BOTH EYES Q2H PRN 05/12/19 06/02/19 History Eyes Natural Tears Drop] Sennosides/Docusate Sodium [[place] 1 tab PO BID@0800,1700 05/12/19 06/02/19 History Colace] Artificial Tears-Hypromellose 1 drop BOTH EYES DAILY PRN 05/27/19 06/02/19 History [Artificial Tear Drops] Aspirin 81 mg PO DAILY@0800 05/27/19 06/02/19 History Eucerin Cream 1 applic TOPICAL BID 05/27/19 06/02/19 History Melatonin 3 mg PO HS@2100 05/27/19 06/02/19 History Polyethylene Glycol 3350 [Miralax] 17 gm PO DAILY PRN 05/27/19 06/02/19 History Potassium Chloride ER [K-Dur 20] 20 meq PO DAILY@0800 05/27/19 06/02/19 History ALPRAZolam [Xanax] 0.5 mg PO DAILY@0800 #1 tab 06/01/19 06/02/19 Rx ALPRAZolam [Xanax] 0.5 mg PO Q8H PRN #1 tab 06/01/19 06/02/19 Rx Acetaminophen Tab [Tylenol] 500 mg PO Q6HR PRN tab 06/01/19 06/02/19 Rx Cephalexin [Keflex] 500 mg PO Q8HR 10 Days #30 cap 06/01/19 06/02/19 Rx Furosemide [Lasix] 40 mg PO BID 30 Days #60 tablet 06/01/19 06/02/19 Rx HYDROcodone/APAP 5-325MG [[place] 1 tab PO Q6HR PRN #4 tab 06/01/19 06/02/19 Rx 5-325] Metoprolol Tartrate [Lopressor] 25 mg PO TID 30 Days #90 tab 06/01/19 06/02/19 Rx Allergies Allergy/AdvReac Type Severity Reaction Status Date / Time atorvastatin Allergy Unknown Verified 06/02/19 13:38 digoxin Allergy Unknown Verified 06/02/19 13:38 heparin Allergy Unknown Verified 06/02/19 13:38 warfarin [From Coumadin] Allergy Unknown Verified 06/02/19 13:38 lisinopril AdvReac Intermediate Unknown Verified 06/02/19 13:38 Physical Exam Vitals: Vital Signs Temp Pulse Pulse Resp BP BP BP 06/03/19 09:42 109 H 108/67 06/03/19 07:46 97 F L 109 H 22 88/53 06/03/19 03:16 22 06/03/19 03:02 97.6 F 104 H 22 107/67 06/03/19 01:44 109 H 18 101/66 06/02/19 23:15 98 F 109 H 20 92/56 06/02/19 21:25 97.9 F 111 H 18 92/61 06/02/19 20:59 104 H 18 96/66 06/02/19 19:44 98 18 93/51 06/02/19 19:00 18 06/02/19 18:00 18 06/02/19 17:00 96 18 91/57 06/02/19 16:00 18 06/02/19 15:00 102 H 18 85/55 06/02/19 14:00 102 H 18 85/47 06/02/19 13:32 102 H 18 91/53 06/02/19 11:38 97.6 F 109 H 20 91/64 Pulse Ox 06/03/19 09:42 06/03/19 07:46 99 06/03/19 03:16 06/03/19 03:02 99 06/03/19 01:44 99 06/02/19 23:15 99 06/02/19 21:25 98 06/02/19 20:59 96 06/02/19 19:44 96 06/02/19 19:00 06/02/19 18:00 95 06/02/19 17:00 95 06/02/19 16:00 95 06/02/19 15:00 95 06/02/19 14:00 95 06/02/19 13:32 95 06/02/19 11:38 96 Intake and Output 06/02/19 06/03/19 06/03/19 22:59 06:59 14:59 Intake Total 118 Balance 118 Intake: Oral 118 Other: Voiding Method Diaper Indwelling Catheter Indwelling Catheter Weight 95.708 kg 97 kg 97 kg PHYSICAL EXAMINATION: GENERAL: The patient is alert and oriented x3, and is in respiratory distress. Well developed, well nourished. HEENT: Pupils are round and equally reacting to light. EOMI. No scleral icterus. No conjunctival pallor. Normocephalic, atraumatic. No pharyngeal erythema. No thyromegaly. CARDIOVASCULAR: S1 and S2 present. No murmurs, rubs, or gallops. Elevated JVD irregularly regular rhythm PULMONARY: History or crackles ABDOMEN: Soft, nontender, nondistended, normoactive bowel sounds. No palpable organomegaly. MUSCULOSKELETAL: No joint swelling or deformity. EXTREMITIES: No cyanosis, clubbing, bilateral pedal edema chronic venous stasis dermatosis NEUROLOGICAL: Gross neurological examination did not reveal any focal deficits. SKIN: No rashes. Results CBC & Chem 7: 06/03/19 04:06 06/03/19 04:06 Labs: Abnormal Lab Results - Last 24 Hours (Table) 06/02/19 06/02/19 06/02/19 Range/Units 11:50 11:50 11:50 RBC 3.81 L (4.30-5.90) m/uL Hgb 9.7 L (13.0-17.5) gm/dL Hct 33.3 L (39.0-53.0) % MCH (25.0-35.0) pg MCHC 29.1 L (31.0-37.0) g/dL RDW 17.8 H (11.5-15.5) % INR 1.2 H (<1.2) Sodium 129 L (137-145) mmol/L Potassium 5.2 H (3.5-5.1) mmol/L Chloride (98-107) mmol/L Carbon Dioxide (22-30) mmol/L BUN 50 H (9-20) mg/dL Creatinine 2.14 H (0.66-1.25) mg/dL Glucose 125 H (74-99) mg/dL Calcium 8.1 L (8.4-10.2) mg/dL Total Bilirubin (0.2-1.3) mg/dL Alkaline Phosphatase 229 H (38-126) U/L Troponin I (0.000-0.034) ng/mL Total Protein 5.7 L (6.3-8.2) g/dL Albumin 2.5 L (3.5-5.0) g/dL HDL Cholesterol (40-60) mg/dL 06/02/19 06/03/19 06/03/19 Range/Units 23:38 04:06 04:06 RBC 3.86 L (4.30-5.90) m/uL Hgb 9.5 L (13.0-17.5) gm/dL Hct 34.0 L (39.0-53.0) % MCH 24.6 L (25.0-35.0) pg MCHC 27.9 L (31.0-37.0) g/dL RDW 18.4 H (11.5-15.5) % INR (<1.2) Sodium (137-145) mmol/L Potassium (3.5-5.1) mmol/L Chloride (98-107) mmol/L Carbon Dioxide (22-30) mmol/L BUN (9-20) mg/dL Creatinine (0.66-1.25) mg/dL Glucose (74-99) mg/dL Calcium (8.4-10.2) mg/dL Total Bilirubin (0.2-1.3) mg/dL Alkaline Phosphatase (38-126) U/L Troponin I 0.196 H* (0.000-0.034) ng/mL Total Protein (6.3-8.2) g/dL Albumin (3.5-5.0) g/dL HDL Cholesterol 17 L (40-60) mg/dL 06/03/19 Range/Units 04:06 RBC (4.30-5.90) m/uL Hgb (13.0-17.5) gm/dL Hct (39.0-53.0) % MCH (25.0-35.0) pg MCHC (31.0-37.0) g/dL RDW (11.5-15.5) % INR (<1.2) Sodium 128 L (137-145) mmol/L Potassium 5.8 H (3.5-5.1) mmol/L Chloride 97 L (98-107) mmol/L Carbon Dioxide 20 L (22-30) mmol/L BUN 56 H (9-20) mg/dL Creatinine 2.37 H (0.66-1.25) mg/dL Glucose (74-99) mg/dL Calcium 8.2 L (8.4-10.2) mg/dL Total Bilirubin 1.9 H (0.2-1.3) mg/dL Alkaline Phosphatase 225 H (38-126) U/L Troponin I (0.000-0.034) ng/mL Total Protein 5.6 L (6.3-8.2) g/dL Albumin 2.5 L (3.5-5.0) g/dL HDL Cholesterol (40-60) mg/dL Thrombosis Risk Factor Assmnt - Choose All That Apply Any of the Below Risk Factors Present?: Yes Each Factor Represents 1 point: Medical pt on bed rest, Obesity (BMI >25), Swollen legs (current) Each Risk Factor Represents 2 Points: Age 61-74 years Other congenital or acquired thrombophilia - If yes, enter type in comment: No Thrombosis Risk Factor Assessment Total Risk Factor Score: 5 Thrombosis Risk Factor Assessment Level: High Risk Assessment and Plan Plan: -congestive heart failure chronic the diastolic dysfunction with acute exacerb ation exacerbation is secondary to severe mitral regurgitation patient will be continued on IV Lasix drip prognosis is extremely poor. -Chest pressure and heaviness mild elevation of troponin possibility of acute coronary syndrome cannot be ruled out there is some ST depressions with atrial fibrillation in the inferior leads cardiology is following him at the patient and further management as per them and initial troponin was negative subsequent troponin is 0.196 and this can be just because of the renal failure and A. fib itself. -Coronary artery disease is status post post-bypass surgery in the past -Acute renal failure probably of cardiorenal syndrome nephrology was consulted continue with IV Lasix drip -Hyponatremia hypervolemic hyponatremia secondary to congestive heart failure. -Hyperkalemia secondary to acute renal failure. We will use Kayexalate -Hypertension -Hyperlipidemia -Severe mitral regurgitation and severe secondary pulmonary hypertension. CODE STATUS full code -DVT prophylaxis with subcutaneous. NG tube prophylaxis with Pepcid discontinue proton pump any better because of his renal dysfunction
[2019-06-03] MEDS ORDERED: TOLVAPTAN 15 MG 1/2 TABLET PO ONE (11:34)
--- NOTE | 2019-06-03 12:22 | CONS ---
CONSULTATION REASON FOR CONSULT: Renal failure. HISTORY OF PRESENT ILLNESS: Patient is a 69-year-old male with history of severe valvular heart disease with currently status post coronary artery bypass surgery and mitral valve repair. Patient also has severe pulmonary hypertension. It looks like he does have CKD as well with a previous creatinine around 1.1-1.3 mg/dL, NKF stage III. The serum creatinine this admission is 2.1 mg/dL. Patient was admitted to the hospital with shortness of breath, volume overload. His blood pressure has been on the lower side. He is currently maintained on Lasix drip. Patient has an indwelling Biggs catheter which was just put in. He denies any chest pains. No history of use of NSAIDs prior to admission. The patient is also hyperkalemic. His potassium was 5.8 today. PAST MEDICAL HISTORY: Cardiomyopathy with dilated left atrium. EF 50%, severe pulmonary hypertension, history of mitral valve prolapse, CA, atrial fibrillation, hyperlipidemia, history of CA, closed-head injury. PAST SURGICAL HISTORY: Coronary artery bypass surgery with a previous coronary stent and cardiac catheterization, tonsillectomy, mitral valve repair. SOCIAL HISTORY: Patient is a former smoker. No history of drug abuse or alcohol abuse. MEDICATIONS: Medications at home prior to admission included Dulcolax, Bumex, iron, albuterol, Protonix, MiraLAX, Colace, melatonin, MiraLAX, potassium, Xanax, Lasix Lopressor. ALLERGIES: Include ATORVASTATIN, DIGOXIN, HEPARIN, COUMADIN, COUMADIN and LISINOPRIL. REVIEW OF SYSTEMS: As per HPI. Other systems negative. PHYSICAL EXAMINATION: On examination, patient is currently mildly short of breath. He is not in any acute distress. Blood pressure is 108/67, heart rate 109 per minute, he is afebrile. Examination of the heart S1, S2. Examination of the lungs, bilateral breath sounds are heard. Decreased breath sounds at the bases. Bilateral crackles are heard. Abdomen is soft, non-tender. Examination of lower extremities shows edema with severe chronic skin changes and a lot of chronic edema noted. Some wrinkling of the skin is noted as well in the legs. CRAS exam grossly intact. Patient is quite weak, but he has been able to move all 4 extremities. LAB: Show sodium 128, potassium 5.8, chloride 97, CO2 is 20, BUN 56 serum creatinine 2.37, hemoglobin 9.5 g/dL. ASSESSMENT: 1. Acute kidney injury, cardiorenal, and possibly component of acute tubular necrosis from hypotension, hypoperfusion, currently nonoliguric, maintained on Lasix drip for severe volume overload. I will add oral midodrine to help with the hypotension. Continue with the Lasix drip for now. 2. Hyperkalemia associated with acute kidney injury and use of potassium supplementation prior to admission. Currently on hold. Continue with the Lasix drip. Patient has so far adequate urine output. We will repeat another set of electrolytes this evening maintain low-potassium diet as well. Blood pressure, blood sugars are not running high. 3. Hypervolemic hyponatremia. Continue with the Lasix drip. I will give a dose of tolvaptan given the severe hypervolemia currently. 4. History of mitral valve prolapse status post mitral valve repair. 5. Coronary artery disease status post coronary artery bypass surgery. 6. Chronic kidney disease stage 3 most likely secondary to nephrosclerosis. Check urinalysis. Check ultrasound of the kidneys if not done the recently. 7. Severe pulmonary hypertension with resultant chronic lower extremity edema. 8. Anemia, rule out iron deficiency. PLAN: Continue with Lasix drip, repeat labs this evening. Add a dose of tolvaptan to help with the hyponatremia and maintain off potassium supplementation. Add midodrine to help with the hypotension. Check urinalysis and repeat labs in a.m. Thank you for this consultation. Will continue to follow the patient with you during his hospitalization. MMODL / IJN: [id number] /
[2019-06-03 13:49] VITALS: RESP 20
[2019-06-03 14:36] LABS: Bacteria,Urine Occasional /hpf; Hyaline Casts,Urine 66 /lpf (0-2); Mucus,Urine Rare /hpf; RBC,Urine >182 /hpf (0-5); Squamous Epithelial Cell,Urine 4 /hpf (0-4); WBC,Urine >182 /hpf (0-5)
[2019-06-03 15:08] LABS: Appearance,Urine Clear (Clear); Color,Urine Yellow; Protein,Urine Negative (Negative); Specific Gravity,Urine 1.025 (1.001-1.035)
[2019-06-03 15:09] LABS: Bilirubin,Urine Negative (Negative); Blood,Urine Negative (Negative); Glucose,Urine (UA) Negative (Negative); Ketones,Urine 2+ (Negative); Leukocyte Esterase,Urine Negative (Negative); Nitrite,Urine Negative (Negative); Urobilinogen,Urine <2.0 mg/dL (<2.0)
[2019-06-03 15:48] VITALS: BP 102/52; PULSE 109; TEMP 97
[2019-06-03 16:00] LABS: % Iron Saturation 4.29 (15.00-50.00)
[2019-06-03] MEDS ORDERED: SENNOSIDES-DOCUSATE SODIUM 1 EACH TAB PO SCH (17:00)
[2019-06-03] MEDS ORDERED: CALCIUM CHLORIDE 100 MG/ML 10 ML SYRINGE ONE (18:00)
[2019-06-03] MEDS ORDERED: EPINEPHrine 10 ML SYRINGE (0.1 MG/ML) ONE (18:00)
[2019-06-03] MEDS ORDERED: SODIUM BICARB 8.4% 50 ML SYR (1 MEQ/ML) ONE (18:00)
[2019-06-03] MEDS ORDERED: ATROPINE SULFATE 0.1 MG/ML 10ML SYRINGE ONE (18:00)
[2019-06-03 19:14] LABS: ABG Base Excess -16.7 mmol/L; ABG HCO3 11 mmol/L (21-25); ABG Oxygen Saturation 96.7 % (94-97); ABG PCO2 29 mmHg (35-45); ABG PO2 106 mmHg (83-108); ABG TCO2 12 mmol/L (19-24); Allen Test Performed? Yes
[2019-06-03 19:16] LABS: Albumin 2.7 g/dL (3.5-5.0); Calcium 8.1 mg/dL (8.4-10.2); Magnesium 2.5 mg/dL (1.6-2.3); Phosphorus 7.7 mg/dL (2.5-4.5); Total Bilirubin 2.2 mg/dL (0.2-1.3); Total Protein 6.2 g/dL (6.3-8.2)
--- NOTE | 2019-06-03 19:16 | P.PN ---
Progress Note - Text Progress Note Date: 06/03/19 CODE BLUE CODE ISHMAEL was called on this patient at 6:04 PM. I attended this code. Patient was found to be in PEA. Advanced cardiac life support was initiated with high quality chest compressions. Patient was given epinephrine and bicarbonate. Please refer to CODE BLUE sheet for further details of the code. ROSC was achieved around 6:14 PM. His rhythm post resuscitation was atrial fibrillation with heart rate in the 130s. Patient was moved to the ICU. Dr. Cramer and primary Dr. Harry was notified by nursing. This event took approximately 30 minutes.
[2019-06-03 19:21] LABS: Potassium 6.3 mmol/L (3.5-5.1)
[2019-06-03] MEDS ORDERED: NALOXONE 0.4 MG/ML 1 ML VIAL IV PRN (19:38)
[2019-06-03 19:45] LABS: Glucose,Whole Blood 117 mg/dL (75-99)
[2019-06-03] MEDS ORDERED: DEXTROSE 5% IN WATER 1,000 ML with SODIUM BICARB (1 MEQ/ML) 150 ML IV SCH (19:45)
[2019-06-03 20:08] LABS: Anisocytosis Slight; HCT 41.1 % (39.0-53.0); Hypochromasia Marked; MCH 25.4 pg (25.0-35.0); MCHC 26.8 g/dL (31.0-37.0); Mean Platelet Volume 9.1; Platelet Count 344 k/uL (150-450); Poikilocytosis Slight; RBC 4.32 m/uL (4.30-5.90); RDW 17.9 % (11.5-15.5); WBC 13.3 k/uL (3.8-10.6)
[2019-06-03 20:46] LABS: Eosinophils # (M) 0.13 k/uL (0-0.7); Lymphocytes # (M) 2.13 k/uL (1.0-4.8); Monocytes # (M) 0.93 k/uL (0-1.0); Neutrophils # (M) 10.11 k/uL (1.3-7.7); Neutrophils % (M) 76 %; Nucleated Red Blood Cells 0 /100 WBC (0-0); Poikilocytosis (M) Present; Polychromasia Present; Target Cells Present; Total Cells Counted 100
[2019-06-03] MEDS ORDERED: MIDODRINE 5 MG TAB PO SCH (21:00)
[2019-06-03] MEDS ORDERED: MELATONIN 3 MG TABLET PO SCH (21:00)
[2019-06-03] MEDS ORDERED: MINERAL OIL-WHITE PETROLATUM 120 GM JAR TOPICAL SCH (21:00)
[2019-06-03] MEDS ORDERED: HEPARIN SODIUM,PORCINE 5,000 UNIT/ML 1 ML VIAL SQ SCH (21:00)
--- NOTE | 2019-06-04 14:45 | P.DS ---
Providers Date of admission: 06/02/19 13:50 Attending physician: Yudith Vicente Consults: 06/02/19 13:50 Consult Physician Urgent Consulting Provider: Selena Meier Consult Reason/Comments: cp, chf Do you want consulting provider notified?: Yes 06/03/19 09:26 Consult Physician Routine Consulting Provider: Shahnaz Salguero Consult Reason/Comments: KAT Do you want consulting provider notified?: Yes 06/03/19 18:29 Consult Physician Routine Consulting Provider: Rani Cramer Consult Reason/Comments: ICU management Do you want consulting provider notified?: Yes, Notify in am Primary care physician: [facility] Course: Patient with the severe mitral stenosis and severe pulmonary hypertension chronic diastolic dysfunction was admitted for heart failure exacerbation and went into pulseless electrical activity "blue was called and the patient was resuscitated subsequently transferred in a to ICU and patient coded again after which the his CODE STATUS was discussed the family patient was subsequently made DO NOT RESUSCITATE. Please refer to Dr. West's dictation for further details of the cord. And exact time of . Preliminary cause of : Congestive heart failure from mitral regurgitation with contribution from severe pulmonary hypertension Plan - Discharge Summary Discharge Rx Participant: No New Discharge Prescriptions: Continue Polyvinyl Alcohol/Povidone [Clear Eyes Natural Tears Drop] 1 drop BOTH EYES Q2H PRN PRN Reason: Dry Eye(S) Polyethylene Glycol 3350 [Miralax] 17 gm PO DAILY@0800 Magnesium Hydroxide [Milk of Magnesia Concentrate] 7,200 mg PO DAILY PRN PRN Reason: Constipation Ipratropium-Albuterol Nebulize [Duoneb 0.5 mg-3 mg/3 ml Soln] 3 ml INHALATION RT-Q8H PRN PRN Reason: Shortness Of Breath/WHEEZING Na Phos,M-B/Na Phos,Di-Ba [Fleet Adult] 133 ml RECTAL ONCE PRN PRN Reason: Constipation Bisacodyl [Dulcolax] 10 mg RECTAL DAILY PRN PRN Reason: Constipation Benzonatate [Tessalon Perles] 100 mg PO TID PRN PRN Reason: Cough Sennosides/Docusate Sodium [[place] Colace] 1 tab PO BID@0800,1700 Artificial Tears-Hypromellose [Artificial Tear Drops] 1 drop BOTH EYES TID@0800,1200,1700 Pantoprazole Sodium [Protonix] 40 mg PO DAILY@0800 Ferrous Gluconate 324 mg PO DAILY@0800 Bumetanide [BUMEX] 3 mg PO BID@0900,1700 Artificial Tears-Hypromellose [Artificial Tear Drops] 1 drop BOTH EYES DAILY PRN PRN Reason: Dry Eye(S) Polyethylene Glycol 3350 [Miralax] 17 gm PO DAILY PRN PRN Reason: Constipation Melatonin 3 mg PO HS@2100 Aspirin 81 mg PO DAILY@0800 Potassium Chloride ER [K-Dur 20] 20 meq PO DAILY@0800 Eucerin Cream 1 applic TOPICAL BID Cephalexin [Keflex] 500 mg PO Q8HR 10 Days #30 cap Furosemide [Lasix] 40 mg PO BID 30 Days #60 tablet Metoprolol Tartrate [Lopressor] 25 mg PO TID 30 Days #90 tab Acetaminophen Tab [Tylenol] 500 mg PO Q6HR PRN tab PRN Reason: Fever And/ Or Pain ALPRAZolam [Xanax] 0.5 mg PO Q8H PRN #1 tab PRN Reason: Anxiety ALPRAZolam [Xanax] 0.5 mg PO DAILY@0800 #1 tab HYDROcodone/APAP 5-325MG [[place] 5-325] 1 tab PO Q6HR PRN #4 tab PRN Reason: Pain Discontinued Hyoscyamine Sulfate [Levsin] 0.125 mg PO Q4H PRN PRN Reason: STOMACH CRAMPING Discharge Medication List Artificial Tears-Hypromellose [Artificial Tear Drops] 1 drop BOTH EYES TID@0800,1200,1700 05/12/19 [History] Benzonatate [Tessalon Perles] 100 mg PO TID PRN 05/12/19 [History] Bisacodyl [Dulcolax] 10 mg RECTAL DAILY PRN 05/12/19 [History] Bumetanide [BUMEX] 3 mg PO BID@0900,1700 05/12/19 [History] Ferrous Gluconate 324 mg PO DAILY@0800 05/12/19 [History] Ipratropium-Albuterol Nebulize [Duoneb 0.5 mg-3 mg/3 ml Soln] 3 ml INHALATION RT-Q8H PRN 05/12/19 [History] Magnesium Hydroxide [Milk of Magnesia Concentrate] 7,200 mg PO DAILY PRN 05/12/19 [History] Na Phos,M-B/Na Phos,Di-Ba [Fleet Adult] 133 ml RECTAL ONCE PRN 05/12/19 [History] Pantoprazole Sodium [Protonix] 40 mg PO DAILY@0800 05/12/19 [History] Polyethylene Glycol 3350 [Miralax] 17 gm PO DAILY@0800 05/12/19 [History] Polyvinyl Alcohol/Povidone [Clear Eyes Natural Tears Drop] 1 drop BOTH EYES Q2H PRN 05/12/19 [History] Sennosides/Docusate Sodium [[place] Colace] 1 tab PO BID@0800,1700 05/12/19 [History] Artificial Tears-Hypromellose [Artificial Tear Drops] 1 drop BOTH EYES DAILY PRN 05/27/19 [History] Aspirin 81 mg PO DAILY@0800 05/27/19 [History] Eucerin Cream 1 applic TOPICAL BID 05/27/19 [History] Melatonin 3 mg PO HS@2100 05/27/19 [History] Polyethylene Glycol 3350 [Miralax] 17 gm PO DAILY PRN 05/27/19 [History] Potassium Chloride ER [K-Dur 20] 20 meq PO DAILY@0800 05/27/19 [History] ALPRAZolam [Xanax] 0.5 mg PO DAILY@0800 #1 tab 06/01/19 [Rx] ALPRAZolam [Xanax] 0.5 mg PO Q8H PRN #1 tab 06/01/19 [Rx] Acetaminophen Tab [Tylenol] 500 mg PO Q6HR PRN tab 06/01/19 [Rx] Cephalexin [Keflex] 500 mg PO Q8HR 10 Days #30 cap 06/01/19 [Rx] Furosemide [Lasix] 40 mg PO BID 30 Days #60 tablet 06/01/19 [Rx] HYDROcodone/APAP 5-325MG [[place] 5-325] 1 tab PO Q6HR PRN #4 tab 06/01/19 [Rx] Metoprolol Tartrate [Lopressor] 25 mg PO TID 30 Days #90 tab 06/01/19 [Rx] Follow up Appointment(s)/Referral(s): Charles Antoine MD [Primary Care Provider] - 1-2 days Discharge Disposition: - Preliminary Cause of Preliminary Cause of : Congestive heart failure, mitral regurgitation, severe pulmonary hypertensi
--- NOTE | 2019-06-08 15:57 | CDI ---
Documentation Clarification Form Date: 06/08/2019 03:22:24 PM From: Bella ABRAHAM,CCDS,RN Admit Date: 06/02/2019 01:50:00 PM Patient Name: Joshua Lr Visit Number: [id number] Discharge Date: 06/03/2019 08:12:00 PM ATTENTION: The Clinical Documentation Specialists (CDI) and [facility] Coding Staff appreciate your assistance in clarifying documentation. Please respond to the clarification below the line at the bottom and electronically sign. The CDI & [facility] Coding staff will review the response and follow-up if needed. Please note: Queries are made part of the Legal Health Record. If you have any questions, please contact the author of this message via ITS. Dr. Terry Haney Patient presented with initial troponin negative, subsequent troponin 0.025 and 0.196. Patient history/risk factors: 69-year-old with coronary artery disease and CABG 2013, valvular heart disease with prior mitral valve repair, chronic diastolic congestive heart failure, persistent atrial fibrillation, hypertension, hyperlipidemia, CKD, MT 2004 anemia, Mitral valve repair with most recent echo showing severe mitral regurgitation, severe tricuspid regurge was performed approximately 1 week ago with normal LV function, presenting with complaints of chest discomfort, difficulty in breathing. Admitted with acute kidney injury with ATN, Afib, and respiratory distress and Acute on Chronic Diastolic CHF Clinical indicators: 06/03/2019 Preliminary Cardiology consult notes feeling quite short of breath and having symptoms of chest pressure as well as some left upper abdominal discomfort. JVD rales and1 plus pitting edema. Acute on chronic diastolic CHF, chest pressure and heaviness possible acute coronary syndrome, initial troponin negative, subsequent troponin 0.025, 0.196. -2- HP notes Chest pressure and heaviness mild elevation of troponin possibility of acute Coronary syndrome cannot be ruled out there is some ST depressions with atrial fibrillation in the inferior leads cardiology is following him at the patient and further management as per them and initial troponin was negative subsequent troponin is 0.196 and this can be just because of the renal failure and A. fib itself. Pt was resuscitated and intubated with Code Blue called due to bradycardia with pt made DNR after noted PEA during code blue. Chest: Chest x-ray showed small to moderate bilateral effusions with adjacent atelectasis EKG per Cardiology progress notes showed atrial fibrillation with a rapid ventricular response and ST depression is noted in the inferior lateral leads. VS upon arrival 91/60 HR 1088 96% on room air VS 06/03/19 88/50 HR low 100s and 99% on 2L of O2, Treatment: decreased ASA to 81 mg daily, IV Lasix drip, continue Metoprolol and Nitro paste In your professional opinion, can you please specify the diagnosis, if any, indicated by the above clinical indicators and treatment? NSTEMI Type 2 MT due to(please specify) Demand Ischemia Other, please specify Unable to determine (Last Revision: January 2017) NSTEMI MTDD
--- NOTE | 2019-06-08 16:17 | CDI ---
Documentation Clarification Form Date: 06/08/2019 04:05:45 PM From: Bella ABRAHAM,CCDS,RN Admit Date: 06/02/2019 01:50:00 PM Patient Name: Joshua Lr Visit Number: [id number] Discharge Date: 06/03/2019 08:12:00 PM ATTENTION: The Clinical Documentation Specialists (CDI) and [facility] Coding Staff appreciate your assistance in clarifying documentation. Please respond to the clarification below the line at the bottom and electronically sign. The CDI & [facility] Coding staff will review the response and follow-up if needed. Please note: Queries are made part of the Legal Health Record. If you have any questions, please contact the author of this message via ITS. Dr. Lizzy Portillo A pressure ulcer of the Coccyx was documented in the nurses notes 06/03/2019 and in mechanical test technician consult 06/03/2019 as stage 2 POA. Clinical Indicators: 69 yo with repeated admission with Severe pulmonary hypertension, presenting with chest pressure weakness and SOB, Mineral [employer]er notes poor intake and Location: Coccyx Wound description: macerated with Erythema; notes photo was taken Treatment: Z guard applied and position changes. RD consult and nutritional supplements offered Consults: Elements for accurate and compliant documentation of an ulcer: *The location/laterality of the ulcer *Etiology (decubitus/pressure, diabetic, PVD) *Stage I-IV, Unstageable, Suspected Deep Tissue Injury (To the deepest stage) *If the ulcer was present at admission (POA) or occurred after admission In your professional opinion, can you please clarify the diagnosis, location, laterality and whether present on admission (POA): Stage 1 Pressure/Decubitus Ulcer (intact skin, non-blanching redness of local area) Stage 2 Pressure/Decubitus Ulcer (Partial thickness, loss of dermis, pink wound bed) Unstageable Other condition, please specify Unable to determine (Last Revision: January 2017) Stage 1 Pressure/Decubitus Ulcer (intact skin, non-blanching redness of local area) MTDD
--- NOTE | 2019-06-09 11:58 | CDI ---
Documentation Clarification Form Date: 06/09/2019 CDS\Substation Designer Name: Bella Alvarez YEMIN,CCDS,RN Visit Number: [id number] Admit Date: 06/02/2019 Discharge Date: 06/03/2019 Patient Name: Joshua Lr ATTENTION: The Clinical Documentation Specialists (CDI) and [facility] Coding Staff appreciate your assistance in clarifying documentation. Please respond to the clarification below the line at the bottom and electronically sign. The CDI & [facility] Coding staff will review the response and follow-up if needed. Please note: Queries are made part of the Legal Health Record. If you have any questions, please contact the author of this message via ITS. Dr. 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 CKD,HTN with acute Kidney injury and severe mitral regurge with poor hemodynamics. Clinical Indicators: 06/03/2019 HP notes is in respiratory distress, chest discomfort elevated troponin Cardiology consult Cardiology consult : difficulty in breathing, pleural effusion with adjacent atelectasis, feeling quite short of breath : bibasilar rales, JVD, pitting edema, 06/03/2019 Code blue called for bradycardia with attempt to pace and subsequent PEA. Chest 06/02/2019 [id number] effusions with adjacent atelectasis and/or consolidation. Correlate for possible mild CHF as an etiology. Relatively unchanged from prior. ABG 06/03/2019 pH 7.20 pCO2 29 pHCO3 11 Pao2 99 Lactate 6.3 Vital Signs: 91/60 Hr 108 96% on Room air to 88/50 HR low 102-109 s and 99% on 2l RR 20-22 Pulse Ox: 95 to 99% Labs: K 6.3 to 5.8 ,troponins 0.012, 0.024, 0.196, BNP 7550. Treatment: mechanical ventilation Oxygen: 2l on 06/03/2019, Medications: Duoneb, Tessalon pearls, nitropaste In order to accurately reflect the severity of condition, please indicate if the above clinical findings and treatment signify a respiratory condition, such as: Acute Respiratory Distress Respiratory Failure, please specify Acute Further specify (if known): With hypercapnia? With hypoxia? Other, please specify Unable to determine Already dictated_ MTDD
== END 2019-06-03 20:12 | disposition expired ==
LOC: SUPCPDRO 11:31 → EC 11:31 → 3SCARD 13:50 → 2SICU 06-03 18:17
PROVIDERS: ADMIT Hospitalist; ATTEND Hospitalist
PROC: 5A12012 Performance of Cardiac Output, Single, Manual (ICD-10-PCS; principal; 2019-06-03)
PROC: 5A12012 Performance of Cardiac Output, Single, Manual (ICD-10-PCS; 2019-06-03)
PROC: 5A12012 Performance of Cardiac Output, Single, Manual (ICD-10-PCS; 2019-06-03)
PROC: 5A1935Z Respiratory Ventilation, Less than 24 Consecutive Hours (ICD-10-PCS; 2019-06-03)
PROC: 0BH17EZ Insertion of Endotracheal Airway into Trachea, Via Natural or Artificial Opening (ICD-10-PCS; 2019-06-03)
DX: I13.0 Hypertensive heart and chronic kidney disease with heart failure and stage 1 through stage 4 chronic kidney disease, or unspecified chronic kidney disease (principal); I50.33 Acute on chronic diastolic (congestive) heart failure; I21.4 Non-ST elevation (NSTEMI) myocardial infarction; N17.0 Acute kidney failure with tubular necrosis; E87.1 Hypo-osmolality and hyponatremia; I48.19 Other persistent atrial fibrillation; J98.11 Atelectasis; D64.9 Anemia, unspecified; E78.5 Hyperlipidemia, unspecified; E87.5 Hyperkalemia; Z66 Do not resuscitate; F41.9 Anxiety disorder, unspecified; I08.1 Rheumatic disorders of both mitral and tricuspid valves; I25.10 Atherosclerotic heart disease of native coronary artery without angina pectoris; Z87.891 Personal history of nicotine dependence; I25.2 Old myocardial infarction; I27.29 Other secondary pulmonary hypertension; I42.9 Cardiomyopathy, unspecified; K74.60 Unspecified cirrhosis of liver; N18.3 Chronic kidney disease, stage 3 (moderate); Z79.82 Long term (current) use of aspirin; Z79.899 Other long term (current) drug therapy; Z82.49 Family history of ischemic heart disease and other diseases of the circulatory system; Z95.1 Presence of aortocoronary bypass graft; Z95.5 Presence of coronary angioplasty implant and graft; K55.20 Angiodysplasia of colon without hemorrhage; Z88.8 Allergy status to other drugs, medicaments and biological substances; R79.89 Other specified abnormal findings of blood chemistry; Z87.820 Personal history of traumatic brain injury; I46.2 Cardiac arrest due to underlying cardiac condition
CPT/HCPCS: 36415; 36600; 71046; 80053; 80061; 81003; 82150; 82805; 83540; 83550; 83605; 83690; 83735; 83880; 84100; 84484; 85025; 85027; 85610; 85730; 92950; 93005; 94002; 94770; 99285